=== PATIENT | female | born 1960 | race Caucasian/White ===

== ENCOUNTER 2019-12-13 08:59 | Outpatient (REF) | payer MEDICARE, MEDICAID, SELFPAY | END 2019-12-13 09:00 | disposition home or self-care (01) | LOC: HO.RADIR 08:59 | PROVIDERS: PCP Nurse Practitioner Family; Referring Provider Nurse Practitioner Family; Visit Provider Anesthesiology | DX: M96.1 Postlaminectomy syndrome, not elsewhere classified (principal); A69.20 Lyme disease, unspecified; G89.4 Chronic pain syndrome | CPT/HCPCS: 62370 ==

== ENCOUNTER 2020-01-24 | Outpatient (REF) | payer MEDICARE, MEDICAID, SELFPAY | END 2020-01-24 00:01 | LOC: CF | PROVIDERS: Visit Provider Anesthesiology | DX: M96.1 Postlaminectomy syndrome, not elsewhere classified (principal); Z79.899 Other long term (current) drug therapy | CPT/HCPCS: 62370 ==

== ENCOUNTER 2020-02-28 05:47 | Outpatient (REF) | payer MEDICARE, MEDICAID, SELFPAY ==
--- NOTE | 2020-02-28 08:14 | FL_ITS ---
EXAMINATION: XR FLUOROSCOPY WITH IMAGES CLINICAL INFORMATION: Post laminectomy syndrome. COMPARISON: None. TECHNIQUE: Fluoroscopy performed by Stacie Barber NP. Fluoroscopy time: 0.2 minutes DAP: 3.61 Gycm2 Images: 1 FINDINGS: There is hardware battery pack overlying the left iliac crest. No gross soft tissue abnormality seen. FL/FL guidance in treatment room IMPRESSION: Single image overlying the iliac bone was obtained with hardware battery pack visualized.
== END 2020-02-28 05:48 | disposition home or self-care (01) ==
LOC: HO.RADIR 05:47
PROVIDERS: Visit Provider Anesthesiology
DX: M96.1 Postlaminectomy syndrome, not elsewhere classified (principal)
CPT/HCPCS: 61070; Q9967

== ENCOUNTER 2020-03-05 08:10 | Day surgery (SDC) | payer MEDICARE, MEDICAID, SELFPAY ==
[2020-03-05] VITALS (11 sets, daily range): BP systolic 111–151; BP diastolic 70–90; PULSE 70–80; RESP 16–20; TEMP 36.1–36.4; O2SAT 95–98; BMI 33.7
--- NOTE | 2020-03-05 08:24 | MHC.SHP ---
Pre-Procedural Eval Section A The patient is an INPATIENT: No The History & Physical has been completed within 30 days and I have reviewed it.: No Section B Chief Complaint: postlaminectomy syndrome Details of Present Illness: malfunction of the IT catheter Relevant Family History (Specify if Yes): No Relevant Social History: None Present Medications: see Short Stay Collaborative assessment Medical History: No relevant PMH History of Previous Operations: Relevant previous surgery/procedure and date(s) Allergies: Allergies Allergy/AdvReac Type Severity Reaction Status Date / Time codeine Allergy Unknown Unknown Verified 02/28/20 09:11 nabumetone Allergy Unknown unknown Verified 02/28/20 09:11 adhesive tape Allergy Unknown Unknown Uncoded 12/13/19 09:27 latex Allergy Unknown unknown Uncoded 12/13/19 09:27 pollen Allergy Unknown Unknown Uncoded 12/13/19 09:27 Review of Systems Sugical H&P ROS: Negative: Cardiovascular, Respiratory, Neurological, Psychiatric, Hem-Onc, Allergic/Immunologic, Gastrointestinal, Genitourinary, Musculoskeletal, Integumentary, Endocrine and Eyes/Ears/Nose/Throat and Yes, Specify: Constitution (obesity) Exam Surgical H&P Exam: Normal: HEENT, Normal: Heart, Normal: Lungs, Normal: Extremities, Normal: Abdomen, Normal: Skin and Normal: Neurological Plan Diagnosis/Plan: Unchanged I have reviewed the history and physical and performed a pertinent physical examination on my patient. No changes have occurred unless specified.
[2020-03-05] MEDS: Lactated Ringers 1,000 ML 100 ML IVCONT (09:11)
[2020-03-05] MEDS: ceFAZolin Sodium/Dextrose,Iso 2 GM/50 ML PIGGYBACK IV (09:14)
--- NOTE | 2020-03-05 09:42 | HO.ANESPROP2 ---
HPI - Anesthesia Eval Consult details Narrative: 60 yo female patient here for removal and replacement of intrathecal drug delivery implanted catheter. [facility] Past Medical History Medical History (Updated 03/05/20 @ 09:55 by Kori Rod) Back pain COPD (chronic obstructive pulmonary disease) GERD (gastroesophageal reflux disease) Hypothyroid Increased BMI Postlaminectomy syndrome Presence of intrathecal pump Family History Family history of problems with anesthesia: No Surgical History Surgical History (Updated 03/05/20 @ 09:52 by Fina Reynolds RN) History of hip surgery History of hysterectomy History of Problems with Anesthesia: Yes (Slow awakening) Social History Social History (Updated 03/05/20 @ 09:55 by Kori Rod) Smoking Status: Current every day smoker Packs Per Day: 1.5 Cigarettes Per Day: 30.0 Smoked in Last 30 Days: Yes Use of substances other than those prescribed or required for medical reasons: No Advance Directives: No Advance Directives Information Provided: No Recently lost weight without trying: No Meds Allergies Allergy/AdvReac Type Severity Reaction Status Date / Time codeine Allergy Unknown Unknown Verified 02/28/20 09:11 nabumetone Allergy Unknown unknown Verified 02/28/20 09:11 adhesive tape Allergy Unknown Unknown Uncoded 12/13/19 09:27 latex Allergy Unknown unknown Uncoded 12/13/19 09:27 pollen Allergy Unknown Unknown Uncoded 12/13/19 09:27 Home Medications Medication Instructions Recorded Confirmed Type cholecalciferol (vitamin D3) 1 tab PO BID 03/05/20 03/05/20 History [Vitamin D3] escitalopram oxalate 1 tab PO DAILY 03/05/20 03/05/20 History fluconazole PO 03/05/20 History fluticasone propionate [Flovent INHALATION 03/05/20 History HFA] lorazepam 2 tab PO BID PRN 03/05/20 03/05/20 History omeprazole 1 cap PO DAILY 03/05/20 03/05/20 History Exam Exam Date and Time: March 05, 2020 0942 Height,Weight and Vital Signs: Height 5 ft 10 in Weight 106.594 kg Last Vital Signs Temp 97.6 F 03/05/20 08:53 Pulse 73 03/05/20 08:53 Resp 16 03/05/20 08:53 BP 121/70 03/05/20 08:53 Pulse Ox 98 03/05/20 08:53 Assessment and Plan Assessment Anesthesia Assessment: Anesthesia Plan Discussed and Chart Reviewed Final Anesthetic Review NPO: No (Black dillon 7am) ASA Class: II Final Preanesthetic Review: No Changes in Pt Med Stat, Meds/Allgs Chart Reviewed and Anes Risks/Benef Reviewed Patient Risk: Intermediate Procedure Risk: Low Anesthetic Plan Anesthetic Plan: GA Disposition: Standard PACU
--- NOTE | 2020-03-05 10:38 | FL_ITS ---
EXAMINATION: XR FLUOROSCOPY WITH IMAGES CLINICAL INFORMATION: Postlaminectomy syndrome. COMPARISON: Fluoroscopic spot images 02/28/2020 TECHNIQUE: Fluoroscopy performed by Dr. Duc Slaughter. Fluoroscopy time: 0.5 minutes DAP: 3.03 Gycm2 Images: 2 FINDINGS: There is a catheter with guidewire in the spinal canal, cyber special agent likely upper lumbar region. Pump device again seen. There are degenerative changes lower thoracic spine with disc narrowing and vertebral spurring and borderline loss of height. FL/FL guidance in OR IMPRESSION: Fluoroscopy for pain management procedure.
--- NOTE | 2020-03-05 14:05 | PM.OP ---
Brief Operative Note Date of Service: 03/05/20 Pre-op diagnosis: postlaminectomy syndrome Procedure: revision and replacement of intrathecal cather Implants: re- implantation of synchromed II pain pump Surgeon: Duc Slaughter MD Anesthesia: GETA Estimated blood loss (mL): 5 Condition: stable Disposition: PACU
[2020-03-05] MEDS: fentaNYL citrate/PF 100 MCG/2 ML VIAL 25 MCG IVPUSH ×2 (14:47→14:53)
[2020-03-05] MEDS: oxyCODONE HCl Immed Release 5 MG TABLET PO (14:52)
--- NOTE | 2020-03-05 17:36 | P.BOP_ITS ---
Brief Operative Note Surgeon: Duc Slaughter MD
--- NOTE | 2020-03-05 17:36 | PM.OP ---
Brief Operative Note Surgeon: Duc Slaughter MD
--- NOTE | 2020-03-05 17:37 | W.PM.OPN ---
Operative Note Operative Note Date of Service: 03/05/20 Narrative: Name of the surgery: Removal and revision of the intrathecal catheter reimplantation of the intrathecal pain pump.. Preoperative diagnosis: Postlaminectomy syndrome. Postoperative diagnosis: The same Anesthesia general endotracheal anesthesia Preoperative antibiotic: Cefazolin 2 g IV 30 minutes before the incision. Postoperatively patient will continue with Keflex 500 mg 2 pills every 6 hours for next 14 days. .. Patient will take probiotics in between his antibiotic doses. After obtaining informed consent with explanation to the patient about the risks of bleeding, infection, epidural hematoma, epidural abscess, failure to reduce the pain, the patient was brought to the operating room. She was positioned supine on the operating table and [employer] [employer] monitors were applied to the patient. General anesthesia was induced and endotracheal intubation was performed. The patient was turned on right lateral decubital position with axillary roll and a airplane support -on non dependent left forearm and arm. The patient's back left flank and left anterior abdomen was prepped with ChloraPrep 3 times t and draped with sterile full body drapes. Ioban film was involved. Sterilely draped C-arm was brought over the operating field and lateral picture of the L5 through L1 vertebra as were obtained on the screen. The entrance point was ill in delineated as the L1-L2 interspace. Local anesthetic was injected into the projection of the spinal processes of L3-L4 vertebrae. Fifteen blade scalpel was used to make longitudinal strict midline incision approximately 6 cm long. The incision was widened using [place] retractor. Thorough hemostasis was performed with electrocautery. The underlying fat tissues were severed and the prevertebral fascia was freed and exposed. Projection of the right pedicle to the prevertebral fascia was uses in the entrance point of the introducer 14 gauge needle. The needle was advanced to wired the intrathecal space on anterior posterior and lateral views. When needle entered the intrathecal space free flow of CSF was demonstrated in the needle. The CSF was clear straw-colored and without any addition of the blood. Intrathecal catheter was inserted through the needle into the intrathecal space and advanced to were the T8 vertebra on lateral projection. The catheter was appear to be in the posterior intrathecal space. Tycron sutures 2-0 was used to perform a pursestring suture surrounding the introducer needle. The pursestring suture was tied and after that the introducer needle was slowly withdrawn. Care was taken to control the position of the tip of the catheter at the T8 vertebra in lateral projection. The stylet was removed from the catheter with the needle. The anchoring device was dislodged on the catheter and advanced to the level of prevertebral fascia. Tycron sutures were used to suture the anchoring device to the prevertebral fascia. After that the wound was irrigated with vancomycin containing irrigation. The wound was packed with vancomycin solution soaked 4 x 4. The attention then was concentrated on the left abdomen of the patient where the scar of the previous implantation of the pain pump was delineated. The scar was injected with local anesthetic and using 15 blade scalpel the scar was excised with underlying fat tissues. Intrathecal pump was discovered in the pocket a and delivered to the level of the skin. Intrathecal catheter was examined and severed from the catheter. Scan flow of CSF was observed . The CSF was clear in nature. The remnant of the catheter was folded on itself and 2 silk sutures were used to tie the old intrathecal catheter on. After that the posterior wall of the pump capsule pocket was incised a and the intrathecal catheter was inserted into the incision. None interrupted again suture was used to close this incision in the posterior wall of the capsule. Thorough irrigation was performed with vancomycin containing normal saline. Intrathecal catheter was delivered on operating table. It was examined and found without significant problems. After that tunneling device was used to connect both wounds through 1 additional small incision on the patient's flank. Intrathecal catheter was advanced through subcutaneous tissue into the abdominal wound. Sutureless connection device was mounted on the intrathecal catheter and fastened with sutureless connector. After that it was connected to the pump. 24 gauge noncoring needle was inserted through the lateral port of the pump and clear flow of CSF was demonstrated with aspiration of 3 cc syringe. Anchoring sutures in most superior lateral most superior medial and most inferior medial corners of the wounds were applied using Tycron stitch. The sutures were connected to the side brackets of the pump, the pump was dislodged into the pocket wound, the sutures were tied. After that 24 gauge needle mounted on 3 cc syringe was again inserted into the side port of the catheter. The clear flow of CSF was again demonstrated into the 3 cc syringe. The wounds were irrigated, dried out, and closed using 0 Vicryl sutures to close the wound, 2-0 Vicryl to approximate the edges of the skin, and williams to apply to the level of the skin. Sterile dressings with bacitracin ointment were applied using Tegaderm. After that the patient was turned on supine awaken and extubated she was transferred to PACU where she recovered uneventfully. She went home without immediate complications.
== END 2020-03-05 15:58 | disposition home or self-care (01) ==
PROVIDERS: PCP Nurse Practitioner Family; Visit Provider Anesthesiology
PROC: (CPT 62350; principal; 2020-03-05 10:00)
DX: M96.1 Postlaminectomy syndrome, not elsewhere classified (principal); J44.9 Chronic obstructive pulmonary disease, unspecified; Z79.899 Other long term (current) drug therapy; Z91.040 Latex allergy status; Z88.8 Allergy status to other drugs, medicaments and biological substances
CPT/HCPCS: 62350; 62362; C1755; J0330; J0690; J1100; J2250; J2370; J2405; J2765; J3010; J3370

== ENCOUNTER → 2020-03-06 08:56 | Outpatient (BNVA) | payer MEDICARE, MEDICAID, SELFPAY | PROVIDERS: PCP Nurse Practitioner Family; Visit Provider Anesthesiology | DX: M96.1 Postlaminectomy syndrome, not elsewhere classified (principal) | CPT/HCPCS: 99212 ==

== ENCOUNTER → 2020-03-14 13:48 | Outpatient (BNVA) | payer MEDICARE, MEDICAID, SELFPAY | PROVIDERS: PCP Nurse Practitioner Family; Visit Provider Anesthesiology | DX: M96.1 Postlaminectomy syndrome, not elsewhere classified (principal) | CPT/HCPCS: 99212 ==

== ENCOUNTER 2020-03-19 11:42 | Outpatient (REF) | payer MEDICARE, MEDICAID, SELFPAY | END 2020-03-19 11:43 | disposition home or self-care (01) | LOC: HO.RADIR 11:42 | PROVIDERS: PCP Nurse Practitioner Family; Visit Provider Anesthesiology | DX: Z13.89 Encounter for screening for other disorder (principal) ==

== ENCOUNTER 2020-06-05 06:12 | Outpatient (REF) | payer MEDICARE, MEDICAID, SELFPAY | END 2020-06-05 06:13 | disposition home or self-care (01) | LOC: HO.RADIR 06:12 | PROVIDERS: Visit Provider Anesthesiology | DX: Z13.89 Encounter for screening for other disorder (principal) ==

== ENCOUNTER 2020-08-21 06:17 | Outpatient (REF) | payer MEDICARE, MEDICAID, SELFPAY | END 2020-08-21 06:18 | disposition home or self-care (01) | LOC: HO.RADIR 06:17 | PROVIDERS: Visit Provider Anesthesiology | DX: Z13.89 Encounter for screening for other disorder (principal) ==

== ENCOUNTER 2020-11-13 06:25 | Outpatient (REF) | payer MEDICARE, MEDICAID, SELFPAY | END 2020-11-13 06:26 | disposition home or self-care (01) | LOC: HO.RADIR 06:25 | PROVIDERS: Visit Provider Anesthesiology | DX: Z13.89 Encounter for screening for other disorder (principal) ==

== ENCOUNTER 2021-02-12 06:09 | Outpatient (REF) | payer MEDICARE, MEDICAID, SELFPAY | END 2021-02-12 06:10 | disposition home or self-care (01) | LOC: HO.RADIR 06:09 | PROVIDERS: Visit Provider Anesthesiology | DX: Z13.89 Encounter for screening for other disorder (principal) ==

== ENCOUNTER 2021-05-07 06:03 | Outpatient (REF) | payer MEDICARE, MEDICAID, SELFPAY | END 2021-05-07 06:04 | disposition home or self-care (01) | LOC: HO.RADIR 06:03 | PROVIDERS: Visit Provider Anesthesiology | DX: Z13.89 Encounter for screening for other disorder (principal) ==

== ENCOUNTER → 2021-06-03 13:58 | Outpatient (BNVA) | payer MEDICARE, MEDICAID, SELFPAY | PROVIDERS: PCP Nurse Practitioner Family; Visit Provider Anesthesiology | DX: Z45.1 Encounter for adjustment and management of infusion pump (principal); G89.4 Chronic pain syndrome; M96.1 Postlaminectomy syndrome, not elsewhere classified | CPT/HCPCS: 99212 ==

== ENCOUNTER → 2021-06-05 15:33 | Outpatient (BNVA) | payer MEDICARE, MEDICAID, SELFPAY | PROVIDERS: PCP Nurse Practitioner Family; Visit Provider Anesthesiology | DX: M96.1 Postlaminectomy syndrome, not elsewhere classified (principal); G89.4 Chronic pain syndrome; Z97.8 Presence of other specified devices | CPT/HCPCS: 99212 ==

== ENCOUNTER 2021-07-17 06:16 | Outpatient (REF) | payer MEDICARE, MEDICAID, SELFPAY | END 2021-07-17 06:17 | disposition home or self-care (01) | LOC: HO.RADIR 06:16 | PROVIDERS: Visit Provider Internal Medicine | DX: Z45.1 Encounter for adjustment and management of infusion pump (principal); G89.4 Chronic pain syndrome; M25.562 Pain in left knee; Z97.8 Presence of other specified devices | CPT/HCPCS: 62370; 64447 ==

== ENCOUNTER → 2021-08-16 11:51 | Outpatient (BNVA) | payer MEDICARE, MEDICAID, SELFPAY | PROVIDERS: PCP Nurse Practitioner Family; Visit Provider Internal Medicine | DX: G89.4 Chronic pain syndrome (principal); M25.562 Pain in left knee; Z98.890 Other specified postprocedural states | CPT/HCPCS: Q3014 ==

== ENCOUNTER 2021-10-09 08:47 | Day surgery (SDC) | payer MEDICARE, MEDICAID, SELFPAY ==
[2021-10-09 09:00] VITALS: BMI 33.0
[2021-10-09 09:05] VITALS: BP 125/63; PULSE 73; RESP 18; TEMP 36.8; O2SAT 97
--- NOTE | 2021-10-09 10:36 | MHC.SHP ---
Pre-Procedural Eval Section A Date of Service: 10/09/21 The patient is an INPATIENT: No Changes since office visit: Yes Patient answered all questions The History & Physical has been completed within 30 days and I have reviewed it.: No Section B Chief Complaint: left knee pain Relevant Family History (Specify if Yes): No Relevant Social History: None Present Medications: see Short Stay Collaborative assessment Medical History: No relevant PMH History of Previous Operations: No relevant previous surgery Allergies: Allergies Allergy/AdvReac Type Severity Reaction Status Date / Time codeine Allergy Unknown Unknown Verified 09/23/21 10:46 nabumetone Allergy Unknown unknown Verified 09/23/21 10:46 adhesive tape Allergy Unknown Unknown Uncoded 09/23/21 10:46 latex Allergy Unknown unknown Uncoded 09/23/21 10:46 pollen Allergy Unknown Unknown Uncoded 09/23/21 10:46 Review of Systems Sugical H&P ROS: Negative: Constitution, Cardiovascular and Respiratory Exam Surgical H&P Exam: Normal: HEENT, Normal: Heart and Normal: Lungs Plan I have reviewed the history and physical and performed a pertinent physical examination on my patient. No changes have occurred unless specified.
--- NOTE | 2021-10-09 10:37 | P.BOP_ITS ---
Brief Operative Note Date of Service: 10/09/21 Pre-op diagnosis: Left chronic knee pain Post-op diagnosis: same Procedure: Left saphenous nerve temporary peripheral nerve stimulator placement Implants: Sprint PNS system Surgeon: Timi Wong MD Anesthesia: local Was an Marketing Production Specialist used for this Procedure?: No Estimated blood loss (mL): 2 Pathology: none sent Condition: stable Disposition: same day
--- NOTE | 2021-10-09 10:38 | W.PM.OPN ---
Operative Note Operative Note Date of Service: 10/09/21 Narrative: Peripheral Nerve Stimulation Temporary Lead Placement, Ultrasound-Guided, Saphenous Nerve, Left ? After the risks, benefits and alternatives were discussed with the patient and informed consentwas obtained, patient was placed in the supine position and padded to foster comfort. Appropriate skin and bony landmarks were identified, and pertinent vascular structures were located. The skin overlying the needle entry site was prepped and draped in sterile fashion. Ultrasound was used to identify the femoral artery, the femoral vein and the saphenous nerve. After identifying and marking the intended target along the course of the saphenous nerve, the skin around the planned entry point and the subcutaneous tissues were injected with local anesthetic. An introducer needle and stimulating probe were assembled, inserted and advanced along the intended course of the saphenous; nerve, taking care to maintain the proper depth of insertion as the introducer was advanced under ultrasound guidance. The introducer needle was delivered to a location in proximity to the nerve taking care not to puncture the femoral artery or the vein. Multiple stimulation parameters were used to deliver stimulation to the saphenous nerve in concert with stimulating at multiple positions around the nerve. Nerve target acquisition was confirmed noting generation of sensory and mild motor effects (paresthesia, muscle tension, etc) in the medial knee; corresponding to the distribution of the saphenous nerve. Various electrical parameter combinations were tested, and the lead location was adjusted (physically relocated under ultrasound guidance) until the patient indicated medial knee paresthesia and tension overlapping the distribution of the patient?s typical region of pain. The stimulating probe was removed from the introducer and a percutaneous lead was guided through the needle and delivered to a location in similar proximity to the nerve. Final location was verified with electrical stimulation and documented. The introducer needle was removed, and the exposed end of the percutaneous lead was attached to an external stimulator unit. Various electrical parameter combinations were again tested until the patient indicated paresthesia and muscle tension overlapping the distribution of the patient?s typical region of pain. After confirming that lead impedance was in the normal range, the external unit was detached, the needle was removed, and the lead was anchored at the skin. The lead was threaded into the connector block and electrical continuity and desired patient response was confirmed. The connector block was attached to the external stimulator unit. The site was covered with a sterile occlusive dressing. A final ultrasound image was taken to document final placement. The patient was observed for stability of vital signs and comfort.
[2021-10-09 11:16] VITALS: BP 118/64; PULSE 74; RESP 18; TEMP 36.4; O2SAT 96
== END 2021-10-09 12:35 | disposition home or self-care (01) ==
PROVIDERS: PCP Nurse Practitioner Family; Visit Provider Internal Medicine
PROC: (CPT 64555; principal; 2021-10-09 10:10)
DX: M25.562 Pain in left knee (principal); G89.4 Chronic pain syndrome; M54.9 Dorsalgia, unspecified; J44.9 Chronic obstructive pulmonary disease, unspecified; E03.9 Hypothyroidism, unspecified; Z88.8 Allergy status to other drugs, medicaments and biological substances; Z91.040 Latex allergy status; Z97.8 Presence of other specified devices; F17.210 Nicotine dependence, cigarettes, uncomplicated
CPT/HCPCS: 64555; C1778

== ENCOUNTER → 2021-10-21 09:41 | Outpatient (BNVA) | payer MEDICARE, MEDICAID, SELFPAY | PROVIDERS: PCP Nurse Practitioner Family; Visit Provider Internal Medicine | DX: M25.562 Pain in left knee (principal); G89.4 Chronic pain syndrome; Z79.899 Other long term (current) drug therapy | CPT/HCPCS: 99212 ==

== ENCOUNTER → 2021-12-06 09:13 | Outpatient (BNVA) | payer MEDICARE, MEDICAID, SELFPAY | PROVIDERS: PCP Nurse Practitioner Family; Visit Provider Internal Medicine | DX: M25.561 Pain in right knee (principal); M25.562 Pain in left knee | CPT/HCPCS: 20610; 99212 ==

== ENCOUNTER → 2022-02-03 10:55 | Outpatient (BNVA) | payer MEDICARE, MEDICAID, SELFPAY | PROVIDERS: PCP Nurse Practitioner Family; Visit Provider Anesthesiology | DX: M96.1 Postlaminectomy syndrome, not elsewhere classified (principal); M25.561 Pain in right knee; M25.562 Pain in left knee; G89.4 Chronic pain syndrome | CPT/HCPCS: 99212 ==

== ENCOUNTER → 2022-04-09 10:50 | Outpatient (BNVA) | payer MEDICARE, MEDICAID, SELFPAY | PROVIDERS: PCP Nurse Practitioner Family; Visit Provider Anesthesiology | DX: M96.1 Postlaminectomy syndrome, not elsewhere classified (principal); M25.561 Pain in right knee; M25.562 Pain in left knee; G89.4 Chronic pain syndrome | CPT/HCPCS: 99212 ==

== ENCOUNTER → 2022-04-16 13:58 | Outpatient (BNVA) | payer MEDICARE, MEDICAID, SELFPAY | PROVIDERS: PCP Nurse Practitioner Family; Visit Provider Anesthesiology | DX: G89.4 Chronic pain syndrome (principal); M54.9 Dorsalgia, unspecified; M25.561 Pain in right knee; M25.562 Pain in left knee; M96.1 Postlaminectomy syndrome, not elsewhere classified; Z97.8 Presence of other specified devices | CPT/HCPCS: 99212 ==

== ENCOUNTER → 2022-06-11 10:25 | Outpatient (BNVA) | payer MEDICARE, MEDICAID, SELFPAY | PROVIDERS: PCP Nurse Practitioner Family; Visit Provider Anesthesiology ==

== ENCOUNTER → 2022-09-18 10:02 | Outpatient (BNVA) | payer MEDICARE, MEDICAID, SELFPAY | PROVIDERS: PCP Nurse Practitioner Family; Visit Provider Anesthesiology ==

== ENCOUNTER 2022-12-24 09:57 | Outpatient (AMB) | payer MEDICARE, MEDICAID, SELFPAY ==
--- NOTE | 2022-12-24 10:00 | A.OFFVIS_ITS ---
Intake Vital Signs 12/24/22 10:09 Height 5 ft 10 in Weight 206 lb 6 oz BMI 29.6 BP 126/72 Position Sitting Respiration 16 Pulse 94 Pulse Source Pulse Oximeter Pulse Oximetry (%) 94 Oxygen Delivery Method Room Air Intake Visit Reasons: ITDD Refill Allergies codeine Allergy (Unknown, Verified 12/24/22 10:10) Unknown nabumetone Allergy (Unknown, Verified 12/24/22 10:10) unknown adhesive tape Allergy (Unknown, Uncoded 04/09/22 12:27) Unknown latex Allergy (Unknown, Uncoded 04/09/22 12:27) unknown pollen Allergy (Unknown, Uncoded 04/09/22 12:27) Unknown HPI HPI Comments History of Present Illness Details Danielle is 62 years old very nice lady who is in my office for intrathecal pain pump refill. Her pain pump is located in the left abdomen. She is not on any oral opioid medications. She reports good efficient pain relief on the pain pump. Her pump is 40 cc. The pump refilled as below. I will schedule her appointment with me in 90 days for the next pump refill. [facility] Medical History (Updated 12/06/21 @ 12:11 by Timi Wong MD) Presence of intrathecal pump Chronic pain syndrome Increased BMI Presence of intrathecal pump Back pain Hypothyroid GERD (gastroesophageal reflux disease) COPD (chronic obstructive pulmonary disease) Postlaminectomy syndrome Surgical History (Updated 03/05/20 @ 09:52 by Fina Reynolds RN) History of hip surgery History of hysterectomy Social History (Updated 03/05/20 @ 09:55 by Kori Rod MD) Cigarette Packs Per Day: 1.5 Cigarettes Per Day: 30.0 Review of Systems Const All systems reviewed & are unremarkable except as noted in HPI and below Physical Exam Vital Signs: Last Vital Signs Pulse 94 12/24/22 10:09 Resp 16 12/24/22 10:09 BP 126/72 12/24/22 10:09 Pulse Ox 94 12/24/22 10:09 Oxygen Delivery Method Room Air 12/24/22 10:09 BMI result Body Mass Index 29.6 Eyes General: appearance normal, both eyes and all related structures EOM: EOMs intact bilaterally Neck Neck: Yes full ROM Chest Chest palpation & inspection: normal inspection of the chest Resp Effort & Inspection: normal respiratory effort, able to speak in complete sentences, normal respiratory pattern, no audible wheezes and no cough Cardio Jugular venous distension: no JVD GI Inspection: Yes normal to inspection Back/Spine/Pelvis Back: No mass, No erythema and No warmth Assessment & Plan Assessment & Plan (1) Postlaminectomy syndrome: Code(s): M96.1 - Postlaminectomy syndrome, not elsewhere classified Plan: THE PATIENT CAME TODAY IN THE office FOR THE CHANGE OF THE MEDICATION IN her PAIN PUMP. The name and date of were verified and informed consent was obtained for the procedure. The pump was interrogated and the residual amount of fluid was found to be 5.6 mL. SHE WAS POSITIONED supine on the bed AND THE AREA OF THE INTRATHECAL PUMP WAS PREPPED WITH CHLORAPREP. The fenestrated drape was sterilely applied over the area of the pump. Sterile gloves were worn and of the aspiration system was assembled containing 2 in 22 gauge non-coring needle, the needle was connected to extension tubing which was connected to the 20 cc sterile syringe. The pain pump was palpated under the skin in the patient's left abdominal area. The needle was inserted through the skin and the central plug of the pain pump and fluid was aspirated. The clear fluid was going into the syringe the total amount of the fluid was 6.3 mL. After that a new batch of medication was obtained which was containing morphine 2 mg and bupivacaine 15 mg per mL. The admixture was made in two 20 cc cc syringe prepared by [facility] compounding pharmacy. The syringe was connected to the bacterial filter, and then connected to the extension tubing. After that the medication in the syringe was slowly instilled into the pump with aspirations at 35 , 25 and 10 and 5 cc sanchez. The programing of the pump left as it was before. Her next appointment is on on before March of 2023. The next batch of the medication will contain morphine 2 mg and bupivacaine 15 milligrams/mL (2) Bilateral knee pain: Code(s): M25.561 - Pain in right knee; M25.562 - Pain in left knee (3) Left knee pain: Code(s): M25.562 - Pain in left knee (4) Chronic pain syndrome: Code(s): G89.4 - Chronic pain syndrome Plan: She complains today on will slightly stronger level of pains and inability to activate the device when she needs to activate them. Coding Level of Care Code Est Pt Level 3 (62804) Procedure Only Diagnoses Postlaminectomy syndrome M96.1 Bilateral knee pain M25.561; M25.562 Left knee pain M25.562 Chronic pain syndrome G89.4
[2022-12-24 10:09] VITALS: BP 126/72; PULSE 94; RESP 16; O2SAT 94; BMI 29.6
== END 2022-12-24 10:26 | disposition home or self-care (01) ==
PROVIDERS: PCP Nurse Practitioner Family; Visit Provider Anesthesiology
DX: Z45.1 Encounter for adjustment and management of infusion pump (principal); G89.4 Chronic pain syndrome; M96.1 Postlaminectomy syndrome, not elsewhere classified; M25.561 Pain in right knee; M25.562 Pain in left knee
CPT/HCPCS: 95991

== ENCOUNTER → 2022-12-24 09:57 | Outpatient (BNVA) | payer MEDICARE, MEDICAID, SELFPAY | PROVIDERS: PCP Nurse Practitioner Family; Visit Provider Anesthesiology ==

== ENCOUNTER 2023-03-25 09:55 | Outpatient (AMB) | payer MEDICARE, MEDICAID, SELFPAY ==
--- NOTE | 2023-03-25 10:10 | MHC.OFFVIS ---
Intake Vital Signs 03/25/23 10:42 Height 5 ft 10 in Weight 201 lb BMI 28.8 BP 136/60 Blood Pressure Location Lt brachial Position Sitting Respiration 14 Pulse 99 Pulse Source Pulse Oximeter Pulse Oximetry (%) 100 Oxygen Delivery Method Room Air Intake Visit Reasons: ITDD REFILL Intake Note: Patient comes in for intrathecal medication refill. Reports pain 0/10. Allergies codeine Allergy (Unknown, Verified 03/25/23 10:43) Unknown nabumetone Allergy (Unknown, Verified 03/25/23 10:43) unknown adhesive tape Allergy (Unknown, Uncoded 04/09/22 12:27) Unknown latex Allergy (Unknown, Uncoded 04/09/22 12:27) unknown pollen Allergy (Unknown, Uncoded 04/09/22 12:27) Unknown [facility] Medical History (Updated 12/06/21 @ 12:11 by Timi Wong MD) Presence of intrathecal pump Chronic pain syndrome Increased BMI Presence of intrathecal pump Back pain Hypothyroid GERD (gastroesophageal reflux disease) COPD (chronic obstructive pulmonary disease) Postlaminectomy syndrome Surgical History (Updated 03/05/20 @ 09:52 by Fina Reynolds RN) History of hip surgery History of hysterectomy Social History (Updated 03/05/20 @ 09:55 by Kori Rod MD) Cigarette Packs Per Day: 1.5 Cigarettes Per Day: 30.0 Physical Exam Vital Signs: Last Vital Signs Pulse 99 03/25/23 10:42 Resp 14 03/25/23 10:42 BP 136/60 03/25/23 10:42 Pulse Ox 100 03/25/23 10:42 Oxygen Delivery Method Room Air 03/25/23 10:42 BMI result Body Mass Index 28.8 Assessment & Plan Assessment & Plan (1) Postlaminectomy syndrome: Code(s): M96.1 - Postlaminectomy syndrome, not elsewhere classified Plan: THE PATIENT CAME TODAY IN THE office FOR THE CHANGE OF THE MEDICATION IN her PAIN PUMP. The name and date of were verified and informed consent was obtained for the procedure. The pump was interrogated and the residual amount of fluid was found to be 7.6 mL. SHE WAS POSITIONED supine on the bed AND THE AREA OF THE INTRATHECAL PUMP WAS PREPPED WITH CHLORAPREP. The fenestrated drape was sterilely applied over the area of the pump. Sterile gloves were worn and of the aspiration system was assembled containing 2 in 22 gauge non-coring needle, the needle was connected to extension tubing which was connected to the 20 cc sterile syringe. The pain pump was palpated under the skin in the patient's left abdominal area. The needle was inserted through the skin and the central plug of the pain pump and fluid was aspirated. The clear fluid was going into the syringe the total amount of the fluid was7.8 mL. After that a new batch of medication was obtained which was containing morphine 2 mg and bupivacaine 15 mg per mL. The admixture was made in 40 cc cc syringe prepared by [facility]. The syringe was connected to the bacterial filter, and then connected to the extension tubing. After that the medication in the syringe was slowly instilled into the pump with aspirations at 35 , 25 and 10 and 5 cc sanchez. The programing of the pump left as it was before. Her next appointment is on on before March of 2023. The next batch of the medication will contain morphine 2 mg and bupivacaine 15 milligrams/mL (2) Bilateral knee pain: Code(s): M25.561 - Pain in right knee; M25.562 - Pain in left knee Plan: (3) Left knee pain: Code(s): M25.562 - Pain in left knee Plan: (4) Chronic pain syndrome: Code(s): G89.4 - Chronic pain syndrome Plan: Coding Level of Care Code Procedure Only Diagnoses Postlaminectomy syndrome M96.1 Bilateral knee pain M25.561; M25.562 Left knee pain M25.562 Chronic pain syndrome G89.4
[2023-03-25 10:42] VITALS: BP 136/60; PULSE 99; RESP 14; O2SAT 100; BMI 28.8
== END 2023-03-25 10:34 | disposition home or self-care (01) ==
PROVIDERS: PCP Nurse Practitioner Family; Visit Provider Anesthesiology
DX: Z45.1 Encounter for adjustment and management of infusion pump (principal); M96.1 Postlaminectomy syndrome, not elsewhere classified; M25.561 Pain in right knee; M25.562 Pain in left knee; G89.4 Chronic pain syndrome
CPT/HCPCS: 95991

== ENCOUNTER → 2023-03-25 09:55 | Outpatient (BNVA) | payer MEDICARE, MEDICAID, SELFPAY | PROVIDERS: PCP Nurse Practitioner Family; Visit Provider Anesthesiology ==

== ENCOUNTER 2023-07-01 10:09 | Outpatient (AMB) | payer MEDICARE, MEDICAID, SELFPAY ==
--- NOTE | 2023-07-01 10:19 | MHC.OFFVIS ---
Vital Signs 07/01/23 10:29 Height 5 ft 10 in Weight 215 lb 6 oz BMI 30.9 BP 128/60 Blood Pressure Location Lt brachial Position Sitting Respiration 16 Pulse 86 Pulse Source Pulse Oximeter Pulse Oximetry (%) 96 Oxygen Delivery Method Room Air Intake Visit Reasons: ITDD Refill Intake Note: Patient comes in for intrathecal medication refill. Reports pain 06/09. Allergies codeine Allergy (Unknown, Verified 07/01/23 10:32) Unknown nabumetone Allergy (Unknown, Verified 07/01/23 10:32) unknown adhesive tape Allergy (Unknown, Uncoded 04/09/22 12:27) Unknown latex Allergy (Unknown, Uncoded 04/09/22 12:27) unknown pollen Allergy (Unknown, Uncoded 04/09/22 12:27) Unknown HPI Comments Details: Danielle is 62 years old very nice lady who is in my office for intrathecal pain pump refill. She reported that she finally quit smoking. She stated that she is not smoking for 1 month in 1 week. She reports that she starts to feel better with her pain. I encouraged her to continue not to smoke. Her pain pump is located in the left abdomen. She is not on any oral opioid medications. She reports good efficient pain relief on the pain pump. Her pump is 40 cc. The pump refilled as below. I will schedule her appointment with me in 90 days for the next pump refill. It will be on 10/01/2023. [facility] Medical History (Updated 12/06/21 @ 12:11 by Timi Wong MD) Presence of intrathecal pump Chronic pain syndrome Increased BMI Presence of intrathecal pump Back pain Hypothyroid GERD (gastroesophageal reflux disease) COPD (chronic obstructive pulmonary disease) Postlaminectomy syndrome Surgical History (Updated 03/05/20 @ 09:52 by Fina Reynolds RN) History of hip surgery History of hysterectomy Social History (Updated 03/05/20 @ 09:55 by Kori Rod MD) Cigarette Packs Per Day: 1.5 Cigarettes Per Day: 30.0 Review of Systems Const All systems reviewed & are unremarkable except as noted in HPI and below Physical Exam Vital Signs: Last Vital Signs Pulse 86 07/01/23 10:29 Resp 16 07/01/23 10:29 BP 128/60 07/01/23 10:29 Pulse Ox 96 07/01/23 10:29 Oxygen Delivery Method Room Air 07/01/23 10:29 BMI result Body Mass Index 30.9 Eyes General: appearance normal, both eyes and all related structures EOM: EOMs intact bilaterally Neck Neck: Yes full ROM Chest Chest palpation & inspection: normal inspection of the chest Resp Effort & Inspection: normal respiratory effort, able to speak in complete sentences, normal respiratory pattern, no audible wheezes and no cough Cardio Jugular venous distension: no JVD GI Inspection: Yes normal to inspection Back/Spine/Pelvis Back: No mass, No erythema and No warmth Assessment & Plan Assessment & Plan (1) Postlaminectomy syndrome: Code(s): M96.1 - Postlaminectomy syndrome, not elsewhere classified Category: Medical Plan: THE PATIENT CAME TODAY IN THE office FOR THE CHANGE OF THE MEDICATION IN her PAIN PUMP. The name and date of were verified and informed consent was obtained for the procedure. The pump was interrogated and the residual amount of fluid was found to be 5.2 mL. SHE WAS POSITIONED supine on the bed AND THE AREA OF THE INTRATHECAL PUMP WAS PREPPED WITH CHLORAPREP. The fenestrated drape was sterilely applied over the area of the pump. Sterile gloves were worn and of the aspiration system was assembled containing 2 in 22 gauge non-coring needle, the needle was connected to extension tubing which was connected to the 20 cc sterile syringe. The pain pump was palpated under the skin in the patient's left abdominal area. The needle was inserted through the skin and the central plug of the pain pump and fluid was aspirated. The clear fluid was going into the syringe the total amount of the fluid was 5.6 mL. After that a new batch of medication was obtained which was containing morphine 2 mg and bupivacaine 15 mg per mL. The admixture was made in two 20 cc syringes prepared by [facility] compounding pharmacy. The syringe was connected to the bacterial filter, and then connected to the extension tubing. After that the medication in the syringe was slowly instilled into the pump with aspirations at 35 , 25 and 10 and 5 cc sanchez. The programing of the pump left as it was before. Her next appointment is 10/01/2023. The next batch of the medication will contain morphine 2 mg and bupivacaine 15 milligrams/mL (2) Bilateral knee pain: Code(s): M25.561 - Pain in right knee; M25.562 - Pain in left knee Category: Medical Plan: (3) Left knee pain: Code(s): M25.562 - Pain in left knee Category: Medical Plan: (4) Chronic pain syndrome: Code(s): G89.4 - Chronic pain syndrome Category: Medical Plan: Coding Level of Care Code Est Pt Level 3 (66154) Procedure Only Diagnoses Postlaminectomy syndrome M96.1 Bilateral knee pain M25.561; M25.562 Left knee pain M25.562 Chronic pain syndrome G89.4
[2023-07-01 10:29] VITALS: BP 128/60; PULSE 86; RESP 16; O2SAT 96; BMI 30.9
== END 2023-07-01 10:59 | disposition home or self-care (01) ==
PROVIDERS: PCP Nurse Practitioner Family; Visit Provider Anesthesiology
DX: M96.1 Postlaminectomy syndrome, not elsewhere classified (principal); M25.561 Pain in right knee; M25.562 Pain in left knee; G89.4 Chronic pain syndrome; Z45.1 Encounter for adjustment and management of infusion pump
CPT/HCPCS: 95991; 99213

== ENCOUNTER → 2023-07-01 10:09 | Outpatient (BNVA) | payer MEDICARE, MEDICAID, SELFPAY | PROVIDERS: PCP Nurse Practitioner Family; Visit Provider Anesthesiology | DX: Z96.82 Presence of neurostimulator (principal); M96.1 Postlaminectomy syndrome, not elsewhere classified; M25.561 Pain in right knee; M25.562 Pain in left knee; G89.4 Chronic pain syndrome; Z45.1 Encounter for adjustment and management of infusion pump | CPT/HCPCS: 99212 ==

== ENCOUNTER 2023-10-01 10:54 | Outpatient (AMB) | payer MEDICARE, MEDICAID, SELFPAY ==
--- NOTE | 2023-10-01 10:59 | MHC.OFFVIS ---
Vital Signs 10/01/23 11:45 Height 5 ft 10 in Weight 211 lb BMI 30.3 BP 126/59 L Blood Pressure Location Lt brachial Position Sitting Respiration 16 Pulse 82 Pulse Source Pulse Oximeter Pulse Oximetry (%) 96 Oxygen Delivery Method Room Air Intake Visit Reasons: ITDD REFILL Intake Note: Patient comes in for intrathecal medication refill. Reports pain 0/10. Allergies codeine Allergy (Unknown, Verified 10/01/23 11:59) Unknown nabumetone Allergy (Unknown, Verified 10/01/23 11:59) unknown adhesive tape Allergy (Unknown, Uncoded 04/09/22 12:27) Unknown latex Allergy (Unknown, Uncoded 04/09/22 12:27) unknown pollen Allergy (Unknown, Uncoded 04/09/22 12:27) Unknown HPI Comments Details: Danielle is 62 years old very nice lady who is in my office for intrathecal pain pump refill. She told me that her primary care physician for the treatment of ADHD wants to put her on Adderall. Unless it is combination of the Adderall with benzodiazepines I do not mind her taking Adderall. Otherwise she needs to be aware of Adderall side effects which is blood pressure and heart rate increase. In terms of respiratory depression Adderall is less than other medications affecting respiratory Center. Nevertheless I will prescribe the patient with Narcan. She stated that she had this medication before and now it . She continue not to smoke. She reports that she starts to feel better with her pain. I encouraged her to continue not to smoke. Her pain pump is located in the left abdomen. She is not on any oral opioid medications. She reports good efficient pain relief on the pain pump. Her pump is 40 cc. The pump refilled as below. I will schedule her appointment with me in 90 days for the next pump refill. It will be on 12/30/2023. Her pump needs to be replaced on or before June 2024. We need start planning surgery in April of 2024. [facility] Medical History (Updated 12/06/21 @ 12:11 by Timi Wong MD) Presence of intrathecal pump Chronic pain syndrome Increased BMI Presence of intrathecal pump Back pain Hypothyroid GERD (gastroesophageal reflux disease) COPD (chronic obstructive pulmonary disease) Postlaminectomy syndrome Surgical History (Updated 03/05/20 @ 09:52 by Fina Reynolds RN) History of hip surgery History of hysterectomy Social History (Updated 03/05/20 @ 09:55 by Kori Rod MD) Cigarette Packs Per Day: 1.5 Cigarettes Per Day: 30.0 Review of Systems Const All systems reviewed & are unremarkable except as noted in HPI and below Physical Exam Vital Signs: Last Vital Signs Pulse 82 10/01/23 11:45 Resp 16 10/01/23 11:45 BP 126/59 L 10/01/23 11:45 Pulse Ox 96 10/01/23 11:45 Oxygen Delivery Method Room Air 10/01/23 11:45 BMI result Body Mass Index 30.3 Eyes General: appearance normal, both eyes and all related structures EOM: EOMs intact bilaterally Neck Neck: Yes full ROM Chest Chest palpation & inspection: normal inspection of the chest Resp Effort & Inspection: normal respiratory effort, able to speak in complete sentences, normal respiratory pattern, no audible wheezes and no cough Cardio Jugular venous distension: no JVD GI Inspection: Yes normal to inspection Back/Spine/Pelvis Back: No mass, No erythema and No warmth Assessment & Plan Assessment & Plan (1) Postlaminectomy syndrome: Code(s): M96.1 - Postlaminectomy syndrome, not elsewhere classified Category: Medical Plan: THE PATIENT CAME TODAY IN THE office FOR THE CHANGE OF THE MEDICATION IN her PAIN PUMP. The name and date of were verified and informed consent was obtained for the procedure. The pump was interrogated and the residual amount of fluid was found to be 7.3 mL. SHE WAS POSITIONED supine on the bed AND THE AREA OF THE INTRATHECAL PUMP WAS PREPPED WITH CHLORAPREP. The fenestrated drape was sterilely applied over the area of the pump. Sterile gloves were worn and of the aspiration system was assembled containing 2 in 22 gauge non-coring needle, the needle was connected to extension tubing which was connected to the 20 cc sterile syringe. The pain pump was palpated under the skin in the patient's left abdominal area. The needle was inserted through the skin and the central plug of the pain pump and fluid was aspirated. The clear fluid was going into the syringe the total amount of the fluid was 7.0 mL. After that a new batch of medication was obtained which was containing morphine 2 mg and bupivacaine 15 mg per mL. The admixture was made in two 20 cc syringes prepared by [facility] compounding pharmacy. The syringe was connected to the bacterial filter, and then connected to the extension tubing. After that the medication in the syringe was slowly instilled into the pump with aspirations at 35 , 25 and 10 and 5 cc sanchez. The programing of the pump left as it was before. Her next appointment is 10/01/2023. The next batch of the medication will contain morphine 2 mg and bupivacaine 15 milligrams/mL (2) Bilateral knee pain: Code(s): M25.561 - Pain in right knee; M25.562 - Pain in left knee Category: Medical Plan: Naloxone is prescribed for the potential respiratory depression on 10/01/2023 (3) Left knee pain: Code(s): M25.562 - Pain in left knee Category: Medical Plan: (4) Chronic pain syndrome: Code(s): G89.4 - Chronic pain syndrome Category: Medical Plan: Medications: New naloxone 4 mg/actuation spray 1 dose into ONE nostril; alternate nostrils w each dose until help arrives 4 mg intranasal Q2M 2 ea 8RF 1 day Coding Level of Care Code Est Pt Level 3 (51566) Procedure Only Diagnoses Postlaminectomy syndrome M96.1 Bilateral knee pain M25.561; M25.562 Left knee pain M25.562 Chronic pain syndrome G89.4
[2023-10-01 11:45] VITALS: BP 126/59; PULSE 82; RESP 16; O2SAT 96; BMI 30.3
== END 2023-10-01 11:26 | disposition home or self-care (01) ==
PROVIDERS: PCP Nurse Practitioner Family; Visit Provider Anesthesiology
DX: M96.1 Postlaminectomy syndrome, not elsewhere classified (principal); M25.561 Pain in right knee; M25.562 Pain in left knee; G89.4 Chronic pain syndrome; Z45.1 Encounter for adjustment and management of infusion pump
CPT/HCPCS: 95991; 99213

== ENCOUNTER → 2023-10-01 10:54 | Outpatient (BNVA) | payer MEDICARE, MEDICAID, SELFPAY | PROVIDERS: PCP Nurse Practitioner Family; Visit Provider Anesthesiology | DX: M96.1 Postlaminectomy syndrome, not elsewhere classified (principal); M25.561 Pain in right knee; M25.562 Pain in left knee; G89.4 Chronic pain syndrome | CPT/HCPCS: 99212 ==

== ENCOUNTER 2023-12-30 10:56 | Outpatient (AMB) | payer MEDICARE, MEDICAID, SELFPAY ==
--- NOTE | 2023-12-30 10:57 | MHC.OFFVIS ---
Vital Signs 12/30/23 11:09 Height 5 ft 10 in Weight 218 lb 6 oz BMI 31.3 BP 134/60 Blood Pressure Location Lt brachial Position Sitting Respiration 16 Pulse 75 Pulse Source Pulse Oximeter Pulse Oximetry (%) 98 Oxygen Delivery Method Room Air Intake Visit Reasons: ITDD Pump Refill Intake Note: Patgient comes in for intrathecal medication refill. Reports pain 08/09. Allergies codeine Allergy (Unknown, Verified 10/01/23 11:59) Unknown nabumetone Allergy (Unknown, Verified 10/01/23 11:59) unknown adhesive tape Allergy (Unknown, Uncoded 04/09/22 12:27) Unknown latex Allergy (Unknown, Uncoded 04/09/22 12:27) unknown pollen Allergy (Unknown, Uncoded 04/09/22 12:) Unknown HPI Comments Details: Danielle is 62 years old very nice lady who is in my office for intrathecal pain pump refill. She stated today that her psychiatrist to her off of Adderall and started her on Inderal/propranolol. This is even safer and she is not at any risk for respiratory depression. Nevertheless she refilled her naloxone intranasal in September. In terms of respiratory depression Adderall is less than other medications affecting respiratory Center. Nevertheless I will prescribe the patient with Narcan. She stated that she had this medication before and now it . She reports that she starts to feel better with her pain. Her pain pump is located in the left abdomen. She is not on any oral opioid medications. She reports good efficient pain relief on the pain pump. Her pump is 40 cc. The pump refilled as below. I will schedule her appointment with me in 90 days for the next pump refill. It will be on 03/31/2024. Her pump needs to be replaced on or before June 2024. We need start planning surgery in April of 2024. [facility] Medical History (Updated 12/06/21 @ 12:11 by Timi Wong MD) Presence of intrathecal pump Chronic pain syndrome Increased BMI Presence of intrathecal pump Back pain Hypothyroid GERD (gastroesophageal reflux disease) COPD (chronic obstructive pulmonary disease) Postlaminectomy syndrome Surgical History (Updated 03/05/20 @ 09:52 by Fina Reynolds RN) History of hip surgery History of hysterectomy Social History (Updated 03/05/20 @ 09:55 by Kori Rod MD) Cigarette Packs Per Day: 1.5 Cigarettes Per Day: 30.0 Review of Systems Const All systems reviewed & are unremarkable except as noted in HPI and below Physical Exam Vital Signs: Last Vital Signs Pulse 75 12/30/23 11:09 Resp 16 12/30/23 11:09 BP 134/60 12/30/23 11:09 Pulse Ox 98 12/30/23 11:09 Oxygen Delivery Method Room Air 12/30/23 11:09 BMI result Body Mass Index 31.3 Eyes General: appearance normal, both eyes and all related structures EOM: EOMs intact bilaterally Neck Neck: Yes full ROM Chest Chest palpation & inspection: normal inspection of the chest Resp Effort & Inspection: normal respiratory effort, able to speak in complete sentences, normal respiratory pattern, no audible wheezes and no cough Cardio Jugular venous distension: no JVD GI Inspection: Yes normal to inspection Back/Spine/Pelvis Back: No mass, No erythema and No warmth Assessment & Plan Assessment & Plan (1) Postlaminectomy syndrome: Code(s): M96.1 - Postlaminectomy syndrome, not elsewhere classified Category: Medical Plan: THE PATIENT CAME TODAY IN THE office FOR THE CHANGE OF THE MEDICATION IN her PAIN PUMP. The name and date of were verified and informed consent was obtained for the procedure. The pump was interrogated and the residual amount of fluid was found to be 8 mL. SHE WAS POSITIONED supine on the bed AND THE AREA OF THE INTRATHECAL PUMP WAS PREPPED WITH CHLORAPREP. The fenestrated drape was sterilely applied over the area of the pump. Sterile gloves were worn and of the aspiration system was assembled containing 2 in 22 gauge non-coring needle, the needle was connected to extension tubing which was connected to the 20 cc sterile syringe. The pain pump was palpated under the skin in the patient's left abdominal area. The needle was inserted through the skin and the central plug of the pain pump and fluid was aspirated. The clear fluid was going into the syringe the total amount of the fluid was 8.0 mL. After that a new batch of medication was obtained which was containing morphine 2 mg and bupivacaine 15 mg per mL. The admixture was made in two 20 cc syringes prepared by [facility] compounding pharmacy. The syringe was connected to the bacterial filter, and then connected to the extension tubing. After that the medication in the syringe was slowly instilled into the pump with aspirations at 35 , 25 and 10 and 5 cc sanchez. The programing of the pump left as it was before. Her next appointment is 03/31/2024. The next batch of the medication will remain the same and will contain morphine 2 mg and bupivacaine 15 milligrams/mL (2) Bilateral knee pain: Code(s): M25.561 - Pain in right knee; M25.562 - Pain in left knee Category: Medical Plan: Naloxone is prescribed for the potential respiratory depression on 10/01/2023 she filled it up that in 10/02/2023. Her pump is getting to the end of the life. We would need to replace the pump in April of 2024. We need to start preparing for this procedure. (3) Left knee pain: Code(s): M25.562 - Pain in left knee Category: Medical Plan: (4) Chronic pain syndrome: Code(s): G89.4 - Chronic pain syndrome Category: Medical Plan: Coding Level of Care Code Est Pt Level 3 (15545) Procedure Only Diagnoses Postlaminectomy syndrome M96.1 Bilateral knee pain M25.561; M25.562 Left knee pain M25.562 Chronic pain syndrome G89.4
[2023-12-30 11:09] VITALS: BP 134/60; PULSE 75; RESP 16; O2SAT 98; BMI 31.3
== END 2023-12-30 11:27 | disposition home or self-care (01) ==
LOC: HO.PMC 10:57
PROVIDERS: PCP Nurse Practitioner Family; Visit Provider Anesthesiology
DX: M96.1 Postlaminectomy syndrome, not elsewhere classified (principal); M25.561 Pain in right knee; M25.562 Pain in left knee; G89.4 Chronic pain syndrome; Z45.1 Encounter for adjustment and management of infusion pump
CPT/HCPCS: 95991; 99213

== ENCOUNTER → 2023-12-30 10:56 | Outpatient (BNVA) | payer MEDICARE, MEDICAID, SELFPAY | PROVIDERS: PCP Nurse Practitioner Family; Visit Provider Anesthesiology | DX: Z45.89 Encounter for adjustment and management of other implanted devices (principal); M96.1 Postlaminectomy syndrome, not elsewhere classified; M25.561 Pain in right knee; M25.562 Pain in left knee; G89.4 Chronic pain syndrome | CPT/HCPCS: 99212 ==

== ENCOUNTER 2024-03-31 10:42 | Outpatient (AMB) | payer MEDICARE, MEDICAID, SELFPAY ==
--- NOTE | 2024-03-31 10:48 | A.OFFVIS_ITS ---
Vital Signs 03/31/24 10:56 Height 5 ft 10 in Weight 234 lb 6 oz BMI 33.6 BP 156/74 H Blood Pressure Location Rt brachial Position Sitting Pulse 82 Pulse Source Pulse Oximeter Intake Visit Reasons: ITDD Refill Intake Note: Pain today 05/09 Oleo Hasher And Renderer Required: No Ict Help Desk Technician: Ict Help Desk Technician Present Accompanied by: Self / Same As Patient Allergies codeine Allergy (Unknown, Verified 03/31/24 10:57) Unknown nabumetone Allergy (Unknown, Verified 03/31/24 10:57) unknown adhesive tape Allergy (Unknown, Uncoded 04/09/22 12:27) Unknown latex Allergy (Unknown, Uncoded 04/09/22 12:27) unknown pollen Allergy (Unknown, Uncoded 04/09/22 12:27) Unknown HPI Comments Details: Danielle is 62 years old very nice lady who is in my office for intrathecal pain pump refill. She reports that she starts to feel better with her pain. Her pain pump is located in the left abdomen. She is not on any oral opioid medications. She reports good efficient pain relief on the pain pump. Her pump is 40 cc. The pump refilled as below. I will schedule her appointment with me in 90 days for the next pump refill. It will be on 03/31/2024. Her pump needs to be replaced on or before May 2024. We will schedule her surgery in April of 2024 [facility] Medical History (Updated 12/06/21 @ 12:11 by Timi Wong MD) Presence of intrathecal pump Chronic pain syndrome Increased BMI Presence of intrathecal pump Back pain Hypothyroid GERD (gastroesophageal reflux disease) COPD (chronic obstructive pulmonary disease) Postlaminectomy syndrome Surgical History (Updated 03/05/20 @ 09:52 by Fina Reynolds RN) History of hip surgery History of hysterectomy Social History (Updated 03/05/20 @ 09:55 by Kori Rod MD) Cigarette Packs Per Day: 1.5 Cigarettes Per Day: 30.0 Review of Systems Const All systems reviewed & are unremarkable except as noted in HPI and below Physical Exam Vital Signs: Last Vital Signs Pulse 82 03/31/24 10:56 BP 156/74 H 03/31/24 10:56 BMI result Body Mass Index 33.6 Eyes General: appearance normal, both eyes and all related structures EOM: EOMs intact bilaterally Neck Neck: Yes full ROM Chest Chest palpation & inspection: normal inspection of the chest Resp Effort & Inspection: normal respiratory effort, able to speak in complete sentences, normal respiratory pattern, no audible wheezes and no cough Cardio Jugular venous distension: no JVD GI Inspection: Yes normal to inspection Back/Spine/Pelvis Back: No mass, No erythema and No warmth Assessment & Plan Assessment & Plan (1) Postlaminectomy syndrome: Code(s): M96.1 - Postlaminectomy syndrome, not elsewhere classified Category: Medical Plan: THE PATIENT CAME TODAY IN THE office FOR THE CHANGE OF THE MEDICATION IN her PAIN PUMP. The name and date of were verified and informed consent was obtained for the procedure. The pump was interrogated and the residual amount of fluid was found to be 7.3 mL. SHE WAS POSITIONED supine on the bed AND THE AREA OF THE INTRATHECAL PUMP WAS PREPPED WITH CHLORAPREP. The fenestrated drape was sterilely applied over the area of the pump. Sterile gloves were worn and of the aspiration system was assembled containing 2 in 22 gauge non-coring needle, the needle was connected to extension tubing which was connected to the 20 cc sterile syringe. The pain pump was palpated under the skin in the patient's left abdominal area. The needle was inserted through the skin and the central plug of the pain pump and fluid was aspirated. The clear fluid was going into the syringe the total amount of the fluid was 7.6 mL. After that a new batch of medication was obtained which was containing morphine 2 mg and bupivacaine 15 mg per mL. The admixture was made in two 20 cc syringes prepared by [facility] compounding pharmacy. The syringe was connected to the bacterial filter, and then connected to the extension tubing. After that the medication in the syringe was slowly instilled into the pump with aspirations at 35 , 25 and 10 and 5 cc sanchez. The programing of the pump left as it was before. Her next appointment is 03/31/2024. The next batch of the medication will remain the same and will contain morphine 2 mg and bupivacaine 15 milligrams/mL the patient receives continuous 0.7 mg of morphine with corresponding 5.258 mg of bupivacaine a day, she is also able to receive 0.0005 mg of morphine on demand with corresponding dose of bupivacaine twice a day. (2) Bilateral knee pain: Code(s): M25.561 - Pain in right knee; M25.562 - Pain in left knee Category: Medical Plan: Naloxone is prescribed for the potential respiratory depression on 10/01/2023 she filled it up that in 10/02/2023. Her pump is getting to the end of the life. We would need to replace the pump in April of 2024. We will schedule her for the procedure. - (3) Left knee pain: Code(s): M25.562 - Pain in left knee Category: Medical Plan: (4) Chronic pain syndrome: Code(s): G89.4 - Chronic pain syndrome Category: Medical Plan: Coding Level of Care Code Est Pt Level 3 (21863) Procedure Only Diagnoses Postlaminectomy syndrome M96.1 Bilateral knee pain M25.561; M25.562 Left knee pain M25.562 Chronic pain syndrome G89.4
[2024-03-31 10:56] VITALS: BP 156/74; PULSE 82; BMI 33.6
--- OUTSIDE RECORDS SUMMARY | 2024-03-31 14:25 | XMS_ITS | Encounter Summary ---
Author Organization [employer] Address [address] 7[address] [place] [address] Care Team Providers Care Storage Administrator Name Role Phone Suzy Delgado EVENT MARKETING COORDINATOR Primary Care Provider +1- [phone] Vane Das Unavailable Reason for Visit * Reason Comments Med Refill Encounter Details Date Type Department Care Team (Late st Contact Info) Description 03/30/2024 Refill [facility] [address] [place] [address] Armaan Garcia, [facility] [address] [place] [address] Other specified hypothyroidism Social History Tobacco Use Types Packs/Day Years Used Date Smoking Tobacco: Every Day Cigarettes 1 48 Smokeless Tobacco: Never Alcohol Use Standard Drinks/Week Comments Yes 0 (1 standard drink = 0.6 oz pure alcohol) 0 per week, 1 drink every few months Alcohol Answer Date Recorded How often do you have a drink containing alcohol ? 0 06/04/2023 How many drinks containing a lcohol do you have on a typical day when you are drinking? 0 06/04/2023 How often do you have six or more drinks on one occasion? 0 06/04/2023 Depression Answer Date Recorded Patient Health Questionnaire-9 Score 4 10/16/2023 Patient Health Questionnaire-9 Score 4 10/16/2023 Last PHQ-9: Questionnaire Data Not on file 0 10/16/2023 Housing Stability Answer Date Recorded What is your housing situation today? I have paresh mike 10/16/[address] you li ve. Do you have problems with any of the following? None of the above 10/16/2023 Food Insecurity Answer Date Recorded Within the past 12 months, y ou worried that your food would run out before you got money to buy more: Never True 10/16/2023 Within the past 12 months,th e food you bought just didn't last and you didn't have enough money to get more: Never True Transportation Answer Date Recorded In the past 12 months, has l ack of transportation kept you from medical appts, meetings, work or from getting things needed for daily living? No 10/16/2023 Intimate Partner Violence Answer Date R ecorded Within the last year, have y ou been afraid of your partner or ex-partner? 2 06/04/2023 Within the last year, have y ou been humiliated or emotionally abused in other ways by your partner or ex-partner? 2 Within the last year, have y ou been kicked, hit, slapped, or otherwise physically hurt by your partner or ex-partner? 2 06/04/2023 Within the last year, have y ou been raped or forced to have any kind of sexual activity by your partner or ex-partner? 2 06/04/2023 Utilities Answer Date Recorded In the past 12 months, has t he electric, gas, oil or water company threatened to shut off services in your home? No 10/16/2023 Depression Answer Date Recorded Patient Health Questionnaire-2 Score 2 10/16/2023 Internet Access Answer Date Recorded Internet Access Q1 Yes 10/30/2023 Internet Access Q2 Not on file 10/30/2023 Comments Unknown Sex and Gender Information Value Date Recorded Sex Assigned at Female 02/02/2022 8:46 AM EST Legal Sex Female 6:22 PM EDT Gender Identity Female 12/27/2021 6:22 PM EDT Sexual Orientation Straight 12/27/2021 6: 22 PM EDT Occupation Industry Job Start Date Job End Date Disabled since 1995 Not on file Not on file Not on f ile documented as of this encounter Miscellaneous Notes * Telephone Encounter - Kip Resendez [place] - 03/30/2024 11:54 AM EST Signed today documented in this encounter Plan of Treatment Not on file documented as of this encounter Visit Diagnoses Diagnosis Other specified hypothyroidism documented in this encounter Additional Health Concerns Assessment Noted Time PHQ-9 Depression Total Score: 4 10/16/19 24 9:49 AM EDT documented as of this encounter Care Teams Storage Administrator Relationship Specialty Start Date End Date Suzy Delgado FNP [address] [place] [address] PCP - General Family Medicine 08/22/22 Vane Das [address] [place] [address] [facility] 09/29/22 documented as of this encounter
--- OUTSIDE RECORDS SUMMARY | 2024-03-31 14:25 | XMS_ITS | Encounter Summary ---
Author Organization [employer] Address [address] 7t [place] [address] Care Team Providers Care Back Tacker Name Role Phone Suzy Delgado Primary Care Provider +1- [phone] Vane Das Unavailable Encounter Details Date Type Department Care Team (Late st Contact Info) Description 06/03/2023 Telephone [facility] [address] [place] [address] Suzy Delgado FNP [address] [place] [address] Social History Tobacco Use Types Packs/Day Years [...] more drinks on one occasion? 0 06/04/2023 Housing Stability Answer Date Recorded What is your housing situation today? I have paresh mike 12/11/[address] you li ve. Do you have problems with any of the following? Pests such as bugs, ants, or mice 12/11/2022 Food Insecurity Answer Date Recorded Within the past 12 months, y ou worried that your food would run out before you got money to buy more: Never True 12/16/2022 Within the past 12 months,th e food you bought just didn't last and you didn't have enough money to get more: Never True Transportation Answer Date Recorded In the past 12 months, has l ack of transportation kept you from medical appts, meetings, work or from getting things needed for daily living? No 12/16/2022 Intimate Partner Violence Answer Date R ecorded [...] the past 12 months, has t he [employer], gas, oil or water company threatened to shut off services in your home? No 12/16/2022 Depression Answer Date Recorded Patient Health Questionnaire-2 Score 2 06/20/2022 Comments Unknown Sex and Gender Information Value [...] encounter Miscellaneous Notes * Telephone Encounter - Nicola Lombardi - 06/08/2023 1:15 PM EDT Called pharmacy and PT. PT can afford the $5 inhalers and understands in order to get the other prescription a office visit is needed. * Telephone Encounter - KATHY Bolton - 06/05/2023 3:22 PM EDT I don't have any idea why the inhalers are expensive. Perhaps the pharmacy and suggest an alternative? About the praluent, I cannot recall discussing it with her. Why is she on that? Does she not tolerate statin drugs? A statin would likely be less expensive. * Telephone Encounter - Marino Snow - 06/03/2023 2:22 PM EDT Patient informs that her medications of fluticasone furoate (Arnuity Ellipta) 200 MCG/ACT inhaler alirocumab, (Praluent) 75 MG/ML injection, and ventolin are too expensive and she's having a hard time affording them. She'd like cheaper alternatives if possible documented in this encounter Plan of Treatment Not on file documented as of this encounter Visit Diagnoses Not on filedocumented in this encounter Care Teams Back Tacker Relationship Specialty Start Date End Date Suzy Delgado FNP [address] [place] [address] PCP - General Family Medicine 08/22/22 Vane Das [address] [place] [address] [facility] 09/29/22 documented as of this encounter
--- OUTSIDE RECORDS SUMMARY | 2024-03-31 14:25 | XMS_ITS | Encounter Summary ---
Author Organization [employer] Address [address] [place] [address] 7t [place] [address] Care Team Providers Care City Councilman Name Role Phone Suzy Delgado BOOTH OPERATOR Primary Care Provider +1- [phone] Vane Das Unavailable Encounter Details Date Type Department Care Team (Late st Contact Info) Description 10/23/2023 Refill [facility] [address] [place] [id number] Suzy Delgado [facility] [address] [place] [address] Social History Tobacco Use Types Packs/Day Years [...] encounter Miscellaneous Notes * Telephone Encounter - DIAZ Pisano - 10/30/2023 9:01 AM EDT chd * Telephone Encounter - Jenae Benton - 10/27/2023 8:21 AM EDT PCP: KATHY Bolton Last in-person office visit: 10/16/2023 KATHY Shelton Lab Results Component Value Date ALBUMIN 3.9 06/12/2023 ALT 19 06/12/2023 AST 11 06/12/2023 BUN 14 06/12/2023 CL 110 06/12/2023 CO2 26 06/12/2023 CREATININE 0.63 06/12/2023 EGFRCREATINI 92 06/20/2022 HDL 49 04/23/2022 HCT 43.4 06/20/2022 HGB 13.8 06/12/2023 LDL 135 04/23/2022 PLT 221 06/20/2022 K 4.2 06/12/2023 NA 142 06/12/2023 TRIG 104 10/07/2023 TSH 0.03 (L) 10/07/2023 WBC 6.6 06/12/2023 No future appointments. Comments: * Telephone Encounter - Sara Yuan - 10/23/2023 10:53 AM EDT Placed in accordion folder for pharmacy picking tech * Telephone Encounter - Sebas Watkins - 10/23/2023 8:42 AM EDT Patient will be coming in today to pharmacy picking tech her knee xray order. documented in this encounter Plan of Treatment Not on file documented as of this encounter Visit Diagnoses Not on filedocumented in this encounter Additional Health Concerns Assessment Noted Time PHQ-9 Depression Total Score: 4 10/16/19 24 9:49 AM EDT documented as of this encounter Care Teams City Councilman Relationship Specialty Start Date End Date Suzy Delgado FNP [address] [place] [address] PCP - General Family Medicine 08/22/22 Vane Das [address] [place] [address] [facility] 09/29/22 documented as of this encounter
--- OUTSIDE RECORDS SUMMARY | 2024-03-31 14:25 | XMS_ITS | Clinical Summary ---
Author Organization [facility] Address [address] [place] [address] Care Team Providers Care Tools Programmer Name Role Phone Lucien Costa MD Primary Care Provider Social History Tobacco Use Types Packs/Day Years Used Date Smoking Tobacco: Never Assessed Sex and Gender Information Value Date Recorded Sex Assigned at Not on file Gender Identity Not on file Sexual Orientation Not on file Plan of Treatment Health Maintenance Due Date Last Done Comments Breast Cancer Screening 1960 DTaP,Tdap,and Td Vaccines (1 - Tdap) 1977 Zoster Vaccines (1 of 2) 01/22/2008 Pneumococcal Vaccine: 65+ Ye ars (1 of 1 - PCV) 2023 COVID-19 Vaccine (1 - 2023-2 5 season) 2023 Influenza Vaccine (#1) 2023 RSV Immunization Patients 60 + Years Old (1 - 1-dose 75+ series) 2033 HIB Vaccines Aged Out No longer eligi ble based on patient's age to complete this topic HPV Vaccines Aged Out No longer eligi ble based on patient's age to complete this topic Hepatitis A Vaccines Aged Out No long er eligible based on patient's age to complete this topic Hepatitis B Vaccines Aged Out No long er eligible based on patient's age to complete this topic IPV Vaccines Aged Out No longer eligi ble based on patient's age to complete this topic MMR Vaccines Aged Out No longer eligi ble based on patient's age to complete this topic Meningococcal ACWY Vaccine Aged Out N o longer eligible based on patient's age to complete this topic RSV Immunization Patients Un adriana 20 months Aged Out No longer eligible b ased on patient's age to complete this topic Varicella Vaccines Aged Out No longer eligible based on patient's age to complete this topic Care Teams Tools Programmer Relationship Specialty Start Date End Date Lucien Costa MD [address] [place] [address] PCP - General Family Medicine 07/07/17
--- OUTSIDE RECORDS SUMMARY | 2024-03-31 14:25 | XMS_ITS | Encounter Summary ---
Author Organization [employer] Address [address] [place] [address] Care Team Providers Care Sprinkler Driver Name Role Phone Suzy Delgado Primary Care Provider +1- [phone] Vane Das Unavailable Encounter Details Date Type Department Care Team (Late st Contact Info) Description 03/30/[address] [place] [address] Suzy Delgado FNP [address] [place] [address] Social History Tobacco Use Types Packs/Day Years [...] encounter Miscellaneous Notes * Telephone Encounter - Shanelle Townsend - 03/30/2024 10:56 AM EST Patient is calling to have some lab work ordered to check her thyroid. Please advise when the orders have been put In. Call back # [phone] documented in this encounter Plan of Treatment Not on file documented as of this encounter Visit Diagnoses Not on filedocumented in this encounter Additional Health Concerns Assessment Noted Time PHQ-9 Depression Total Score: 4 10/16/19 24 9:49 AM EDT documented as of this encounter Care Teams Sprinkler Driver Relationship Specialty Start Date End Date Suzy Delgado FNP [address] [place] [address] PCP - General Family Medicine 08/22/22 Vane Das [address] [place] [address] [facility] 09/29/22 documented as of this encounter
--- OUTSIDE RECORDS SUMMARY | 2024-03-31 14:25 | XMS_ITS | Encounter Summary ---
Author Organization [facility] Address [address] [place] [address] 7t [place] [address] Care Team Providers Care Manager Medicaid Name Role Phone Lenora Cabrera Primary Care Provider Unavailab Lenora Cardenas Unavailable Unavailable Suzy Delgado Primary Care Provider +3- [phone] Vane Das Unavailable Vane Das Unavailable Encounter Details Date Type Department Care Team (Late st Contact Info) Description 01/20/2022 Abstract [facility] [address] [place] [id number] Lenora Cabrera FNP Social History Tobacco Use Types Packs/Day Years Used Date Smoking Tobacco: Never Assessed Comments Unknown Sex and Gender Information Value Date Recorded Sex Assigned at Female 02/02/2022 8:46 AM EST Legal Sex Female 6:22 PM EDT Gender Identity Female 12/27/2021 6:22 PM EDT Sexual Orientation Straight 12/27/2021 6: 22 PM EDT documented as of this encounter Plan of Treatment Not on file documented as of this encounter Visit Diagnoses Not on filedocumented in this encounter Care Teams Manager Medicaid Relationship Specialty Start Date End Date Lenora Cabrera FNP PCP - General Family Medicine 12/27/21 08/21/22 Suzy Delgado FNP [address] [place] [address] PCP - General Family Medicine 08/22/22 Leonra Cabrera FNP Family Medicine 12/27/21 09/14/22 Vane Das [address] [place] [address] 09/15/22 03/04/23 Vane Das [address] [place] [address] [facility] 09/29/22 documented as of this encounter
--- OUTSIDE RECORDS SUMMARY | 2024-03-31 14:25 | XMS_ITS | Continuity of Care Document ---
Author Organization [facility] Address [address] [place] [address] Phone Care Team Providers Care Cost Engineer Name Role Phone MARCIO MALHOTRA, KADIE Unavailable Unavaila ble Advance Directives Directive Yes / No Effective Date File Name No Information Encounters Encounter Description Practice Location Reason(s) For Visit Diagnoses Date Provider Providers Copied on Encounter [facility], [address] [place] [address] [address], [place], [place], [id number], tel:[phone] [facility] No Information 0 0 MARCIO ROME. [address], [address], [place], [place], [id number] . tel: [phone] Family History Family Member Type Diagnosis Age At Onset No Information Payers Payer name Insurance type Covered alliance party ID Authoriza tion(s) No Information Social [...]
--- OUTSIDE RECORDS SUMMARY | 2024-03-31 14:25 | XMS_ITS | Encounter Summary ---
Author Organization [employer] Address [address] 7t [place] [address] Care Team Providers Care Clothing Cutter Name Role Phone Sandy Suzy COMMERCIAL ACCOUNT EXECUTIVE Primary Care Provider +1- [phone] Vane Das Unavailable Encounter Details Date Type Department Care Team ([facility] st Contact Info) Description 04/15/2023 Abstract [facility] [address] [place] [phone] Suzy Delgado COMMERCIAL ACCOUNT EXECUTIVE [address] [place], [place] [id number] Social History Tobacco Use Types Packs/Day Years Used Date Smoking Tobacco: Every Day Cigarettes 1 48 Smokeless Tobacco: Never Alcohol Use Standard Drinks/Week Comments Yes 0 (1 standard drink = 0.6 oz pure alcohol) 0 per week, 1 drink every few months Housing Stability Answer Date Recorded What is [...] things needed for daily living? No 12/16/2022 Utilities Answer Date Recorded In the past [...] f ile documented as of this encounter Plan of Treatment Not on file documented as of this encounter Visit Diagnoses Not on filedocumented in this encounter Care Teams Clothing Cutter Relationship Specialty Start Date End Date Suzy Delgado FNP [address] [place] [address] PCP - General Family Medicine 08/22/22 Vane Das [address] [place] [address] [facility] 09/29/22 documented as of this encounter
--- OUTSIDE RECORDS SUMMARY | 2024-03-31 14:25 | XMS_ITS | Encounter Summary ---
Author Organization [employer] Address [address] [facility] [address] 7t [place] [address] Care Team Providers Care It Security Administrator Name Role Phone Suzy Delgado BB SHOT PACKER Primary Care Provider +1- [phone] Vane Das Unavailable Encounter Details Date Type Department Care Team ([facility] st Contact Info) Description 09/23/2023 Telephone [facility] [address] [place] [address] Suzy Delgado [facility] [address] [place], [place] [id number] Social History Tobacco Use Types Packs/Day Years [...] the past 12 months, has t he [employer], gas, oil or water company threatened to [...] encounter Miscellaneous Notes * Telephone Encounter - Enriqueta Zhang - 09/24/2023 8:38 AM EDT Returning a call from nursing. She thinks it is just a rash and it will have to run its course. * Telephone Encounter - Teresa Jack - 09/23/2023 11:16 AM EDT Symptoms: Red bumps, painful, they did break open but now crusting over. Are you in pain: Yes How long has this been happening: Awhile Location of pain: Right Elbow and Head Chronic or Acute: Chronic Were you discharged from a hospital for this issue: No When: Which Hospital: Accident Related: No Workers Comp / Auto: No Insurance: Name: Address: Perioperative Manager's Name: Date of Injury: Phone Number: Fax Number: Claim Number Additional Comments: Patient thinks they have shingles. No HX of shingles. Has not tried OTC medications. documented in this encounter Plan of Treatment Not on file documented as of this encounter Visit Diagnoses Not on filedocumented in this encounter Care Teams It Security Administrator Relationship Specialty Start Date End Date Suzy Delgado FNP [address] [place] [address] PCP - General Family Medicine 08/22/22 Vane Das [address] [place] [address] [facility] 09/29/22 documented as of this encounter
--- OUTSIDE RECORDS SUMMARY | 2024-03-31 14:25 | XMS_ITS | Encounter Summary ---
Author Organization [employer] Address [address] [place] [address] 7[address] [place] [address] Care Team Providers Care Seed Cleaner Name Role Phone Suzy Delgado INSULATION BLOWER Primary Care Provider +1- [phone] Vane Das Unavailable Encounter Details Date Type Department Care Team (Late st Contact Info) Description 03/30/2024 Refill [facility] [address] [place] [phone] Suzy Delgado [facility] [address] [place] [address] Tobacco use disorder Social History Tobacco Use Types Packs/Day Years [...] encounter Miscellaneous Notes * Telephone Encounter - Sara Yuan - 03/30/2024 4:00 PM EST PCP: KATHY Bolton Last in-person office visit: 10/16/2023 K[facility]Y [facility] Results Component Value Date BUN 15 03/28/2024 CREATININE 0.88 03/28/2024 EGFRCREATINI 92 06/20/2022 K 4.2 03/28/2024 TSH 0.03 (L) 10/07/2023 Assessment: [] Protocol passed [] Lab due [] Appointment due Plan: [] Please refill for days [] Lab [] BMP [] TSH [] A1C [] Appointment due: No future appointments. Comments: also requesting nicotine gum * Telephone Encounter - Chio Fang - 03/30/2024 11:35 AM EST Prescribing Provider: KATHY Bolton Medication Name: Nicotine Mini 2 MG lozenge [[id number]] 5 Days or More Supply: Yes Pharmacy: [id number] [place], [place] - [address] [facility] ([address]) & [address] [address] Patient states that she is out of these lozenges and is also requesting a script for nicotine gum as well documented in this encounter Plan of Treatment Not on file documented as of this encounter Visit Diagnoses Diagnosis Tobacco use disorder documented in this encounter Additional Health Concerns Assessment Noted Time PHQ-9 Depression Total Score: 4 10/16/19 24 9:49 AM EDT documented as of this encounter Care Teams Seed Cleaner Relationship Specialty Start Date End Date Suzy Delgado FNP [address] [place] [address] PCP - General Family Medicine 08/22/22 Vane Das [address] [place] [address] [facility] 09/29/22 documented as of this encounter
--- OUTSIDE RECORDS SUMMARY | 2024-03-31 14:25 | XMS_ITS | Encounter Summary ---
Author Organization [employer] Address [address] [facility] [address] [place] [address] Care Team Providers Care Senior Construction Manager Name Role Phone Suzy Delgado [facility] Primary Care Provider +1- [phone] Vane Das Unavailable Encounter Details Date Type Department Care Team ([facility] st Contact Info) Description 10/01/2023 Telephone [facility] [address] [place] [address] Suzy Delgado [facility] [address] [place], [place] [phone] Social History Tobacco Use Types Packs/Day Years [...] the past 12 months, has t he Occasion, gas, oil or water company threatened to [...] encounter Miscellaneous Notes * Telephone Encounter - Teresa Santiago - 10/01/2023 4:46 PM EDT Verified Insurance: Yes Referral Office: [facility] pulmonology Diagnosis Code: ICD code R06.02 Number of Visits Needed:8 NPI# of Facility: NPI# of Provider being referred to:[id number] Phone #:[phone] Fax #: [phone] Office lvm on our machine this is the only info they provided documented in this encounter Plan of Treatment Not on file documented as of this encounter Visit Diagnoses Not on filedocumented in this encounter Care Teams Senior Construction Manager Relationship Specialty Start Date End Date Suzy Delgado FNP [address] [place] [address] PCP - General Family Medicine 08/22/22 Vane Das [address] [place] [address] [facility] 09/29/22 documented as of this encounter
--- OUTSIDE RECORDS SUMMARY | 2024-03-31 14:25 | XMS_ITS | Encounter Summary ---
Author Organization [employer] Address [address] [place] [address] 7t [place] [address] Care Team Providers Care Organic Gardening Teacher Name Role Phone Suzy Delgado KATHY Primary Care Provider +1- [phone] Vane Das Unavailable Encounter Details Date Type Department Care Team (Late st Contact Info) Description 03/31/2024 Orders Only [address] [id number] Omar Ching MD [address] [place], [place] [phone] Acute cystitis without hematuria (Primary Dx) Social History Tobacco Use Types Packs/Day Years [...] as of this encounter Visit Diagnoses Diagnosis Acute cystitis without hematuria- Primary documented in this encounter Additional Health Concerns Assessment Noted Time PHQ-9 Depression Total Score: 4 10/16/19 24 9:49 AM EDT documented as of this encounter Care Teams Organic Gardening Teacher Relationship Specialty Start Date End Date Suzy Delgado FNP [address] [place] [address] PCP - General Family Medicine 08/22/22 Vane Das [address] [place] [address] [facility] 09/29/22 documented as of this encounter
--- OUTSIDE RECORDS SUMMARY | 2024-03-31 14:25 | XMS_ITS | Encounter Summary ---
Author Organization [employer] Address [address] [place] [address] Care Team Providers Care Safety Professional Name Role Phone Suzy Delgado KATHY Primary Care Provider +1- [phone] Vane Das Unavailable Encounter Details Date Type Department Care Team (Late st Contact Info) Description 09/17/2023 Orders Only [facility] [address] [place] [address] Provider, Not In System Social History Tobacco Use Types Packs/Day Years [...] on file documented as of this encounter Procedures Procedure Name Priority Date/Time Associated Diagnosis Comments COLONOSCOPY Routine 09/17/2023 2:17 PM EDT documented in this encounter Results * Colonoscopy (09/17/2023 2:17 PM EDT) us Not In System Provider [facility] Result - Final documented in this encounter Visit Diagnoses Not on filedocumented in this encounter Care Teams Safety Professional Relationship Specialty Start Date End Date Suzy Delgado FNP [address] [place] [address] PCP - General Family Medicine 08/22/22 Vane Das [address] [place] [address] [facility] 09/29/22 documented as of this encounter
--- OUTSIDE RECORDS SUMMARY | 2024-03-31 14:25 | XMS_ITS | Encounter Summary ---
Author Organization [employer] Address [address] [facility] [address] 7[address] [place] [address] Care Team Providers Care Director Of Mechanical Engineering Name Role Phone Suzy Delgado KATHY Primary Care Provider +1- [phone] Vane Das Unavailable Encounter Details Date Type Department Care Team (Late st Contact Info) Description 09/21/2023 Orders Only [facility] [address] [place] [address] Provider, Not In System Social [...] Procedure Name Priority Date/Time Associated Diagnosis Comments SURGICAL PATHOLOGY Routine 09/17/2023 1:54 PM EDT documented in this encounter Results * Surgical Pathology (09/17/2023 1:54 PM EDT) us Not In System Provider LAB PATHOLOGY ORDERABLES Edited Result - Final documented in this encounter Visit Diagnoses Not on filedocumented in this encounter Care Teams Director Of Mechanical Engineering Relationship Specialty Start Date End Date Suzy Delgado FNP [address] [place] [address] PCP - General Family Medicine 08/22/22 Vane Das [address] [place] [address] [facility] 09/29/22 documented as of this encounter
--- OUTSIDE RECORDS SUMMARY | 2024-03-31 14:25 | XMS_ITS | Encounter Summary ---
Author Organization [employer] Address [address] [place] [address] Care Team Providers Care Acoustic Intelligence Specialist Name Role Phone Suzy Delgado Primary Care Provider +1- [phone] Vane Das Unavailable Encounter Details Date Type Department Care Team (Late st Contact Info) Description 03/30/2024 Refill [facility] [address] [facility] [address] [place] [address] Suzy Delgado FNP [address] [place] [address] Other specified hypothyroidism Social History Tobacco Use [...] Telephone Encounter - Shanelle Townsend - 03/30/2024 10:58 AM EST Prescribing Provider: Nahum Rosales Medication Name: levothyroxine (Synthroid, Levoxyl) tablet Dosage: 150 MCG 5 Days or More Supply: No, patient ran out over a week ago. Pharmacy: [facility] #[id number] - [place], [place] - [address] [facility] ([address]) & [address] [address] documented in this encounter Plan of Treatment Not on file documented as of this encounter Visit Diagnoses Diagnosis Other specified hypothyroidism documented in this encounter Additional Health Concerns Assessment Noted Time PHQ-9 Depression Total Score: 4 10/16/19 24 9:49 AM EDT documented as of this encounter Care Teams Acoustic Intelligence Specialist Relationship Specialty Start Date End Date Suzy Delgado FNP [address] [place] [address] PCP - General Family Medicine 08/22/22 Vane Das [address] [place] [address] [facility] 09/29/22 documented as of this encounter
--- OUTSIDE RECORDS SUMMARY | 2024-03-31 14:25 | XMS_ITS | Encounter Summary ---
Author Organization [employer] Address [address] [facility] 7t [place] [address] Care Team Providers Care Labor Conciliator Name Role Phone Suzy Delgado PLATING ENGINEER Primary Care Provider +1- [phone] Vane Das Unavailable Encounter Details Date Type Department Care Team ([facility] st Contact Info) Description 06/05/2023 Telephone [facility] [address] [place] [address] Suzy Delgado [facility] [address] [place], [place] [phone] Social History Tobacco Use Types Packs/Day Years [...] the past 12 months, has t he Repeatit, gas, oil or water company threatened to [...] encounter Miscellaneous Notes * Telephone Encounter - Chio Mccollum - 06/08/2023 1:14 PM EDT PA DENIED. FORWARDED DENIAL TO PROVIDER Patient Name: Danielle Starkey Patient : [id number] Status of Request: Deny Medication Name: Praluent Inj 75mg/Ml GPI/NDC: [id number] Decision Notes: PRALUENT INJ 75MG/ML is denied for not meeting the prior authorization requirement(s). Medication authorization requires the following: One of the following: (A) You have been receiving at least 12 weeks of one maximally tolerated statin therapy and will continue to receive a statin at maximally tolerated dose. (B) You are unable to tolerate statin therapy as evidenced by one of the following intolerable and persistent (in other words: more than 2 weeks) symptoms: (I) Myalgia (muscle symptoms without creatine kinase elevations). (II) Myositis (muscle symptoms with creatine kinase elevations less than 10 times upper limit of normal). (C) You have a labeled contraindication to all statins. (D) You have experienced rhabdomyolysis or muscle symptoms with statin treatment with creatine kinase elevations greater than 10 times upper limit of normal on one statin therapy * Telephone Encounter - Kira Solis - 06/05/2023 2:44 PM EDT Pt is returning a call to chio * Telephone Encounter - Chio Mccollum - 06/05/2023 10:01 AM EDT PA has been submitted awaiting response from insurance * Telephone Encounter - Sherrie Martin - 06/05/2023 9:28 AM EDT Pharmacy states alirocumab (Praluent) 75 MG/ML injection [[id number]] Requires Prior-Auth documented in this encounter Plan of Treatment Not on file documented as of this encounter Visit Diagnoses Not on filedocumented in this encounter Care Teams Labor Conciliator Relationship Specialty Start Date End Date Suzy Delgado FNP [address] [place] [address] PCP - General Family Medicine 08/22/22 Vane Das [address] [place] [address] [facility] 09/29/22 documented as of this encounter
--- OUTSIDE RECORDS SUMMARY | 2024-03-31 14:25 | XMS_ITS | Clinical Summary ---
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 Cologuard and colonoscopy. (Tatianna Ochoa al, N Engl J Med 2014;370(14):7330-5901.) Cologuard may produce a false negative or false positive result (no colorectal cancer or precancerous polyp present at colonoscopy follow up). A negative Cologuard test result does not guarantee the absence of CRC or advanced adenoma (pre-cancer). The current Cologuard screening interval is every 3 years. ([place] Cancer Society and U.S. Multi-Society Task Force). Cologuard performance data in a 10,000 patient pivotal study using colonoscopy as the reference method can be accessed at the following location: www.MeetingSprout/results. Additional description of the Cologuard test process, warnings and precautions can be found at www.Sentrigo.com. Stool specimen (specimen) Rectal contents / Unknown 06/01/2023 9:00 AM EDT 06/02/2023 10:52 AM EDT [facility] LAB MOLECULAR DIAGNOSTICS ORDERABLES Final Result Performing Organization Address [facility] Co de Phone Number [employer] (CLIA #:[id number]) [place] [address], * Hepatitis C Antibody with Reflex to HCV RNA,PCR w/Reflex to Genotype, LiPA (04/01/2023 11:58 AM EST) Hepatitis C Antibody NON-REACT IRON NON-REACT IRON [employer] Comment: HCV antibody was non-reactive. There is no laboratory evidence of HCV infection. In most cases, no further action is required. However, if recent HCV exposure is suspected, a test for HCV RNA (test code 59433) is suggested. For additional information, please refer to http://education.Njuice/faq/JGJ314 (This link is being provided for informational/ educational purposes only.) 04/01/2023 11:5 8 AM EST 04/01/2023 12:03 PM EST [facility] LAB BLOOD ORDERABLES Final Result Performing Organization Address [facility] de Phone Number [facility] [address], [place] [address] [facility] [address] [place] [address] * CT Low Dose Screening (11/04/2022 9:06 AM EDT) Anatomical Region Laterality Modality Chest Computed Tomogra phy 11/04/2022 9:06 AM EDT Narrative 11/04/2022 10:[address] Chest LDCT Lung Program Reason: Other:; LDCT LUNG CANCER SCREENING PROGRAM, CURRENT SMOKER, 62 PK YR HX; Clinical Question(s): Other:; Special Instructions: BOOK AT [address] [place] [address] ??BOOK AFTER 10 08 2022 ??NO CHEST CT IN THE LAST 12 MONTHS ??NO LUNG CA OR SIGNS AND SYMPTOMS OF LUNG CA Visit type: Annual screening TECHNIQUE: Low-dose helical CT of the chest without IV contrast (Adult Lung Cancer Screening) protocol was performed. Coronal reformats were obtained. Weight-based protocol using automatic tube modulation was used to optimize exposure parameters. CTDIvol Body: 1.30 mGy, ??DLP Body: 52 mGy*cm. COMPARISON: CT chest LDCT 10/08/2021. FINDINGS: LUNG NODULES (measured on thin axial series 206): RIGHT lung: Scattered calcified granulomas. Stable 4 mm posterior right upper lobe nodule, unchanged, image 50. LEFT lung: Stable 4 mm lingular nodule, image 194, unchanged. OTHER FINDINGS: Research Program Internship view findings, lines and tubes: None. Trachea and airways: Patent without evidence of tracheal or endobronchial lesion. Lungs and pleura: Mild atelectasis at the lung bases, right middle lobe, and lingula. No effusion or pneumothorax. Mediastinum and cheikh: No mass or hematoma. Prominent mediastinal lymphadenopathy, similar to prior. No esophageal abnormality. Heart: Heart is normal in size. No pericardial effusion. Aorta: No aortic aneurysm. Pulmonary arteries: Normal caliber. Chest wall soft tissues: No acute abnormality. Diaphragm: Intact. Upper abdomen: No significant change in a 2.5 cm left adrenal adenoma. Bones: No acute abnormality. IMPRESSION: 1. LungRad Category: 2 Benign Appearance or Behavior. Nodules with a very low likelihood of becoming a clinically active cancer due to size or lack of growth. Continue annual screening with LDCT in 12 months. 2. Chronic findings as described above. Categorization based on Lung-RADS 2022 criteria. [email or web address] WSN: [id number] Ordering Physician: Lenora Cabrera Dictated By: ?Mayuri Guerrero MD Dictated Date/Time: ?11/04/22 10:34 a Reviewed By: ?Mayuri Guerrero MD Signed By: ? Mayuri Guerrero MD Signed Date/Time: ? 11/04/22 10:34 am Transcribed By: ? CSB Transcribed Date/Time: ?11/04/22 10:18 am Procedure Note Donotuseinterpreter, Image - 11/04/2022 CT Chest LDCT Lung Program Reason: Other:; LDCT LUNG CANCER SCREENING PROGRAM, CURRENT SMOKER, 62 PKYR HX; Clinical Question(s): Other:; Special Instructions: BOOK AT [address] [place] [address]., [place] BOOK AFTER [address] IN THE LAST 12 MONTHSNO LUNG CA OR SIGNS AND SYMPTOMS OF LUNG CA Visit type: Annual screening TECHNIQUE: Low-dose helical CT of the chest without IV contrast (Adultng Cancer Screening) protocol was performed. Coronal reformats wereobtained. Weight-based protocol using automatic tube modulation was used tooptimize exposure parameters. CTDIvol Body: 1.30 mGy, DLP Body: 52 mGy*cm. COMPARISON: CT chest LDCT 10/08/2021. FINDINGS: LUNG NODULES (measured on thin axial series 206): RIGHT lung: Scattered calcified granulomas. Stable 4 mm posterior right upper lobe nodule, unchanged, image 50. LEFT lung: Stable 4 mm lingular nodule, image 194, unchanged. OTHER FINDINGS: Research Program Internship view findings, lines and tubes: None. Trachea and airways: Patent without evidence of tracheal orendobronchial lesion. Lungs and pleura: Mild atelectasis at the lung bases, right middle lobe,and lingula. No effusion or pneumothorax. Mediastinum and cheikh: No mass or hematoma. Prominent mediastinal lymphadenopathy, similar to prior. No esophageal abnormality. Heart: Heart is normal in size. No pericardial effusion. Aorta: No aortic aneurysm. Pulmonary arteries: Normal caliber. Chest wall soft tissues: No acute abnormality. Diaphragm: Intact. Upper abdomen: No significant change in a 2.5 cm left adrenal adenoma. Bones: No acute abnormality. IMPRESSION: 1. LungRad Category: 2 Benign Appearance or Behavior. Nodules with a very low likelihood ofbecoming a clinically active cancer due to size or lack of growth. Continue annual screening with LDCT in 12 months. 2. Chronic findings as described above. Categorization based on Lung-RADS 2022 criteria. [email or web address] WSN: [id number] Ordering Physician: Lenora Cabrera Dictated By: Mayuri Guerrero MD Dictated Date/Time: 11/04/22 10:34 a Reviewed By: Mayuri Guerrero MD Signed By: Mayuri Guerrero MD Signed Date/Time: 11/04/22 10:34 am Transcribed By: MIGNON Transcribed Date/Time: 11/04/22 10:18 am Lenora ATWOODP IMG CT PROCEDURES Final Result from Last 3 Months or Most Recently Relevant to Health Maintenance Insurance [facility] MEDICARE [facility] MEDICARE ADVANTAGE HMO * Guarantor: Danielle Starkey Account Type Relation to Patient Date of Phone Billing Address Dental Self Care Teams Director Of Pediatric Rehabilitation Relationship Specialty Start Date End Date Suzy Delgado FNP [address] [place] [address] PCP - General Family Medicine 08/22/22 Vane Das [address] [place] [address] [facility] 09/29/22
--- OUTSIDE RECORDS SUMMARY | 2024-03-31 14:25 | XMS_ITS | Encounter Summary ---
Author Organization [employer] Address [address] [facility] [address] [place] [address] Care Team Providers Care Auto Service Instructor Name Role Phone Suzy Delgado [facility] Primary Care Provider [phone]- [phone] Vane Das Unavailable Encounter Details Date Type Department Care Team ([facility] st Contact Info) Description 10/09/[address] [facility] [address] [place] [address] Suzy Delgado [facility] [address] [place], [place] [id number] Social History Tobacco Use Types Packs/Day Years [...] the past 12 months, has t he [employer], gas, oil or water company threatened to [...] * Telephone Encounter - Enriqueta Zhang - 10/09/2023 8:16 AM EDT Returning a call from nursing regarding lab results. documented in this encounter Plan of Treatment Not on file documented as of this encounter Visit Diagnoses Not on filedocumented in this encounter Care Teams Auto Service Instructor Relationship Specialty Start Date End Date Suzy Delgado FNP [address] [place] [address] PCP - General Family Medicine 08/22/22 Vane Das [address] [place] [address] [facility] 09/29/22 documented as of this encounter
--- OUTSIDE RECORDS SUMMARY | 2024-03-31 14:25 | XMS_ITS | Encounter Summary ---
Author Organization [facility] [employer] Address [address] [facility] 7t [place] [address] Care Team Providers Care Apartment Maintenance Worker Name Role Phone Lenora Cabrera Primary Care Provider Unavailab Lenora Cardenas Unavailable Unavailable Suzy Delgado Primary Care Provider [phone]- [phone] Vane Das Unavailable Vane Das Unavailable Encounter Details Date Type Department Care Team (Late st Contact Info) Description 06/25/[address] [address] Lenora Cabrera FNP Social History Tobacco Use Types Packs/Day Years Used Date Smoking Tobacco: Every Day Cigarettes 1 48 Smokeless Tobacco: Never Depression Answer Date Recorded Patient Health Questionnaire-2 Score 2 06/20/2022 Comments Unknown Sex and Gender Information Value Date Recorded Sex Assigned at Female 02/02/2022 8:46 AM EST Legal Sex Female 6:22 PM EDT Gender Identity Female 12/27/2021 6:22 PM EDT Sexual Orientation Straight 12/27/2021 6: 22 PM EDT COVID-19 Exposure Response Date Recorded In the last 10 days, have yo u been in contact with someone who was confirmed or suspected to have Coronavirus/COVID-19? No / Unsure 06/20/2022 5:01 AM EDT documented as of this encounter Plan of Treatment Not on file documented as of this encounter Visit Diagnoses Not on filedocumented in this encounter Care Teams Apartment Maintenance Worker Relationship Specialty Start Date End Date Lenora Cabrera FNP PCP - General Family Medicine 12/27/21 08/21/22 Suzy Delgado FNP [address] [place] [address] PCP - General Family Medicine 08/22/22 Lenora Cabrera FNP Family Medicine 12/27/21 09/14/22 Vane Das [address] [place] [address] 09/15/22 03/04/23 Vane Das [address] [place] [address] [facility] 09/29/22 documented as of this encounter
== END 2024-03-31 11:33 | disposition home or self-care (01) ==
PROVIDERS: PCP Nurse Practitioner Family; Visit Provider Anesthesiology
DX: M96.1 Postlaminectomy syndrome, not elsewhere classified (principal); M25.561 Pain in right knee; M25.562 Pain in left knee; G89.4 Chronic pain syndrome; Z45.1 Encounter for adjustment and management of infusion pump
CPT/HCPCS: 95991; 99213

== ENCOUNTER → 2024-03-31 10:42 | Outpatient (BNVA) | payer MEDICARE, MEDICAID, SELFPAY | PROVIDERS: PCP Nurse Practitioner Family; Visit Provider Anesthesiology | DX: M96.1 Postlaminectomy syndrome, not elsewhere classified (principal); G89.4 Chronic pain syndrome; M25.561 Pain in right knee; M25.562 Pain in left knee; Z45.1 Encounter for adjustment and management of infusion pump; Z79.899 Other long term (current) drug therapy | CPT/HCPCS: 99212 ==

== ENCOUNTER 2024-05-27 05:46 | Day surgery (SDC) | payer MEDICARE, MEDICAID, SELFPAY ==
[2024-05-25 14:00] VITALS: BMI 33.6
[2024-05-27 06:13] VITALS: BMI 35.2
[2024-05-27 06:35] VITALS: BP 131/66; PULSE 83; RESP 16; TEMP 36.5; O2SAT 97
[2024-05-27] MEDS: Lactated Ringers 1,000 ML 50 ML IVCONT (06:44)
--- NOTE | 2024-05-27 07:28 | HO.ANESPROP2 ---
HPI - Anesthesia Eval Consult details Narrative: for PMFSH Active Problems Active Problems: All Active Problems Bilateral knee pain (Acute) Left knee pain (Acute) Presence of intrathecal pump (Acute) Chronic pain syndrome (Acute) Increased BMI (Acute) Postlaminectomy syndrome (Acute) Past Medical History Medical History (Updated 05/27/24 @ 06:18 by Fina Reynolds RN) Presence of intrathecal pump Sleep apnea Chronic pain syndrome Increased BMI Presence of intrathecal pump Back pain Hypothyroid GERD (gastroesophageal reflux disease) COPD (chronic obstructive pulmonary disease) Postlaminectomy syndrome Family History Family history of problems with anesthesia: No Surgical History Surgical History (Updated 03/05/20 @ 09:52 by Fina Reynolds RN) History of hip surgery History of hysterectomy History of Problems with Anesthesia: No (Slow awakening) Social History Social History (Updated 03/05/20 @ 09:55 by Kori Rod MD) Patient Tobacco Use Status: Current everyday Tobacco user Tobacco use type: Cigarette Cigarette Packs Per Day: 1 Cigarettes Per Day: 20.0 Use of substances other than those prescribed or required for medical reasons: No Are you DNR?: No Advance Directives: No Advance Directives Information Provided: Yes Advance Directives on File: No Recently lost weight without trying: No Nutrition Risks: No Nutritional Risk Patient : No Meds Allergies Allergy/AdvReac Type Severity Reaction Status Date / Time codeine Allergy Unknown Unknown Verified 03/31/24 10:57 nabumetone Allergy Unknown unknown Verified 03/31/24 10:57 adhesive tape Allergy Severe Rash Uncoded 05/27/24 06:19 latex Allergy Severe Rash Uncoded 05/27/24 06:19 pollen Allergy Unknown Unknown Uncoded 04/09/22 12:27 Active Medications: Current Medications Lactated Ringer's (Lr) 1,000 mls @ 50 mls/hr IVCONT .Q20H VIDA Last Admin: 05/27/24 06:44 Dose: 50 mls/hr Home Medications ?Medication ?Instructions ?Recorded ?Confirmed ?Last Taken ?Type fluticasone propionate 220 inhalation 03/05/20 04/09/22 05/27/24 History mcg/actuation HFA aerosol inhaler (Flovent HFA) lorazepam 0.5 mg tablet 2 tab PO BID PRN panic attack 03/05/20 05/25/24 Unknown History aripiprazole 5 mg tablet 5 mg PO DAILY 10/21/21 05/25/24 Unknown History duloxetine 60 mg capsule,delayed 60 mg PO DAILY 10/21/21 05/25/24 Unknown History release dextroamphetamine-amphetamine ER 1 cap PO QAM 10/01/23 Unknown History 20 mg 24hr capsule,extend release levothyroxine 175 mcg tablet 175 mcg PO DAILY 10/01/23 05/25/24 Unknown History alirocumab 75 mg/mL subcutaneous mg subcut 03/31/24 Unknown History pen injector (Praluent Pen) propranolol 20 mg tablet 20 mg PO BID 03/31/24 05/25/24 Unknown History Exam Height,Weight and Vital Signs: Height 5 ft 10 in Weight 111.2 kg Last Vital Signs Temp 97.7 F 05/27/24 06:35 Pulse 83 05/27/24 06:35 Resp 16 05/27/24 06:35 BP 131/66 05/27/24 06:35 Pulse Ox 97 05/27/24 06:35 O2 Del Method Room Air 05/27/24 06:35 Airway Mallampati Class: II TM Dist: >3cm Neck ROM: Full Denture: Upper and Lower Heart: ok Lungs: ok Assessment and Plan Assessment Anesthesia Assessment: Anesthesia Plan Discussed and Chart Reviewed Final Anesthetic Review Family History of Problems with Anesthesia: No History of Problems with Anesthesia: No (Slow awakening) NPO: Yes ASA Class: III Final Preanesthetic Review: No Changes in Pt Med Stat, Meds/Allgs Chart Reviewed, Consent Obtained/Reviewed and Anes Risks/Benef Reviewed Patient Risk: Intermediate Procedure Risk: Low Anesthetic Plan Anesthetic Plan: GA and Agree w/ Assess. and Plan Disposition: Standard PACU
--- NOTE | 2024-05-27 07:30 | MHC.SHP ---
Pre-Procedural Eval Section A - 24 Hr Update-Section A only Date of Service: 05/27/24 The patient is an INPATIENT: No Changes since office visit: Yes Patient answered all questions The patient has been examined within 24 hours of the surgical procedure. The History & Physical has been completed within 30 days and I have reviewed it.: No Section B - Complete if H&P > 30 days Chief Complaint: Postlaminectomy syndrome,chronic pain Details of Present Illness: as above Relevant Family History (Specify if Yes): No Relevant Social History: None Present Medications: see Short Stay Collaborative assessment Medical History: No relevant PMH History of Previous Operations: Relevant previous surgery/procedure and date(s) Allergies: Allergies Allergy/AdvReac Type Severity Reaction Status Date / Time codeine Allergy Unknown Unknown Verified 03/31/24 10:57 nabumetone Allergy Unknown unknown Verified 03/31/24 10:57 adhesive tape Allergy Severe Rash Uncoded 05/27/24 06:19 latex Allergy Severe Rash Uncoded 05/27/24 06:19 pollen Allergy Unknown Unknown Uncoded 04/09/22 12:27 Review of Systems Sugical H&P ROS: Negative: Cardiovascular, Respiratory, Neurological, Psychiatric, Hem-Onc, Allergic/Immunologic, Gastrointestinal, Genitourinary, Musculoskeletal, Integumentary, Endocrine and Eyes/Ears/Nose/Throat and Yes, Specify: Constitution (obesity) Exam Surgical H&P Exam: Normal: HEENT, Normal: Heart, Normal: Lungs, Normal: Extremities, Normal: Abdomen, Normal: Skin and Normal: Neurological Plan Diagnosis/Plan: Unchanged I have reviewed the history and physical and performed a pertinent physical examination on my patient. No changes have occurred unless specified. Time Spent With Patient Time: Total time managing care of this patient today __5__ minutes.
[2024-05-27] MEDS: ceFAZolin Sodium/Dextrose,Iso 2 GM/50 ML PIGGYBACK IV (07:42)
[2024-05-27 09:47] VITALS: BP 152/89; PULSE 79; RESP 16; TEMP 36.6; O2SAT 96
[2024-05-27 09:52] VITALS: BP 162/84; PULSE 81; RESP 16; O2SAT 97
--- NOTE | 2024-05-27 09:56 | P.BOP_ITS ---
Brief Operative Note Date of Service: 05/27/24 Pre-op diagnosis: Chronic pain syndrome presence of intrathecal pain pump, postlaminectomy syndrome chronic pain syndrome, end of life of intrathecal pain pump. Post-op diagnosis: same Procedure: Removal of old intrathecal pain pump [employer] and the implantation of the new intrathecal pain pump [employer] 40 cc. Implants: Intrathecal pain pump [employer] SynchroMed 3 as well as sutureless connector. Surgeon: Duc Slaughter MD Anesthesia: GLMA Was an Light Rail Signal Technician used for this Procedure?: No Estimated blood loss (mL): 18 Condition: stable Disposition: PACU
[2024-05-27 09:57] VITALS: BP 128/85; PULSE 77; RESP 16; O2SAT 95
[2024-05-27 10:02] VITALS: BP 138/87; PULSE 79; RESP 18; TEMP 36.6; O2SAT 100
--- NOTE | 2024-05-27 10:03 | P.OP_ITS ---
Operative Note Operative Note Date of Service: 05/27/24 Narrative: Removal of the old intrathecal pain pump and implantation of a new SynchroMed 340 mL intrathecal pain pump. The patient came to the operating room after explaining informed consent. Risks and benefits were explained as bleeding infection peripheral nerve damage spinal cord damage and headache. The patient was brought on the operating room and positioned in right lateral decubitus position on operating table. Citizen [place] Society of Anesthesiology monitors were applied and patient was induced with general anesthesia with LMA. After that time-out was performed delineating name and date of of the patient nature of the procedure allergies and need for antibiotic prophylaxis. Patient received 2 g of cefazolin preoperatively 20 minutes before the procedure. The area of the pain pump in the left side of the abdomen as well as left lateral flank as well as area of the implantation of the intrathecal catheter on the back of the patient's were prepped with ChloraPrep twice, the area was delineated with self adhesive utility towels and after that you drape was applied from caudad and cephalad directions 2 pieces. After that we applied and covered the entire field with Ioban film. After that attention was concentrated on the area of the pain pump implantation site. The injection of the local anesthetic was performed alongside the previous incision. After that 2 incisions 11 cm long were made parallel to each other on both sides of the incision. After that the incisions were widened and deepened and the scar was excised using electrocautery. Thorough hemostasis was performed using electrocautery. After that the capsule of the pump was incised and incision was extended anteriorly and posteriorly. Intrathecal pain pump was found in the pain pump pocket and anchoring sutures on all 4 bracket of the pain pump was severed using scalpel blade. After that the pain pump body was delivered on the operating field on the skin level. 25 gauge noncoring needle was obtained and inserted into the side port of the pump. I was able to aspirate almost 3/4of the milliliter of clear straw-colored CSF. Thorough hemostasis of the bottom of the pain pump pocket was obtained. The intrathecal catheter was dissected from the surrounding tissues and freed from adhesions. After that the sutureless connection device was severed from the intrathecal catheter. New suture-less connection device was brought over the operating field and it was connected to old intrathecal catheter. New system was connected to intrathecal pump. Again side port was cannulated using 25 gauge noncoring needle and again almost 1 cc of CSF was aspirated from the catheter. The wound was irrigated using normal saline with vancomycin. Anchoring sutures were applied to most superior posterior more superior anterior and most inferior anterior corners of the wound. The intrathecal catheter and sutureless connector were gathered behind the body of the pump. Anchoring sutures were connected to the appropriate bracket on the body of the pump. After that the pain pump was dislodged into the pump pocket the anchoring sutures were tied. At this time we last time obtained 1 cc of CSF from the side port of the pain pump. After that the wound was irrigated using normal saline with vancomycin again. After that 0 -0 Vicryl was used to close the wound. 2-0 Vicryl was used to approximate the level of the skin. After that williams were applied to the level of the skin. Bacitracin was applied to the suture line and sterile dressing using 4x4s and Tegaderm was applied to the level of the wound. After that patient was awakened extubated and transferred stable to PACU.
== END 2024-05-27 09:43 | disposition home or self-care (01) ==
PROVIDERS: PCP Nurse Practitioner Women's Health; Visit Provider Anesthesiology
PROC: (CPT 62362; principal; 2024-05-27 07:30)
DX: Z45.1 Encounter for adjustment and management of infusion pump (principal); M96.1 Postlaminectomy syndrome, not elsewhere classified; G89.4 Chronic pain syndrome; M54.9 Dorsalgia, unspecified; M25.562 Pain in left knee; M25.561 Pain in right knee; J44.9 Chronic obstructive pulmonary disease, unspecified; E03.9 Hypothyroidism, unspecified; Z91.040 Latex allergy status; L23.1 Allergic contact dermatitis due to adhesives; Z88.5 Allergy status to narcotic agent
CPT/HCPCS: 62362; C1755; C1772; J0690; J1100; J2003; J2250; J2405; J2704; J2795; J3010; J3370; Q9967

== ENCOUNTER → 2024-05-27 05:46 | Outpatient (BNV) | payer MEDICARE, MEDICAID, SELFPAY | PROVIDERS: PCP Nurse Practitioner Women's Health; Visit Provider Anesthesiology | DX: G89.4 Chronic pain syndrome (principal); Z45.1 Encounter for adjustment and management of infusion pump | CPT/HCPCS: 62362 ==

== ENCOUNTER 2024-06-02 10:15 | Outpatient (AMB) | payer MEDICARE, MEDICAID, SELFPAY ==
--- NOTE | 2024-06-02 10:18 | A.OFFVIS_ITS ---
Vital Signs 06/02/24 10:19 Height 5 ft 10 in Weight 240 lb BMI 34.4 BP 129/62 Blood Pressure Location Rt brachial Position Sitting Pulse 92 Pulse Source Pulse Oximeter Pulse Oximetry (%) 96 Oxygen Delivery Method Room Air Intake Visit Reasons: S/p ITDD Pain Pump Replacement 05/27/24 Allergies codeine Allergy (Unknown, Verified 06/02/24 10:20) Unknown nabumetone Allergy (Unknown, Verified 06/02/24 10:20) unknown adhesive tape Allergy (Severe, Uncoded 06/02/24 10:20) Rash latex Allergy (Severe, Uncoded 06/02/24 10:20) Rash pollen Allergy (Unknown, Uncoded 06/02/24 10:20) Unknown HPI Comments Details: Danielle is today in my office after replacement of the intrathecal pain pump. The wound was examined today after removal of the dressing. No redness no swelling no pathological discharge no tenderness on palpation. [address] are competent. Dry dressing was applied. The patient will be seen in the week for removal of the williams. She has already scheduled the next pump refill at this time we did not perform any adjustment of the pain pump doses. [facility] Medical History (Updated 05/27/24 @ 06:18 by Fina Reynolds RN) Presence of intrathecal pump Sleep apnea Chronic pain syndrome Increased BMI Presence of intrathecal pump Back pain Hypothyroid GERD (gastroesophageal reflux disease) COPD (chronic obstructive pulmonary disease) Postlaminectomy syndrome Surgical History (Updated 03/05/20 @ 09:52 by Fina Reynolds RN) History of hip surgery History of hysterectomy Social History (Updated 03/05/20 @ 09:55 by Kori Rod MD) Patient Tobacco Use Status: Current everyday Tobacco user Tobacco use type: Cigarette Cigarette Packs Per Day: 1 Cigarettes Per Day: 20.0 Review of Systems Const All systems reviewed & are unremarkable except as noted in HPI and below Physical Exam Vital Signs: Last Vital Signs Pulse 92 06/02/24 10:19 BP 129/62 06/02/24 10:19 Pulse Ox 96 06/02/24 10:19 Oxygen Delivery Method Room Air 06/02/24 10:19 BMI result Body Mass Index 34.4 Eyes General: appearance normal, both eyes and all related structures EOM: EOMs intact bilaterally Neck Neck: Yes full ROM Chest Chest palpation & inspection: normal inspection of the chest Resp Effort & Inspection: normal respiratory effort, able to speak in complete sentences, normal respiratory pattern, no audible wheezes and no cough Cardio Jugular venous distension: no JVD GI Inspection: Yes normal to inspection Back/Spine/Pelvis Back: No mass, No erythema and No warmth Assessment & Plan Assessment & Plan (1) Postlaminectomy syndrome: Code(s): M96.1 - Postlaminectomy syndrome, not elsewhere classified Category: Medical (2) Bilateral knee pain: Code(s): M25.561 - Pain in right knee; M25.562 - Pain in left knee Category: Medical Plan: The patient is doing very well after the removal of the old and insertion of the new SynchroMed 3 intrathecal pain pump to the old intrathecal catheter. The w ound is doing very well. No signs of infection or inflammation. The new pump refill will be scheduled accordingly. (3) Left knee pain: Code(s): M25.562 - Pain in left knee Category: Medical Plan: (4) Chronic pain syndrome: Code(s): G89.4 - Chronic pain syndrome Category: Medical Plan: Plan The pump refill will be scheduled on 06/30/2024. Coding Level of Care Code Est Pt Level 3 (66418) Diagnoses Postlaminectomy syndrome M96.1 Bilateral knee pain M25.561; M25.562 Left knee pain M25.562 Chronic pain syndrome G89.4
[2024-06-02 10:19] VITALS: BP 129/62; PULSE 92; O2SAT 96; BMI 34.4
--- OUTSIDE RECORDS SUMMARY | 2024-06-02 11:07 | XMS_ITS | Continuity of Care Document ---
Author Organization [facility] Address [address] [place] [address] Phone Care Team Providers Care Copy Messenger Name Role Phone MARCIO MALHOTRA, KADIE Unavailable Unavaila ble Advance Directives Directive Yes / No Effective Date File Name No Information Encounters Encounter Description Practice Location Reason(s) For Visit Diagnoses Date Provider Providers Copied on Encounter [facility], [address] [place] [address] [address], [place], [place], [id number], tel:[phone] No Information 0 0 MARCIO ROME. [address] [facility], [address], [place], [place], [id number] . tel:[phone] Family History Family Member Type Diagnosis Age At Onset No Information Payers Payer name Insurance type Covered constitution party ID Authoriza tion(s) No Information Social [...]
--- OUTSIDE RECORDS SUMMARY | 2024-06-02 11:07 | XMS_ITS | Encounter Summary ---
Author Organization [facility] [employer] Address [address] 7t [place] [address] Care Team Providers Care Floral Design Teacher Name Role Phone Lenora Cabrera Primary Care Provider Unavailab Lenora Cardenas Unavailable Unavailable Suzy Delgado Primary Care Provider +1- [phone] Vane Das Unavailable Vane Das Unavailable Encounter Details Date Type Department Care Team (Late st Contact Info) Description 06/25/[address] [id number] Lenora Cabrera FNP Social History Tobacco Use [...] Female 12/27/2021 6:22 PM EDT Sexual Orientation Choose not to disclose 2024 9:45 AM EST COVID-19 Exposure Response Date Recorded In the last 10 days, have yo u been in contact with someone who was confirmed or suspected to have Coronavirus/COVID-19? No / Unsure 06/20/2022 5:01 AM EDT documented as of this encounter Plan of Treatment Not on file documented as of this encounter Visit Diagnoses Not on filedocumented in this encounter Care Teams Floral Design Teacher Relationship Specialty Start Date End Date Lenora Cabrera FNP PCP - General Family Medicine 10/28/22 6/22/23 Suzy Delgado FNP [address] [place] [address] PCP - General Family Medicine 08/22/22 Lenora Cabrera FNP Family Medicine 12/27/21 09/14/22 Vane Das 102 [place] [address] 09/15/22 03/04/23 Vane Das [address] [place] [address] [facility] 09/29/22 documented as of this encounter
--- OUTSIDE RECORDS SUMMARY | 2024-06-02 11:07 | XMS_ITS | Encounter Summary ---
Author Organization [employer] Address [address] [facility] [address] [facility] 7t [place] [address] Care Team Providers Care Synthetic Staple Extruder Name Role Phone Suzy Delgado FINANCIAL SALES CONSULTANT Primary Care Provider +1- [phone] Vane Das Unavailable Encounter Details Date Type Department Care Team ([facility] st Contact Info) Description 06/05/2023 Telephone [facility] [address] [place] [address] Suzy Delgado [facility] [address] [place], [place] [phone] Social History Tobacco Use Types Packs/Day Years [...] the past 12 months, has t he [employer], gas, oil or water company threatened to [...] not to disclose 2024 9:45 AM EST Occupation Industry Job Start Date Job End Date Disabled since 1995 Not on file Not on file Not on f ile documented as of this encounter Miscellaneous Notes * Telephone Encounter - Chioyasmany Oliveiraard - 06/08/2023 1:14 PM EDT PA DENIED. FORWARDED DENIAL TO PROVIDER Patient Name: Danielle Starkey Patient : [id number] Status of Request: Deny Medication Name: Praluent Inj 75mg/Ml GPI/NDC: [id number] Decision Notes: PRALUENT INJ 75MG/ML is denied [...] Pharmacy states alirocumab (Praluent) 75 MG/ML injection [[id number]] Requires Prior-Auth documented in this encounter Plan of Treatment Not on file documented as of this encounter Visit Diagnoses Not on filedocumented in this encounter Care Teams Synthetic Staple Extruder Relationship Specialty Start Date End Date Suzy Delgado FNP [address] [place] [address] PCP - General Family Medicine 08/22/22 Vane Das [address] [place] [address] [facility] 09/29/22 documented as of this encounter
--- OUTSIDE RECORDS SUMMARY | 2024-06-02 11:07 | XMS_ITS | Encounter Summary ---
Author Organization [employer] Address [address] [place] [address] Care Team Providers Care Director Of Parks And Recreation Name Role Phone Suzy Delgado Primary Care Provider +1- [phone] Vane Das Unavailable Encounter Details Date Type Department Care Team (Late st Contact Info) Description 06/03/2023 Telephone [facility] [address] [place] [address] Suzy Delgado FNP [address] [place] [address] Social History Tobacco Use Types Packs/Day Years [...] the past 12 months, has t he sifonr, gas, oil or water company threatened to [...] in this encounter Care Teams Director Of Parks And Recreation Relationship Specialty Start Date End Date Suzy Delgado FNP [address] [place] [address] PCP - General Family Medicine 08/22/22 Vaen Das [address] [place] [address] [facility] 09/29/22 documented as of this encounter
--- OUTSIDE RECORDS SUMMARY | 2024-06-02 11:07 | XMS_ITS | Encounter Summary ---
Author Organization [facility] [employer] Address [address] [place] [address] 7t [place] [address] Care Team Providers Care Credit Processor Name Role Phone Lenora Cabrera Primary Care Provider Unavailab Lenora Cardenas Unavailable Unavailable Suzy Delgado Primary Care Provider +0- [phone] Vane Das Unavailable Vane Das Unavailable Encounter Details Date Type Department Care Team (Late st Contact Info) Description 01/20/2022 Abstract [facility] [address] [place] [phone] Lenora Cabrera FNP Social History Tobacco Use Types Packs/Day Years Used Date Smoking Tobacco: Never Assessed Comments Unknown Sex and Gender Information Value Date Recorded Sex Assigned at Female 02/02/2022 8:46 AM EST Legal Sex Female 6:22 PM EDT Gender Identity Female 12/27/2021 6:22 PM EDT Sexual Orientation Choose not to disclose 2024 9:45 AM EST documented as of this encounter Plan of Treatment Not on file documented as of this encounter Visit Diagnoses Not on filedocumented in this encounter Care Teams Credit Processor Relationship Specialty Start Date End Date Lenora Cabrera FNP PCP - General Family Medicine 12/27/21 08/21/22 Suzy Delgado FNP [address] [place] [address] PCP - General Family Medicine 08/22/22 Lenora Cabrera FNP Family Medicine 12/27/21 09/14/22 Vane Das [address] [place] [address] 09/15/22 03/04/23 Vane Das [address] [place] [address] [facility] 09/29/22 documented as of this encounter
--- OUTSIDE RECORDS SUMMARY | 2024-06-02 11:07 | XMS_ITS | Encounter Summary ---
Author Organization [employer] Address [address] [place] [address] 7t [place] [address] Care Team Providers Care Principal Cloud Architect Name Role Phone Suzy Delgado Primary Care Provider +1- [phone] Vane Das Unavailable Encounter Details Date Type Department Care Team (Late st Contact Info) Description 04/06/2024 Orders Only [facility] [address] [place] [phone] Suzy Delgado FNP 102 [place], [place] [phone] Acute cystitis without hematuria (Primary Dx) Social [...] documented as of this encounter Care Teams Principal Cloud Architect Relationship Specialty Start Date End Date Suzy Delgado FNP [address] [place] [address] PCP - General Family Medicine 08/22/22 Vane Das [address] [place] [address] [facility] 09/29/22 documented as of this encounter
--- OUTSIDE RECORDS SUMMARY | 2024-06-02 11:07 | XMS_ITS | Encounter Summary ---
Author Organization [employer] Address [address] [facility] 7t [place] [address] Care Team Providers Care Tufting Creeler Name Role Phone Sandy Suzy NURSE'S AIDES TEACHER Primary Care Provider +1- [phone] Vane Das Unavailable Encounter Details Date Type Department Care Team ([facility] st Contact Info) Description 04/15/2023 Abstract [facility] [address] [place] [phone] Suzy Delgado NURSE'S AIDES TEACHER 102 [place], [place] [phone] Social History Tobacco Use Types Packs/Day Years [...] on filedocumented in this encounter Care Teams Tufting Creeler Relationship Specialty Start Date End Date Suzy Delgado FNP 102 [place] [address] PCP - General Family Medicine 08/22/22 Vane Das [address] [place] [address] [facility] 09/29/22 documented as of this encounter
--- OUTSIDE RECORDS SUMMARY | 2024-06-02 11:07 | XMS_ITS | Encounter Summary ---
Author Organization [employer] Address [address] [place] [address] 7t [place] [address] Care Team Providers Care Merchandiser Seasonal Name Role Phone Suzy Delgado MEDICAL RECORD SPECIALIST Primary Care Provider +1- [phone] Vane Das Unavailable Encounter Details Date Type Department Care Team ([facility] st Contact Info) Description 05/05/2024 Telephone [facility] 102 [place] [address] Suzy Delgado [facility] 102 [place], [place] [phone] Social History Tobacco Use Types Packs/Day Years [...] encounter Miscellaneous Notes * Telephone Encounter - Suzy Delgado MEDICAL RECORD SPECIALIST - 05/09/2024 12:52 PM EDT I called as requested by the patient and was informed that the patient must have diabetes, congestive heart failure, or cardiovascular disorders to qualify and there was a deadline to confirm her diagnosis by 04/29/24. She is no longer enrolled due to failure to verify her qualifying d iagnosis. I reviewed her chart and confirmed that she does not have a qualifying diagnosis. I don'tthink there is anything else I can do for her on this. * Telephone Encounter - KATHY Bolton - 05/06/2024 9:13 AM EST Attempted to reach [facility] at number provided, office not open, no opportunity to leave a message * Telephone Encounter - Lin Dodson - 05/05/2024 11:38 AM EST In provider inbox for completion * Telephone Encounter - Nuria Morillo - 05/05/2024 10:23 AM EST Pt has brought in a document from [facility], Chronic Condition Release of Info, she'd like pcp to complete and sign as soon as possible. As it is for an upcoming surgery. See media. Physical copy left in pcp Mail box. When completed, pt would like a call at #[phone] documented in this encounter Plan of Treatment Not on file documented as of this encounter Visit Diagnoses Not on filedocumented in this encounter Additional Health Concerns Assessment Noted Time PHQ-9 Depression Total Score: 4 10/16/19 24 9:49 AM EDT documented as of this encounter Care Teams Merchandiser Seasonal Relationship Specialty Start Date End Date Suzy Delgado FNP [address] [place] [address] PCP - General Family Medicine 08/22/22 Vane Das [address] [place] [address] [facility] 09/29/22 documented as of this encounter
--- OUTSIDE RECORDS SUMMARY | 2024-06-02 11:08 | XMS_ITS | Encounter Summary ---
Author Organization [employer] Address [address] [place] [address] Care Team Providers Care Copper Miner Name Role Phone Suzy Delgado KATHY Primary Care Provider +1- [phone] Vane Das Unavailable Encounter Details Date Type Department Care Team (Late st Contact Info) Description 09/17/2023 Orders Only [facility] [address] [place] [address] Provider, Not In System Social [...] Provider HEALTH MAINTENANCE Edited Result - Final documented in this encounter Visit Diagnoses Not on filedocumented in this encounter Care Teams Copper Miner Relationship Specialty Start Date End Date Suzy Delgado FNP [address] [place] [address] PCP - General Family Medicine 08/22/22 Vane Das [address] [place] [address] [facility] 09/29/22 documented as of this encounter
--- OUTSIDE RECORDS SUMMARY | 2024-06-02 11:08 | XMS_ITS | Clinical Summary ---
Author Organization [facility] Address [address] [place] [address] Care Team Providers Care Gelatin Dynamite Packing Operator Name Role Phone Lucien Costa MD Primary Care Provider [phone] Social History Tobacco Use Types Packs/Day Years Used Date Smoking Tobacco: Never Assessed Comments Unknown Sex and Gender Information Value Date Recorded Sex Assigned at Not on file Legal Sex Female 8:18 AM EST Gender Identity Not on file Sexual Orientation Not on file Plan of Treatment Health Maintenance Due Date Last Done Comments Breast Cancer Screening 1960 DTaP,Tdap,and Td Vaccines (1 - Tdap) 1977 Pneumococcal Vaccine: 50+ Ye ars (1 of 1 - PCV) 01/22/2008 Zoster Vaccines (1 of 2) 01/22/2008 COVID-19 Vaccine ( - 2023-2 5 season) 2023 Influenza Vaccine (Season Ended) 2024 RSV Immunization Adult Patie nts (1 - 1-dose 75+ series) 2033 HIB [...] patient's age to complete this topic Meningococcal B Vacine Aged Out No lo nger eligible based on patient's age to complete this topic RSV Immunization Patients Un adriana 20 months Aged Out No longer eligible b ased on patient's age to complete this topic Varicella Vaccines Aged Out No longer eligible based on patient's age to complete this topic Care Teams Gelatin Dynamite Packing Operator Relationship Specialty Start Date End Date Lucien Costa MD [address] [place] [phone] PCP - General Family Medicine 07/07/17
--- OUTSIDE RECORDS SUMMARY | 2024-06-02 11:08 | XMS_ITS | Encounter Summary ---
Author Organization [employer] Address [address] [facility] 7t [place] [address] Care Team Providers Care Etl Lead Name Role Phone Suzy Delgado TREE SPECIALIST Primary Care Provider [phone]- [phone] Vane Das Unavailable Encounter Details Date Type Department Care Team ([facility] st Contact Info) Description 09/23/[address] [facility] [address] [place] [address] [facility] [address] [place], [place] [phone] Social History Tobacco Use Types Packs/Day Years [...] the past 12 months, has t he [employer], gas, oil or water company threatened to [...] Comp / Auto: No Insurance: Name: Address: Mechanical Test Engineer's Name: Date of Injury: Phone Number: Fax Number: Claim Number Additional Comments: Patient thinks they have shingles. No HX of shingles. Has not tried OTC medications. documented in this encounter Plan of Treatment Not on file documented as of this encounter Visit Diagnoses Not on filedocumented in this encounter Care Teams Etl Lead Relationship Specialty Start Date End Date Suzy Delgado FNP [address] [place] [address] PCP - General Family Medicine 08/22/22 Vane Das [address] [place] [address] [facility] 09/29/22 documented as of this encounter
--- OUTSIDE RECORDS SUMMARY | 2024-06-02 11:08 | XMS_ITS | Encounter Summary ---
Author Organization [employer] Address [address] [place] [address] Care Team Providers Care Production Aide Name Role Phone Suzy Delgado Primary Care Provider [phone]- [phone] Vane Das Unavailable Encounter Details Date Type Department Care Team (Late st Contact Info) Description 03/30/[address] [place] [address] Suzy Delgado FNP [address] [place] [address] Social History Tobacco Use Types Packs/Day Years [...] * Telephone Encounter - Sara Yuan - 04/01/2024 11:15 AM EST Pt notified on portal * Telephone Encounter - Shanelle Townsend - 03/30/2024 10:56 AM EST Patient is calling to have some lab work ordered to check her thyroid. Please advise when the orders have been put In. Call back # [phone] documented in this encounter Plan of Treatment Not on file documented as of this encounter Visit Diagnoses Not on filedocumented in this encounter Additional Health Concerns Assessment Noted Time PHQ-9 Depression Total Score: 4 10/16/19 24 9:49 AM EDT documented as of this encounter Care Teams Production Aide Relationship Specialty Start Date End Date Suzy Delgado FNP [address] [place] [address] PCP - General Family Medicine 08/22/22 Vane Das [address] [place] [address] [facility] 09/29/22 documented as of this encounter
--- OUTSIDE RECORDS SUMMARY | 2024-06-02 11:08 | XMS_ITS | Encounter Summary ---
Author Organization [employer] Address [address] [facility] [address] [place] [address] Care Team Providers Care Brine Supervisor Name Role Phone Suzy Delgado [facility] Primary Care Provider [phone]- [phone] Vane Das Unavailable Encounter Details Date Type Department Care Team ([facility] st Contact Info) Description 10/01/2023 Telephone [facility] [address] [place] [address] Suzy Delgado [facility] [address] [place], [place] [id number] Social History Tobacco Use Types Packs/Day Years [...] the past 12 months, has t he [employer], gas, oil or water company threatened to [...] PM EDT Verified Insurance: Yes Referral Office: [facility] pulmonology Diagnosis Code: ICD code R06.02 Number of Visits Needed:8 NPI# of Facility: NPI# of Provider being referred to:[id number] Phone #:[phone] Fax #: [phone] Office lvm on our machine this is the only info they provided documented in this encounter Plan of Treatment Not on file documented as of this encounter Visit Diagnoses Not on filedocumented in this encounter Care Teams Brine Supervisor Relationship Specialty Start Date End Date Suzy Delgado FNP [address] [place] [address] PCP - General Family Medicine 08/22/22 Vane Das [address] [place] [address] [facility] 09/29/22 documented as of this encounter
--- OUTSIDE RECORDS SUMMARY | 2024-06-02 11:08 | XMS_ITS | Encounter Summary ---
Author Organization [employer] Address [address] [facility] [address] [place] [address] Care Team Providers Care Building Cleaning Supervisor Name Role Phone Suzy Delgado [facility] Primary Care Provider [phone]- [phone] Vane Das Unavailable Encounter Details Date Type Department Care Team ([facility] st Contact Info) Description 10/09/2023 Telephone [facility] [address] [place] [address] Suzy Delgado [facility] [address] [place], [place] [phone] Social History Tobacco Use Types Packs/Day Years [...] the past 12 months, has t he [employer], gas, oil or water company threatened to [...] on filedocumented in this encounter Care Teams Building Cleaning Supervisor Relationship Specialty Start Date End Date Suzy Delgado FNP [address] [place] [address] PCP - General Family Medicine 08/22/22 Vane Das [address] [place] [id number] [facility] 09/29/22 documented as of this encounter
--- OUTSIDE RECORDS SUMMARY | 2024-06-02 11:08 | XMS_ITS | Clinical Summary ---
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 being provided for informational/ educational purposes only.) 04/01/2023 11:5 8 AM EST 04/01/2023 12:[address] [facility] LAB BLOOD ORDERABLES Final Result Performing Organization Address City/[facility]/ZIP Co de Phone Number [facility] [address], [place] [address] [facility] [address] [place] [address] * CT Low Dose Screening (11/04/2022 9:06 AM EDT) Anatomical Region Laterality Modality Chest Computed Tomogra phy 11/04/2022 9:06 AM EDT Narrative 11/04/2022 10:[address] Chest LDCT Lung Program Reason: Other:; LDCT LUNG CANCER SCREENING PROGRAM, CURRENT SMOKER, 62 PK YR HX; Clinical Question(s): Other:; Special Instructions: BOOK AT [address] [place] [address] ??BOOK AFTER 10 08 2022 ??NO CHEST [...] lingular nodule, image 194, unchanged. OTHER FINDINGS: [employer] Lead view findings, lines and tubes: None. Trachea [...] as described above. Categorization based on Lung-RADS 202 criteria. [email or web address] WSN: [id number] Ordering Physician: Lenora Cabrera Dictated By: ?Mayuri Guerrero MD Dictated Date/Time: ?11/04/22 10:34 a Reviewed By: ?Mayuri Guerrero MD Signed By: ? Mayuri Guerrero MD Signed Date/Time: ? 11/04/22 10:34 am Transcribed By: ? CSB Transcribed Date/Time: ?11/04/22 10:18 am Procedure Note Donhaileeinterpreter, Image - 11/04/2022 CT Chest LDCT Lung Program Reason: Other:; LDCT LUNG CANCER SCREENING PROGRAM, CURRENT SMOKER, 62 PKYR HX; Clinical Question(s): Other:; Special Instructions: BOOK AT [address] [place] [address]., [place] [facility] BOOK AFTER 10 08 2022 NO CHEST [...] lingular nodule, image 194, unchanged. OTHER FINDINGS: [employer] Lead view findings, lines and tubes: None. Trachea [...] above. Categorization based on Lung-RADS 2022 criteria. [email or web address] WSN: [id number] Ordering Physician: Lenora Cabrera Dictated By: Mayuri Guerrero MD Dictated Date/Time: 11/04/22 10:34 a Reviewed By: Mayuri Guerrero MD Signed By: Mayuri Guerrero MD Signed Date/Time: 11/04/22 10:34 am Transcribed By: MIGNON Transcribed Date/Time: 11/04/22 10:18 am Lenora Cabrera EL TEACHER IMG CT PROCEDURES Final Result from Last 3 Months or Most Recently Relevant to Health Maintenance Insurance [facility] MEDICARE [facility] MEDICARE ADVANTAGE HMO Care Teams Roadway Technician Relationship Specialty Start Date End Date Suzy Delgado FNP [address] [place] [address] PCP - General Family Medicine 08/22/22 Vane Das [address] [place] [address] [facility] 09/29/22
--- OUTSIDE RECORDS SUMMARY | 2024-06-02 11:08 | XMS_ITS | Encounter Summary ---
Author Organization [employer] Address [address] [facility] 7t [place] [address] Care Team Providers Care Boner Meat Name Role Phone Suzy Delgado AIRCRAFT AIR CONDITIONING MECHANIC Primary Care Provider +1- [phone] Vane Das Unavailable Reason for Visit * Reason Comments Med Refill Encounter Details Date Type Department Care Team (Late st Contact Info) Description 03/30/2024 Refill [facility] [address] [facility] [address] [place] [address] Armaan Garcia, [facility] [address] [place] [address] Other specified hypothyroidism Social History Tobacco Use [...] documented as of this encounter Care Teams Boner Meat Relationship Specialty Start Date End Date Suzy Delgado FNP [address] [place] [address] PCP - General Family Medicine 08/22/22 Vane Das [address] [place] [address] [facility] 09/29/22 documented as of this encounter
--- OUTSIDE RECORDS SUMMARY | 2024-06-02 11:08 | XMS_ITS | Encounter Summary ---
Author Organization [employer] Address [address] [facility] [address] 7t [place] [address] Care Team Providers Care Glue Jointer Operator Name Role Phone Suzy Delgado KATHY Primary Care Provider +1- [phone] Vane Das Unavailable Encounter Details Date Type Department Care Team (Late st Contact Info) Description 09/21/2023 Orders Only [facility] [address] [place] [address] Provider, Not In System Social [...] on filedocumented in this encounter Care Teams Glue Jointer Operator Relationship Specialty Start Date End Date Suzy Delgado FNP [address] [place] [address] PCP - General Family Medicine 08/22/22 Vane Das [address] [place] [address] [facility] 09/29/22 documented as of this encounter
== END 2024-06-02 10:30 | disposition home or self-care (01) ==
PROVIDERS: PCP Nurse Practitioner Women's Health; Visit Provider Anesthesiology
DX: M96.1 Postlaminectomy syndrome, not elsewhere classified (principal); M25.561 Pain in right knee; M25.562 Pain in left knee; G89.4 Chronic pain syndrome
CPT/HCPCS: 99024

== ENCOUNTER → 2024-06-02 10:15 | Outpatient (BNVA) | payer OTHER, SELFPAY | PROVIDERS: PCP Nurse Practitioner Women's Health; Visit Provider Anesthesiology | DX: M96.1 Postlaminectomy syndrome, not elsewhere classified (principal); M25.561 Pain in right knee; M25.562 Pain in left knee; G89.4 Chronic pain syndrome; Z96.89 Presence of other specified functional implants; Z79.899 Other long term (current) drug therapy | CPT/HCPCS: 99212 ==

== ENCOUNTER 2024-06-09 09:55 | Outpatient (AMB) | payer MEDICARE, MEDICAID, SELFPAY ==
--- NOTE | 2024-06-09 10:16 | MHC.OFFVIS ---
Vital Signs 06/09/24 10:23 Height 5 ft 10 in Weight 240 lb BMI 34.4 BP 125/66 Blood Pressure Location Lt brachial Position Sitting Pulse 93 Pulse Source Pulse Oximeter Pulse Oximetry (%) 97 Oxygen Delivery Method Room Air Intake Visit Reasons: S/p ITDD Pain Pump Replcmnt 05/27/24 (2nd Visit) Allergies codeine Allergy (Unknown, Verified 06/09/24 10:17) Unknown nabumetone Allergy (Unknown, Verified 06/09/24 10:17) unknown adhesive tape Allergy (Severe, Uncoded 06/09/24 10:17) Rash latex Allergy (Severe, Uncoded 06/09/24 10:17) Rash pollen Allergy (Unknown, Uncoded 06/09/24 10:17) Unknown HPI Comments Details: Danielle is today in my office after replacement of the intrathecal pain pump. The wound was examined today after removal of the dressing. No redness no swelling no pathological discharge no tenderness on palpation. Noemí were removed today,. Dry dressing was applied. Hygiene limitations were explained to the patient. The pain of the patient today 0/10. She is very comfortable. Pump refill on 06/30/2024 [facility] Medical History Presence of intrathecal pump Sleep apnea Chronic pain syndrome Increased BMI Presence of intrathecal pump Back pain Hypothyroid GERD (gastroesophageal reflux disease) COPD (chronic obstructive pulmonary disease) Postlaminectomy syndrome Surgical History History of hip surgery History of hysterectomy Social History Patient Tobacco Use Status: Current everyday Tobacco user Tobacco use type: Cigarette Cigarette Packs Per Day: 1 Cigarettes Per Day: 20.0 Review of Systems Const All systems reviewed & are unremarkable except as noted in HPI and below Physical Exam Vital Signs: Last Vital Signs Pulse 93 06/09/24 10:23 BP 125/66 06/09/24 10:23 Pulse Ox 97 06/09/24 10:23 Oxygen Delivery Method Room Air 06/09/24 10:23 BMI result Body Mass Index 34.4 Eyes General: appearance normal, both eyes and all related structures EOM: EOMs intact bilaterally Neck Neck: Yes full ROM Chest Chest palpation & inspection: normal inspection of the chest Resp Effort & Inspection: normal respiratory effort, able to speak in complete sentences, normal respiratory pattern, no audible wheezes and no cough Cardio Jugular venous distension: no JVD GI Inspection: Yes normal to inspection Back/Spine/Pelvis Back: No mass, No erythema and No warmth Assessment & Plan Assessment & Plan (1) Postlaminectomy syndrome: Code(s): M96.1 - Postlaminectomy syndrome, not elsewhere classified Category: Medical (2) Bilateral knee pain: Code(s): M25.561 - Pain in right knee; M25.562 - Pain in left knee Category: Medical Plan: The patient is doing very well after the removal of the old and insertion of the new SynchroMed 3 intrathecal pain pump to the old intrathecal catheter. The wound is doing very well. No signs of infection or inflammation. The new pump refill will be scheduled accordingly. (3) Left knee pain: Code(s): M25.562 - Pain in left knee Category: Medical Plan: (4) Chronic pain syndrome: Code(s): G89.4 - Chronic pain syndrome Category: Medical Plan: Plan The pump refill will be scheduled on 06/30/2024. Coding Level of Care Code Est Pt Level 3 (99194) Diagnoses Postlaminectomy syndrome M96.1 Bilateral knee pain M25.561; M25.562 Left knee pain M25.562 Chronic pain syndrome G89.4
[2024-06-09 10:23] VITALS: BP 125/66; PULSE 93; O2SAT 97; BMI 34.4
--- OUTSIDE RECORDS SUMMARY | 2024-06-09 11:23 | XMS_ITS | Encounter Summary ---
Author Organization [facility] [employer] Address [address] [facility] 7t [place] [address] Care Team Providers Care Semi Truck Driver Name Role Phone Lenora Cabrera Primary Care Provider Unavailab Lenora Cardenas Unavailable Unavailable Suzy Deglado Primary Care Provider +1- [phone] Vane Das Unavailable Vane Das Unavailable Encounter Details Date Type Department Care Team (Late st Contact Info) Description 06/25/[address] [id number] Lenora Cabrera FNP Social History Tobacco Use [...] on filedocumented in this encounter Care Teams Semi Truck Driver Relationship Specialty Start Date End Date Lenora Cabrera FNP PCP - General Family Medicine 10/28/22 6/22/23 Suzy Delgado FNP [address] [place] [address] PCP - General Family Medicine 08/22/22 Lenora Cabrera FNP Family Medicine 12/27/21 09/14/22 Vane Das [address] [place] [address] 09/15/22 03/04/23 Vane Das [address] [place] [address] [facility] 09/29/22 documented as of this encounter
--- OUTSIDE RECORDS SUMMARY | 2024-06-09 11:23 | XMS_ITS | Clinical Summary ---
Author Organization [facility] ity Address [address] [place] [address] Care Team Providers Care Ammonium Sulfate Operator Name Role Phone Lucien Costa MD Primary Care Provider [phone] Social History Tobacco Use Types Packs/Day Years [...] age to complete this topic Meningococcal B Vaccine Aged Out No l onger eligible based on patient's age to complete this topic RSV Immunization Patients Un adriana 20 months Aged Out No longer eligible b ased on patient's age to complete this topic Varicella Vaccines Aged Out No longer eligible based on patient's age to complete this topic Care Teams Ammonium Sulfate Operator Relationship Specialty Start Date End Date Lucien Costa MD [address] [place] [phone] PCP - General Family Medicine 07/07/17
--- OUTSIDE RECORDS SUMMARY | 2024-06-09 11:23 | XMS_ITS | Encounter Summary ---
Author Organization [employer] Address [address] [facility] 7t [place] [address] Care Team Providers Care Shaker Screen Operator Name Role Phone Sandy Suzy ASSISTANT PARALEGAL Primary Care Provider +1- [phone] Vane Das Unavailable Encounter Details Date Type Department Care Team ([facility] st Contact Info) Description 04/15/2023 Abstract [facility] [address] [place] [phone] Suzy Delgado ASSISTANT PARALEGAL [address] [place], [place] [phone] Social History Tobacco Use Types Packs/Day Years [...] on filedocumented in this encounter Care Teams Shaker Screen Operator Relationship Specialty Start Date End Date Suzy Delgado FNP [address] [place] [address] PCP - General Family Medicine 08/22/22 Vane Das [address] [place] [address] [facility] 09/29/22 documented as of this encounter
--- OUTSIDE RECORDS SUMMARY | 2024-06-09 11:23 | XMS_ITS | Encounter Summary ---
Author Organization [employer] Address [address] [place] [address] 7t [place] [address] Care Team Providers Care Fruit Loader Name Role Phone Suzy Delgado EFFICIENCY CLERK Primary Care Provider +1- [phone] Vane Das Unavailable Encounter Details Date Type Department Care Team ([facility] st Contact Info) Description 05/05/2024 Telephone [facility] [address] [place] [address] Suzy Delgado [facility] [address] [place], [place] [phone] Social History Tobacco Use Types Packs/Day Years [...] Notes * Telephone Encounter - Suzy Delgado EFFICIENCY CLERK - 05/09/2024 12:52 PM EDT I called [...] 05/06/2024 9:13 AM EST Attempted to reach [facility] at number provided, office not open, no opportunity to leave a message * Telephone Encounter - Lin Dodson - 05/05/2024 11:38 AM EST In provider inbox for completion * Telephone Encounter - Nuria Morillo - 05/05/2024 10:23 AM EST Pt has brought in a document from [facility], Chronic Condition Release of Info, she'd like pcp to complete and sign as soon as possible. As it is for an upcoming surgery. See media. Physical copy left in pcp Mail box. When completed, pt would like a call at #[phone] documented in this encounter Plan of Treatment Not on file documented as of this encounter Visit Diagnoses Not on filedocumented in this encounter Additional Health Concerns Assessment Noted Time PHQ-9 Depression Total Score: 4 10/16/19 24 9:49 AM EDT documented as of this encounter Care Teams Fruit Loader Relationship Specialty Start Date End Date Suzy Delgado FNP [address] [place] [address] PCP - General Family Medicine 08/22/22 Vane Das [address] [place] [address] [facility] 09/29/22 documented as of this encounter
--- OUTSIDE RECORDS SUMMARY | 2024-06-09 11:23 | XMS_ITS | Encounter Summary ---
Author Organization [employer] Address [address] [facility] [address] 7[address] [place] [address] Care Team Providers Care Scout Executive Name Role Phone Suzy Delgado Primary Care Provider +1- [phone] Vane Das Unavailable Encounter Details Date Type Department Care Team (Late st Contact Info) Description 06/03/2023 Telephone [facility] [address] [facility] [address] [place] [address] Suzy Delgado FNP [address] [place] [address] Social History Tobacco Use Types Packs/Day Years [...] the past 12 months, has t he [employer] gas, oil or water company threatened to [...] on filedocumented in this encounter Care Teams Scout Executive Relationship Specialty Start Date End Date Suzy Delgado FNP [address] [place] [address] PCP - General Family Medicine 08/22/22 Vane Das [address] [place] [address] [facility] 09/29/22 documented as of this encounter
--- OUTSIDE RECORDS SUMMARY | 2024-06-09 11:23 | XMS_ITS | Encounter Summary ---
Author Organization [employer] Address [address] [facility] [address] [place] [address] Care Team Providers Care Vice President Network Development Name Role Phone Suzy Delgado KATHY Primary Care Provider [phone]- [phone] Vane Das Unavailable Encounter Details Date Type Department Care Team (Late st Contact Info) Description 09/21/2023 Orders Only [facility] [address] [place] [address] Provider, Not In System Social [...] on filedocumented in this encounter Care Teams Vice President Network Development Relationship Specialty Start Date End Date Suzy Delgado FNP [address] [place] [address] PCP - General Family Medicine 08/22/22 Vane Das [address] [place] [address] [facility] 09/29/22 documented as of this encounter
--- OUTSIDE RECORDS SUMMARY | 2024-06-09 11:23 | XMS_ITS | Encounter Summary ---
Author Organization [facility] [employer] Address [address] [place] [address] 7t [place] [address] Care Team Providers Care Radiography Technician Name Role Phone Lenora Cabrera Primary Care Provider Unavailab Lenora Cardenas Unavailable Unavailable Suzy Delgado Primary Care Provider +[phone]- [phone] Vane Das Unavailable Vane Das Unavailable Encounter Details Date Type Department Care Team (Late st Contact Info) Description 01/20/2022 Abstract [facility] [address] [place] [phone] Lenora Cabrera FNP Social History Tobacco Use [...] on filedocumented in this encounter Care Teams Radiography Technician Relationship Specialty Start Date End Date Lenora Cabrera FNP PCP - General Family Medicine 12/27/21 08/21/22 Suzy Delgado FNP [address] [place] [address] PCP - General Family Medicine 08/22/22 Lenora Cabrera FNP Family Medicine 12/27/21 09/14/22 Vane Das [address] [place] [address] 09/15/22 03/04/23 Vane Das [address] [place] [address] [facility] 09/29/22 documented as of this encounter
--- OUTSIDE RECORDS SUMMARY | 2024-06-09 11:23 | XMS_ITS | Clinical Summary ---
Author Organization [employer] Address [address] [facility] 7t [place] [address] Care Team Providers Care Ingot Header Name Role Phone Suzy Delgado KATHY Primary Care Provider [phone] Vane Das Unavailable Allergies Active Allergy Reactions [...] to 28 days. 56 tablet 023 Active ARIPiprazole (Abilify) 5 MG tabletIndications :Generalized [...] (fourteen) days. 6 mL 3 024 Active naproxen (Naprosyn) 500 MG tabletIndications :Acute pain of left knee TAKE 1 TABLET BY MOUTH TWICE DAILY FOR 5 DAYS, THEN REDUCE TO NEEDED UP TO TWICE DAILY. TAKE WITH FOOD AND WATER 20 tablet 024 Active cholecalciferol (Vitamin D-3) 50 MCG (2000 UT) tabletIndications :Vitamin D deficiency Take 1 tablet (50 mcg) by mouth Once per day. 90 tablet 3 025 Active fluticasone furoate (Arnuity Ellipta) 200 MCG/ACT inhalerIndication s:Chronic obstructive bronchitis (CMS/HCC) Inhale 1 puff Once per day. Rinse mouth with water after use to reduce aftertaste and incidence of candidiasis. Do not swallow. 90 each 3 025 2025 Active albuterol 108 (90 Base) MCG/ACT inhaler Inhale 2 puffs every 4 (four) hours if needed for wheezing. 18 g 1 025 Active DULoxetine (Cymbalta) [address] capsuleIndication s:Generalized anxiety disorder TAKE 2 CAPSULES BY MOUTH EVERY MORNING 120 capsule 3 025 Active nicotine polacrilex (Nicorette) 4 MG gum Chew 1 each (4 mg) every 2 (two) hours if needed for smoking cessation. 220 each 2 025 2024 Active levothyroxine (Synthroid, Levoxyl) 150 MCG tabletIndications :Other specified hypothyroidism TAKE 1 TABLET(150 MCG) BY MOUTH BEFORE BREAKFAST 90 tablet 3 025 Active levothyroxine (Synthroid, Levoxyl) 150 MCG tabletIndications :Hypothyroidism Take 1 tablet (150 mcg) by mouth before breakfast. 30 tablet 1 025 2024 Discontinued Active Problems Problem Noted Date Diagnosed Date [...] D, (D2,D3), LC/MS/MS is recommended: order code 32691 (patients >2yrs). See Note 1 Note 1 For additional information, please refer to http://education.SmartRecruiters.INFOGRAPHIQS/faq/AXR423 (This link is being provided for informational/ educational purposes only.) Start vitamin D supplement now. Assessment & Plan (09/15/2022 10:18 AM EDT): Vitamin D,25-OH Date Value Ref Range Status 06/20/2022 12.2 (L) (20-50) NG/ML Final Comment: Testing performed or reported by [facility], a Service of [facility], [address] [place] [address] Tab Mcdermott MD, Head Of Strategy [facility]# [id number] Start vit D3 supplement now. Repeat labs [...] Final Comment: Testing performed or reported by [facility], a Service of [facility], [address] [place] [address] Tab Mcdermott MD, Head Of Strategy [facility]# [id number] Advised reduce levothyroxine to 200 mcg daily. [...] pump in refilled every 3 months at [facility] [place], followed by Dr. Mcmanus. She reports no complications related to the pump, except for leg edema for that she takes lasix averaging once a week. Assessment & Plan (09/15/2022 10:16 AM EDT): Chronic pain, stable. Currently managed with indwelling morphine pump, managed by pain specialist at [facility]. Sleep apnea 12/03/2005 Assessment & Plan [...] Depression Nicotine dependence 12/24/2009 09/16/19 23 Encounters * This document contains information received from the source organization and may not represent a complete record from that organization. 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 Body cramps r/t macrobid) 04/01/2024 Orders Only [address] [phone] Ele Jara FNP Acquired hypothyroidism (Primary Dx) 03/31/2024 Orders Only [address] [phone] Omar Ching MD Acute cystitis without hematuria (Primary Dx) 03/30/[address] [address] Armaan Garcia DNP Other specified hypothyroidism 03/30/[address] [address] Suzy Delgado FNP Tobacco use disorder 03/30/[address] [address] Suzy Delgado FNP Other specified hypothyroidism 03/30/[address] [address] Suzy Delgado FNP from Last 3 Months [...] 1958 FIT 1958 FOBT 1958 Sigmoidoscopy 1958 Alcohol/Substance Use Screening 1970 Mammogram 1998 Pneumococcal Vaccine: 50+ Years (2 of 2 - PCV) 2012 01/20/2011 RSV Patients and Patients Aged 60 years or older (1 - Risk 60-74 years 1-dose series) 2018 COVID-19 Vaccine ( season) 2023 12/23/2021, 03/13/2021, 06/22/2020, Additional history exists Lung Cancer Screening 11/05/2023 11/04/2022 DTaP/Tdap/Td Vaccines (2 - Td or Tdap) 02/09/2024 02/08/2014 Depression Screening 10/15/2024 10/16/2023, 10/16/19 SDOH Screening [...] T3 Uptake 33 22 - 35 % [facility] [place] [facility] T4 (Thyroxine), Total 11.2 5.1 - 11.9 mcg/dL [facility] [place] [facility] Free T4 Index (T7) 3.7 1.4 - 3.8 [facility] Blood Venous blood specimen / Unknown 05/03/2024 8:16 AM EST 05/03/2024 8:16 AM EST Narrative [facility] - 05/03/2024 9:31 PM EST FASTING:YES FASTING: YES us Ele Jara [facility] LAB BLOOD ORDERABLES Final Resul t [facility] [address], [place] [address] [facility] [place] [facility] [address] [place] [address] * (ABNORMAL) Lipid Panel, Standard (05/03/2024 8:16 AM EST) Cholesterol, Total 182 <200 mg/dL [facility] [place] [facility] HDL Cholesterol 59 > OR = 50 mg/dL [facility] [place] [facility] Triglycerides 127 <150 mg/dL [facility] [place] [facility] LDL Cholesterol 101(H) mg/dL [facility] [place] [facility] Comment: Reference range: <100 Desirable range <100 mg/dL for primary prevention; ?? <70 mg/dL for patients with CHD or diabetic patients with > or = 2 CHD risk factors. LDL-C is now calculated using the Suzi calculation, which is a validated novel method providing better accuracy than the Friedewald equation in the estimation of LDL-C. Mart SS et al. DEQUAN. 2013;310(19): 8410-5645 (http://education.Poliglota/faq/SRE283) Chol/HDLC Ratio 3.1 <5.0 (calc) [facility] [place] [facility] Non-HDL Cholesterol 123 <130 mg/dL [facility] [place] [facility] Comment: For patients with diabetes plus 1 major ASCVD risk factor, treating to a non-HDL-C goal of <100 mg/dL (LDL-C of <70 mg/dL) is considered a therapeutic option. 05/03/2024 8:16 AM EST 05/03/2024 8:16 AM EST Narrative [facility] - 05/03/2024 9:31 PM EST FASTING:YES FASTING: YES Ele Jara [facility] LAB BLOOD ORDERABLES Final Resul t [facility] [address], [place] [address] [facility] [place] [facility] [address] [place] [address] * (ABNORMAL) TSH with Reflex to Free T4 (04/08/2024 11:33 AM EST) TSH w/Reflex to FT4 16.52(H) 0.40 - 4.50 mIU/L [facility] [place] [facility] Blood 04/08/2024 11:3 3 AM EST 04/08/2024 11:33 AM EST Narrative [facility] - 04/09/2024 1:48 AM EST FASTING:NO FASTING: NO Ele Jara [facility] LAB BLOOD ORDERABLES Final Resul t Performing Organization Address City/[facility]/ZIP Co de Phone Number [facility] [address] [place] [address], [place] [address] [facility] [place] [facility] [address] [place] [phone] * T4, Free (04/08/2024 11:33 AM EST) T4, Free 1.3 0.8 - 1.8 ng/dL [facility] [place] [facility] 04/08/2024 11:3 3 AM EST 04/08/2024 11:33 AM EST Narrative [facility] - 04/09/2024 1:48 AM EST FASTING:NO FASTING: NO Ele Jara [facility] LAB BLOOD ORDERABLES Final Resul t Performing Organization Address [facility] Co de Phone Number [facility] [address] [place] [phone] [facility] [place] [facility] [address] [place] [phone] * Reflex Urine Culture (03/28/2024 10:27 AM EST) Pathologist [facility] REFLEXIVE URINE CULTURE [facility] Comment:CULTURE INDICATED - RESULTS TO FOLLOW 03/28/2024 10:2 7 AM EST 03/28/2024 10:28 AM EST Narrative [facility] - 03/31/2024 2:27 PM EST FASTING:NO FASTING: NO Omar Ching MD HISTORICAL/NON ORDERABLE LAB S Final Result Performing Organization Address [facility] Co de Phone Number [address] [address] [facility] [place] [facility] [address] [place] [phone] * (ABNORMAL) Urinalysis, Complete, with Reflex to Culture (03/28/2024 10:27 AM EST) Color YELLOW YELLOW [facility] [place] [facility] Appearance CLOUDY(A) CLEAR [facility] [place] [facility] Specific [place] 1.018 1.001 - 1.035 [facility] [place] [facility] pH, Urine 6.0 5.0 - 8.0 [facility] [place] [facility] Glucose, Urine NEGATIVE NEGATIVE [facility] [place] [facility] Bilirubin,Uri ne NEGATIVE NEGATIVE [facility] [place] [facility] Ketones,Urine NEGATIVE NEGATIVE [facility] [place] [facility] Occult Blood,Urine NEGATIVE NEGATIVE [facility] [place] [facility] Protein,Urine NEGATIVE NEGATIVE [facility] [place] [facility] Nitrite POSITIVE(A) NEGATIVE [facility] [place] [facility] Leukocyte Esterase 2+(A) NEGATIVE [facility] [place] [facility] WBC, UA 40-60(A) < OR = 5 /HPF [facility] [place] [facility] RBC, UA NONE SEEN < OR = 2 /HPF [facility] [place] [facility] Squamous Epithelial Cells 0-5 < OR = 5 /HPF [facility] [place] [facility] Bacteria MANY(A) NONE SEEN /HPF [facility] [place] [facility] Hyaline Cast NONE SEEN NONE SEEN /LPF [facility] [place] [facility] Note [facility] [place] [facility] Comment: This urine was analyzed for the presence of WBC, RBC, bacteria, casts, and other formed elements. Only those elements seen were reported. Urine 03/28/2024 10:2 7 AM EST 03/28/2024 10:28 AM EST Narrative [facility] - 03/31/2024 2:27 PM EST FASTING:NO FASTING: NO Omar Ching MD LAB URINE ORDERABLES Final R esult [facility] [address], [place] [address] [facility] [place] [facility] [address] [place] [address] * CBC auto differential (03/28/2024 10:27 AM EST) White Blood Cell Count 7.7 3.8 - 10.8 Thousand/ uL [facility] [place] [facility] Red Blood Cell Count 4.45 3.80 - 5.10 Million/u L [facility] [place] [facility] Hemoglobin 13.8 11.7 - 15.5 g/dL [facility] [place] [facility] Hematocrit 41.9 35.0 - 45.0 % [facility] [place] [facility] MCV 94.2 80.0 - 100.0 fL [facility] MCH 31.0 27.0 - 33.0 pg [facility] [place] [facility] MCHC 32.9 32.0 - 36.0 g/dL [facility] [place] [facility] Comment: For adults, a slight decrease in the calculated MCHC value (in the range of 30 to 32 g/dL) is most likely not clinically significant; however, it should be interpreted with caution in correlation with other red cell parameters and the patient's clinical condition. RDW 12.9 11.0 - 15.0 % [facility] [place] [facility] Platelet Count 252 140 - 400 Thousand/ uL [facility] [place] [facility] MPV 10.2 7.5 - 12.5 fL [facility] [place] [facility] Absolute Neutrophils 3,527 1,500 - 7,800 cells/uL [facility] [place] [facility] Absolute Lymphocytes 3,319 850 - 3,900 cells/uL [facility] [place] [facility] Absolute Monocytes 539 200 - 950 cells/uL [facility] [place] [facility] Absolute Eosinophils 270 15 - 500 cells/uL [facility] [place] [facility] Absolute Basophils 46 0 - 200 cells/uL [facility] [place] [facility] Neutrophils 45.8 % [facility] Lymphocytes 43.1 % [facility] [place] [facility] Monocytes 7.0 % [facility] Eosinophils 3.5 % [facility] [place] [facility] Basophils 0.6 % [facility] [place] [facility] Blood Venous blood specimen / Unknown 03/28/2024 10:27 AM EST 03/28/2024 10:28 AM EST Narrative [facility] - 03/31/2024 2:27 PM EST FASTING:NO FASTING: NO us Omar Ching MD LAB BLOOD ORDERABLES Final R esult [facility] [address], [place] [address] [facility] [place] [facility] [address] [place] [address] * Sed Rate by Modified Westergren (03/28/2024 10:27 AM EST) Sed Rate By Modified Westergren 9 < OR = 30 mm/h [facility] [place] [facility] Blood Venous blood specimen / Unknown 03/28/2024 10:27 AM EST 03/28/2024 10:28 AM EST Narrative [facility] - 03/31/2024 2:27 PM EST FASTING:NO FASTING: NO us Omar Ching MD LAB BLOOD ORDERABLES Final R esult [facility] [address], [place] [address] [facility] [address] [place] [address] * (ABNORMAL) Culture, Urine, Routine (03/28/2024 10:27 AM EST) Culture, Urine, Routine SEE NOTE(A) [facility] [place] [facility] Comment: ??CULTURE, URINE, ROUTINE ?Micro Number: ?[id number] ??Test Status: ? Final ??Specimen Source: ?? [...] FASTING: NO us Omar Ching MD LAB MICROBIOLOGY - GENERAL O RDERABLES Final Result Performing Organization Address [facility] de Phone Number [address] [phone] [facility] [place] [facility] [address] [place] [phone] * C-reactive Protein (03/28/2024 10:27 AM EST) C-Reactive Protein <3.0 <8.0 mg/L [facility] Blood Venous blood specimen / Unknown 03/28/2024 10:27 AM EST 03/28/2024 10:28 AM EST Narrative [facility] - 03/31/2024 2:27 PM EST FASTING:NO FASTING: NO us Omar Ching MD LAB BLOOD ORDERABLES Final R esult Performing Organization Address [facility] de Phone Number [address] [address] [facility] [place] [facility] [address] [place] [phone] * Lipase (03/28/2024 10:27 AM EST) Lipase 59 7 - 60 U/L [facility] [place] [facility] Blood Venous blood specimen / Unknown 03/28/2024 10:27 AM EST 03/28/2024 10:28 AM EST Narrative [facility] - 03/31/2024 2:27 PM EST FASTING:NO FASTING: NO us Omar Ching MD LAB BLOOD ORDERABLES Final R esult Performing Organization Address [facility] Co de Phone Number [address], [place] [address] [facility] [place] [facility] [address] [place] [address] * Amylase (03/28/2024 10:27 AM EST) Pathologist [facility] Amylase 26 21 - 101 U/L [facility] [place] [facility] Blood Venous blood specimen / Unknown 03/28/2024 10:27 AM EST 03/28/2024 10:28 AM EST Narrative [facility] - 03/31/2024 2:27 PM EST FASTING:NO FASTING: NO Omar Ching MD LAB BLOOD ORDERABLES Final R esult Performing Organization Address [facility] de Phone Number [address], [place] [address] [facility] [place] [facility] [address] [place] [phone] * Hepatic Function Panel (03/28/2024 10:27 AM EST) Pathologist [facility] Protein, Total 7.1 6.1 - 8.1 g/dL [facility] [place] [facility] Albumin 4.5 3.6 - 5.1 g/dL [facility] [place] [facility] Globulin 2.6 1.9 - 3.7 g/dL (calc) [facility] [place] [facility] Albumin/Globulin Ratio 1.7 1.0 - 2.5 (calc) [facility] [place] [facility] Bilirubin, Total 0.4 0.2 - 1.2 mg/dL [facility] [place] [facility] Bilirubin, Direct 0.1 < OR = 0.2 mg/dL [facility] [place] [facility] Bilirubin, Indirect 0.3 0.2 - 1.2 mg/dL (calc) [facility] [place] [facility] Alkaline Phosphatase 57 37 - 153 U/L [facility] [place] [facility] AST 17 10 - 35 U/L [facility] [place] [facility] ALT 24 6 - 29 U/L [facility] [place] [facility] Blood Venous blood specimen / Unknown 03/28/2024 10:27 AM EST 03/28/2024 10:28 AM EST Narrative [facility] - 03/31/2024 2:27 PM EST FASTING:NO FASTING: NO Omar Ching MD LAB BLOOD ORDERABLES Final R esult Performing Organization Address City/[facility]/ZIP Co de Phone Number [address], [place] [address] [facility] [place] [facility] [address] [place] [address] * Basic Metabolic Panel (03/28/2024 10:27 AM EST) Pathologist [facility] Glucose 83 65 - 139 mg/dL [facility] [place] [facility] Comment: ? Non-fasting reference interval Urea Nitrogen (BUN) 15 7 - 25 mg/dL [facility] [place] [facility] Creatinine, Serum 0.88 0.50 - 1.05 mg/dL [facility] [place] [facility] eGFR 72 > OR = 60 mL/min/1. 73m2 [facility] [place] [facility] BUN/Creatinine Ratio SEE NOTE: 6 (calc) [facility] [place] [facility] Comment: ?? Not Reported: BUN and Creatinine are within ?? reference range. ? Sodium 138 135 - 146 mmol/L [facility] [place] [facility] Potassium 4.2 3.5 - 5.3 mmol/L [facility] [place] [facility] Chloride 103 98 - 110 mmol/L [facility] [place] [facility] Carbon Dioxide 27 20 - 32 mmol/L [facility] [place] [facility] Calcium 9.8 8.6 - 10.4 mg/dL [facility] [place] [facility] Blood Venous blood specimen / Unknown 03/28/2024 10:27 AM EST 03/28/2024 10:28 AM EST Narrative [facility] - 03/31/2024 2:27 PM EST FASTING:NO FASTING: NO Omar Ching MD LAB BLOOD ORDERABLES Final R esult Performing Organization Address City/[facility]/ZIP Co de Phone Number [facility] [address], [place] [address] [facility] [address] [place] [address] * Hm Colonoscopy (09/17/2023 2:17 PM EDT) us Not In System Provider HEALTH MAINTENANCE Edited Result - Final * (ABNORMAL) Cologuard?? colon cancer screening (06/01/2023 9:00 AM EDT) Cologuard Result Positive( A) Negative 06/05/2023 10:05 AM EDT [facility] (CLIA #:[id number]) Comment: POSITIVE TEST RESULT. A positive Cologuard [...] (Tatianna Ochoa al, N Engl J Med 2014;370(14):8513-4564.) Cologuard may produce a false negative or false positive result (no colorectal cancer or precancerous polyp present at colonoscopy follow up). A negative Cologuard test result does not guarantee the absence of CRC or advanced adenoma (pre-cancer). The current Cologuard screening interval is every 3 years. ([place] [employer] and U.S. Multi-Society Task Force). Cologuard performance data in a 10,000 patient pivotal study using colonoscopy as the reference method can be accessed at the following location: www.The Filter.INFOGRAPHIQS/results. Additional description of the Cologuard test process, warnings and precautions can be found at www.cologcombionicrd.com. Stool specimen (specimen) Rectal contents / Unknown 06/01/2023 9:00 AM EDT 06/02/2023 10:52 AM EDT [facility] LAB MOLECULAR DIAGNOSTICS ORDERABLES Final Result Performing Organization Address [facility] de Phone Number [facility] (CLIA #:[id number]) [place] [address], * Hepatitis C Antibody with Reflex to HCV RNA,PCR w/Reflex to Genotype, LiPA (04/01/2023 11:58 AM EST) Hepatitis C Antibody NON-REACT IRON NON-REACT IRON [facility] [place] [facility] Comment: HCV antibody was non-reactive. There is no laboratory evidence of HCV infection. In most cases, no further action is required. However, if recent HCV exposure is suspected, a test for HCV RNA (test code 94877) is suggested. For additional information, please refer to http://education.SmartRecruiters.INFOGRAPHIQS/faq/RHH880 (This link is being provided for informational/ educational purposes only.) 04/01/2023 11:5 8 AM EST 04/01/2023 12:03 PM EST [facility] LAB BLOOD ORDERABLES Final Result Performing Organization Address [facility] de Phone Number [facility] [address] [place] [address], [place] [address] [facility] [address] [place] [address] * CT Low Dose Screening (11/04/2022 9:06 AM EDT) Anatomical Region Laterality Modality Chest Computed Tomogra phy 11/04/2022 9:06 AM EDT Narrative 11/04/2022 10:[address] Chest LDCT Lung Program Reason: Other:; LDCT LUNG CANCER SCREENING PROGRAM, CURRENT SMOKER, 62 PK YR HX; Clinical Question(s): Other:; Special Instructions: BOOK AT [address] [place] [address] ??BOOK AFTER 10 08 2022 ??NO CHEST [...] lingular nodule, image 194, unchanged. OTHER FINDINGS: Monument Installer view findings, lines and tubes: None. Trachea [...] above. Categorization based on Lung-RADS 2022 criteria. [email or web address] WSN: [id number] Ordering Physician: Lenora Cabrera Dictated By: ?Mayuri Guerrero MD Dictated Date/Time: ?11/04/22 10:34 a Reviewed By: ?Mayuri Guerrero MD Signed By: ? Mayuri Guerrero MD Signed Date/Time: ? 11/04/22 10:34 am Transcribed By: ? CSB Transcribed Date/Time: ?11/04/22 10:18 am Procedure Note Donanushkater, Image - 11/04/2022 CT Chest LDCT Lung Program Reason: Other:; LDCT LUNG CANCER SCREENING PROGRAM, CURRENT SMOKER, 62 PKYR HX; Clinical Question(s): Other:; Special Instructions: BOOK AT [address] [place] [address]., [place], [place] BOOK AFTER 10 08 2022 NO CHEST [...] lingular nodule, image 194, unchanged. OTHER FINDINGS: Monument Installer view findings, lines and tubes: None. Trachea [...] above. Categorization based on Lung-RADS 2022 criteria. [email or web address] WSN: [id number] Ordering Physician: Lenora Cabrera Dictated By: Mayuri Guerrero MD Dictated Date/Time: 11/04/22 10:34 a Reviewed By: Mayuri Guerrero MD Signed By: Mayuri Guerrero MD Signed Date/Time: 11/04/22 10:34 am Transcribed By: MIGNON Transcribed Date/Time: 11/04/22 10:18 am Lenora Cabrera [facility] IM CT PROCEDURES Final Result from Last 3 Months or Most Recently Relevant to Health Maintenance [facility] MEDICARE ADVANTAGE HMO Care Teams Ingot Header Relationship Specialty Start Date End Date Suzy Delgado FNP [address] [place] [address] PCP - General Family Medicine 08/22/22 Vane Das [address] [place] [address] [facility] 09/29/22
--- OUTSIDE RECORDS SUMMARY | 2024-06-09 11:23 | XMS_ITS | Encounter Summary ---
Author Organization [employer] Address [address] [facility] 7t [place] [address] Care Team Providers Care Nursing Informatics Clinical Analyst Name Role Phone Suzy Delgado FILLING MACHINE TENDER Primary Care Provider +1- [phone] Vane Das Unavailable Reason for Visit * Reason Comments Med Refill Encounter Details Date Type Department Care Team (Late st Contact Info) Description 03/30/2024 Refill [facility] [address] [facility] [address] [place] [address] Armaan Garcia, [facility] [address] [place] [address] Other specified hypothyroidism Social History Tobacco Use [...] documented as of this encounter Care Teams Nursing Informatics Clinical Analyst Relationship Specialty Start Date End Date Suzy Delgado FNP 102 [place] [address] PCP - General Family Medicine 08/22/22 Vane Das 102 [place] [address] [facility] 09/29/22 documented as of this encounter
--- OUTSIDE RECORDS SUMMARY | 2024-06-09 11:23 | XMS_ITS | Encounter Summary ---
Author Organization [employer] Address [address] [facility] [address] 7t [place] [address] Care Team Providers Care Probation Counselor Name Role Phone Suzy Delgado KATHY Primary Care Provider +1- [phone] Vane Das Unavailable Encounter Details Date Type Department Care Team (Late st Contact Info) Description 09/17/2023 Orders Only [facility] [address] [place] [address] Provider, Not In System Social [...] on filedocumented in this encounter Care Teams Probation Counselor Relationship Specialty Start Date End Date Suzy Delgado FNP 102 [place] [address] PCP - General Family Medicine 08/22/22 Vane Das [address] [place] [address] [facility] 09/29/22 documented as of this encounter
--- OUTSIDE RECORDS SUMMARY | 2024-06-09 11:23 | XMS_ITS | Encounter Summary ---
Author Organization [employer] Address [address] [place] [address] 7t [place] [address] Care Team Providers Care Upper And Bottom Lacer Hand Name Role Phone Suzy Delgado Primary Care Provider +1- [phone] Vane Das Unavailable Encounter Details Date Type Department Care Team (Late st Contact Info) Description 04/06/2024 Orders Only [facility] 102 [place] [phone] Suzy Delgado FNP 102 [place], [place] [phone] Acute cystitis without hematuria (Primary Dx) Social [...] documented as of this encounter Care Teams Upper And Bottom Lacer Hand Relationship Specialty Start Date End Date Suzy Delgado FNP 102 [place] [address] PCP - General Family Medicine 08/22/22 Vane Das 102 [place] [address] [facility] 09/29/22 documented as of this encounter
--- OUTSIDE RECORDS SUMMARY | 2024-06-09 11:23 | XMS_ITS | Encounter Summary ---
Author Organization [employer] Address [address] [facility] [address] 7t [place] [address] Care Team Providers Care Cabinetmaker Helper Name Role Phone Suzy Delgado Primary Care Provider +1- [phone] Vane Das Unavailable Encounter Details Date Type Department Care Team (Late st Contact Info) Description 03/30/[address] [place] [address] Suzy Delgado FNP 102 [place] [address] Social History Tobacco Use Types Packs/Day Years [...] have been put In. Call back # [phone] documented in this encounter Plan of Treatment Not on file documented as of this encounter Visit Diagnoses Not on filedocumented in this encounter Additional Health Concerns Assessment Noted Time PHQ-9 Depression Total Score: 4 10/16/19 24 9:49 AM EDT documented as of this encounter Care Teams Cabinetmaker Helper Relationship Specialty Start Date End Date Suzy Delgado FNP 102 [place] [address] PCP - General Family Medicine 08/22/22 Vane Das 102 [place] [address] [facility] 09/29/22 documented as of this encounter
--- OUTSIDE RECORDS SUMMARY | 2024-06-09 11:23 | XMS_ITS | Continuity of Care Document ---
Author Organization [facility] Address [address] [facility] [address] [place] [address] Phone Care Team Providers Care Skimmer Reverberatory Name Role Phone MARCIO MALHOTRA, KADIE Unavailable Unavaila ble Advance Directives Directive Yes / No Effective Date File Name No Information Encounters Encounter Description Practice Location Reason(s) For Visit Diagnoses Date Provider Providers Copied on Encounter [facility], [address] [place] [address] [address], [place], [place], [id number], tel:[phone] No Information 0 0 MARCIO ROME. [address] [facility], [address], [place], [place], [id number] . tel:[phone] Family History Family Member Type Diagnosis Age [...]
--- OUTSIDE RECORDS SUMMARY | 2024-06-09 11:23 | XMS_ITS | Encounter Summary ---
Author Organization [employer] Address [address] [facility] 7t [place] [address] Care Team Providers Care Delinquent Tax Collector Assistant Name Role Phone Suzy Delgado PROTOTYPE MODEL MAKER Primary Care Provider +1- [phone] Vane Das Unavailable Encounter Details Date Type Department Care Team ([facility] st Contact Info) Description 06/05/2023 Telephone [facility] 102 [place] [address] Suzy Delgado [facility] 102 [place], [place] [phone] Social History Tobacco Use Types Packs/Day Years [...] the past 12 months, has t he [employer], gas, oil or water company threatened to [...] Deny Medication Name: Praluent Inj 75mg/Ml GPI/NDC: [id number] Decision Notes: PRALUENT INJ 75MG/ML is denied [...] Pharmacy states alirocumab (Praluent) 75 MG/ML injection [[id number]] Requires Prior-Auth documented in this encounter Plan of Treatment Not on file documented as of this encounter Visit Diagnoses Not on filedocumented in this encounter Care Teams Delinquent Tax Collector Assistant Relationship Specialty Start Date End Date Suzy Delgado FNP 102 [place] [address] PCP - General Family Medicine 08/22/22 Vane Das 102 [place] [address] [facility] 09/29/22 documented as of this encounter
--- OUTSIDE RECORDS SUMMARY | 2024-06-09 11:23 | XMS_ITS | Encounter Summary ---
Author Organization [employer] Address [address] [facility] 7t [place] [address] Care Team Providers Care Property Appraiser Name Role Phone Suzy Delgado PIPE THREADING MACHINE OPERATOR Primary Care Provider +1- [phone] Vane Das Unavailable Reason for Visit * Reason Comments Med Refill Encounter Details Date Type Department Care Team (Late st Contact Info) Description 06/06/2024 Refill [facility] [address] [facility] [address] [place] [address] Armaan Garcia, [facility] 119 [place] [address] Other specified hypothyroidism Social History Tobacco Use [...] Miscellaneous Notes * Telephone Encounter - Suzy WarnerKATHY wilder - 06/07/2024 8:30 AM EDT Approved with 3 refills. * Telephone Encounter - Lenora Watkins - 06/06/2024 2:17 PM EDT PCP: KATHY Bolton Last in-person office visit: 04/29/2024 Lab Results Component Value Date BUN 15 03/28/2024 CREATININE 0.88 03/28/2024 EGFRCREATINI 92 06/20/2022 K 4.2 03/28/2024 TSH 16.52 (H) 04/08/2024 Assessment: [x] Protocol passed [] Lab due [] Appointment due Plan: [x] Please refill for 90 days [] Lab [] BMP [] TSH [] A1C [] Appointment due: No future appointments. Comments: documented in this encounter Plan of Treatment Not on file documented as of this encounter Visit Diagnoses Diagnosis Other specified hypothyroidism documented in this encounter Additional Health Concerns Assessment Noted Time PHQ-9 Depression Total Score: 4 10/16/19 24 9:49 AM EDT documented as of this encounter Care Teams Property Appraiser Relationship Specialty Start Date End Date Suzy Delgado FNP 102 [place] [address] PCP - General Family Medicine 08/22/22 Vane Das 102 [place] [address] [facility] 09/29/22 documented as of this encounter
--- OUTSIDE RECORDS SUMMARY | 2024-06-09 11:23 | XMS_ITS | Encounter Summary ---
Author Organization [employer] Address [address] [facility] 7t [place] [address] Care Team Providers Care Inside Upholsterer Name Role Phone Suzy Delgado [facility] Primary Care Provider +1- [phone] Vane Das Unavailable Encounter Details Date Type Department Care Team ([facility] st Contact Info) Description 09/23/2023 Telephone [facility] 102 [place] [address] Suzy Delgado [facility] 102 [place], [place] [phone] Social History Tobacco Use Types Packs/Day Years [...] the past 12 months, has t he [employer], gas, oil or water company threatened to [...] Comp / Auto: No Insurance: Name: Address: Sports Betting Manager's Name: Date of Injury: Phone Number: Fax Number: Claim Number Additional Comments: Patient thinks they have shingles. No HX of shingles. Has not tried OTC medications. documented in this encounter Plan of Treatment Not on file documented as of this encounter Visit Diagnoses Not on filedocumented in this encounter Care Teams Inside Upholsterer Relationship Specialty Start Date End Date Suzy Delgado FNP 102 [place] [address] PCP - General Family Medicine 08/22/22 Vane Das 102 [place] [address] [facility] 09/29/22 documented as of this encounter
--- OUTSIDE RECORDS SUMMARY | 2024-06-09 11:23 | XMS_ITS | Encounter Summary ---
Author Organization [employer] Address [address] [facility] 7t [place] [address] Care Team Providers Care Security System Installer Name Role Phone Suzy Delgado [facility] Primary Care Provider +1- [phone] Vane Das Unavailable Encounter Details Date Type Department Care Team ([facility] st Contact Info) Description 10/01/2023 Telephone [facility] 102 [place] [address] Suzy Delgado [facility] 102 [place], [place] [phone] Social History Tobacco Use Types Packs/Day Years [...] the past 12 months, has t he [employer], gas, oil or water company threatened to [...] PM EDT Verified Insurance: Yes Referral Office: [facility] pulmonology Diagnosis Code: ICD code R06.02 Number of Visits Needed:8 NPI# of Facility: NPI# of Provider being referred to:[id number] Phone #:[phone] Fax #: [phone] Office lvm on our machine this is the only info they provided documented in this encounter Plan of Treatment Not on file documented as of this encounter Visit Diagnoses Not on filedocumented in this encounter Care Teams Security System Installer Relationship Specialty Start Date End Date Suzy Delgado FNP 102 [place] [address] PCP - General Family Medicine 08/22/22 Vane Das 102 [place] [address] [facility] 09/29/22 documented as of this encounter
--- OUTSIDE RECORDS SUMMARY | 2024-06-09 11:23 | XMS_ITS | Encounter Summary ---
Author Organization [employer] Address [address] [facility] 7t [place] [address] Care Team Providers Care Gear Milling Machine Set Up Operator Name Role Phone Suzy Delgado [facility] Primary Care Provider +1- [phone] Vane Das Unavailable Encounter Details Date Type Department Care Team ([facility] st Contact Info) Description 10/09/2023 Telephone [facility] 102 [place] [address] Suzy Delgado [facility] 102 [place], [place] [address] Social History Tobacco Use Types Packs/Day Years [...] the past 12 months, has t he [employer], gas, oil or water company threatened to [...] on filedocumented in this encounter Care Teams Gear Milling Machine Set Up Operator Relationship Specialty Start Date End Date Suzy Delgado FNP [address] [place] [address] PCP - General Family Medicine 08/22/22 Vane Das [address] [place] [address] [facility] 09/29/22 documented as of this encounter
== END 2024-06-09 10:35 | disposition home or self-care (01) ==
LOC: HO.PMC 09:55
PROVIDERS: PCP Nurse Practitioner Women's Health; Visit Provider Anesthesiology
DX: M96.1 Postlaminectomy syndrome, not elsewhere classified (principal); M25.561 Pain in right knee; M25.562 Pain in left knee; G89.4 Chronic pain syndrome
CPT/HCPCS: 99213

== ENCOUNTER → 2024-06-09 09:55 | Outpatient (BNVA) | payer OTHER, SELFPAY | PROVIDERS: PCP Nurse Practitioner Women's Health; Visit Provider Anesthesiology | DX: M96.1 Postlaminectomy syndrome, not elsewhere classified (principal); M25.561 Pain in right knee; M25.562 Pain in left knee; G89.4 Chronic pain syndrome; Z96.89 Presence of other specified functional implants; Z79.899 Other long term (current) drug therapy | CPT/HCPCS: 99212 ==

== ENCOUNTER 2024-06-30 10:51 | Outpatient (AMB) | payer OTHER, SELFPAY ==
[2024-06-30 11:24] VITALS: BP 121/62; PULSE 93; O2SAT 97; BMI 35.5
--- NOTE | 2024-06-30 11:24 | MHC.OFFVIS ---
Vital Signs 06/30/24 11:24 Height 5 ft 7 in Weight 227 lb BMI 35.5 BP 121/62 Blood Pressure Location Rt brachial Position Sitting Pulse 93 Pulse Source Pulse Oximeter Pulse Oximetry (%) 97 Oxygen Delivery Method Room Air Intake Visit Reasons: ITDD Refill Radioisotope Technician Required: No Allergies codeine Allergy (Unknown, Verified 06/30/24 11:25) Unknown nabumetone Allergy (Unknown, Verified 06/30/24 11:25) unknown adhesive tape Allergy (Severe, Uncoded 06/30/24 11:25) Rash latex Allergy (Severe, Uncoded 06/30/24 11:25) Rash pollen Allergy (Unknown, Uncoded 06/30/24 11:25) Unknown Medication List - Last Reconciled 06/30/24 by Rebecca Garcia, REAL TIME OPERATOR alirocumab (Praluent Pen) mg subcut aripiprazole 5 mg PO DAILY cephalexin 1,000 mg (2 x 500 mg) PO Q8H 14 days cephalexin 1,000 mg (2 x 500 mg) PO TID 14 days dextroamphetamine-amphetamine 20 mg ER 1 cap PO QAM duloxetine 60 mg PO DAILY fluticasone propionate 220 mcg/actuation (Flovent HFA) inhalation levothyroxine 175 mcg PO DAILY lorazepam 2 tabs PO BID PRN naloxone 4 mg/actuation 4 mg intranasal Q2M 1 day oxycodone 5 mg PO Q8H PRN 8 days MDD 3 pills propranolol 20 mg PO BID PFSH Medical History Presence of intrathecal pump Sleep apnea Chronic pain syndrome Increased BMI Presence of intrathecal pump Back pain Hypothyroid GERD (gastroesophageal reflux disease) COPD (chronic obstructive pulmonary disease) Postlaminectomy syndrome Surgical History History of hip surgery History of hysterectomy Social History Patient Tobacco Use Status: Current everyday Tobacco user Tobacco use type: Cigarette Cigarette Packs Per Day: 1 Cigarettes Per Day: 20.0 Physical Exam Vital Signs: Last Vital Signs Pulse 93 06/30/24 11:24 BP 121/62 06/30/24 11:24 Pulse Ox 97 06/30/24 11:24 Oxygen Delivery Method Room Air 06/30/24 11:24 BMI result Body Mass Index 35.5 Assessment & Plan Assessment & Plan (1) Postlaminectomy syndrome: Code(s): M96.1 - Postlaminectomy syndrome, not elsewhere classified Category: Medical Plan: THE PATIENT CAME TODAY IN THE office FOR THE CHANGE OF THE MEDICATION IN her PAIN PUMP. The name and date of were verified and informed consent was obtained for the procedure. The pump was interrogated and the residual amount of fluid was found to be 24.0 mL. SHE WAS POSITIONED supine on the bed AND THE AREA OF THE INTRATHECAL PUMP WAS PREPPED WITH CHLORAPREP. The fenestrated drape was sterilely applied over the area of the pump. Sterile gloves were worn and of the aspiration system was assembled containing 2 in 22 gauge non-coring needle, the needle was connected to extension tubing which was connected to the 20 cc sterile syringe. The pain pump was palpated under the skin in the patient's left abdominal area. The needle was inserted through the skin and the central plug of the pain pump and fluid was aspirated. The clear fluid was going into the syringe the total amount of the fluid was 23.0 mL. After that a new batch of medication was obtained which was containing morphine 2 mg and bupivacaine 15 mg per mL. The admixture was made in two 20 cc syringes prepared by [facility] compounding pharmacy. The syringe was connected to the bacterial filter, and then connected to the extension tubing. After that the medication in the syringe was slowly instilled into the pump with aspirations at 35 , 25 and 10 and 5 cc sanchez. The programing of the pump left as it was before. Her next appointment is 03/31/2024. The next batch of the medication will remain the same and will contain morphine 2 mg and bupivacaine 15 milligrams/mL the patient receives continuous 0.7 mg of morphine with corresponding 5.258 mg of bupivacaine a day, she is also able to receive 0.0005 mg of morphine on demand with corresponding dose of bupivacaine twice a day. (2) Bilateral knee pain: Code(s): M25.561 - Pain in right knee; M25.562 - Pain in left knee Category: Medical Plan: Naloxone is prescribed for the potential respiratory depression on 10/01/2023 she filled it up that in 10/02/2023. Her pump is getting to the end of the life. We would need to replace the pump in April of 2024. We will schedule her for the procedure. - (3) Left knee pain: Code(s): M25.562 - Pain in left knee Category: Medical Plan: (4) Chronic pain syndrome: Code(s): G89.4 - Chronic pain syndrome Category: Medical Plan: Coding Level of Care Code Procedure Only Diagnoses Postlaminectomy syndrome M96.1 Bilateral knee pain M25.561; M25.562 Left knee pain M25.562 Chronic pain syndrome G89.4
--- OUTSIDE RECORDS SUMMARY | 2024-06-30 12:29 | XMS_ITS | Encounter Summary ---
Author Organization [employer] Address [address] [facility] 7t [place] [address] Care Team Providers Care Medical Biller Coder Name Role Phone Suzy Delgado [facility] Primary Care Provider +1- [phone] Vane Das Unavailable Encounter Details Date Type Department Care Team ([facility] st Contact Info) Description 06/05/[address] [facility] 102 [place] [address] [facility] [address] [place], [place] [phone] Social History Tobacco Use Types Packs/Day Years [...] the past 12 months, has t he [employer], gas, oil or water company threatened to [...] Deny Medication Name: Praluent Inj 75mg/Ml GPI/NDC: [id number] Decision Notes: PRALUENT INJ 75MG/ML is denied [...] Pharmacy states alirocumab (Praluent) 75 MG/ML injection [[id number]] Requires Prior-Auth documented in this encounter Plan of Treatment Upcoming Encounters Date Type Department Care Team (Late st Contact Info) Description 09/21/2024 10:00 AM EDT Office Visit [address] [address] Suzy Delgado FNP [address] [place] [address] documented as of this encounter Visit Diagnoses Not on filedocumented in this encounter Care Teams Medical Biller Coder Relationship Specialty Start Date End Date Suzy Delgado FNP 102 [place] [address] PCP - General Family Medicine 08/22/22 Vane Das 102 [place] [address] [facility] 09/29/22 documented as of this encounter
--- OUTSIDE RECORDS SUMMARY | 2024-06-30 12:29 | XMS_ITS | Encounter Summary ---
Author Organization [employer] [facility] Address [address] [place] [address] 7t [place] [address] Care Team Providers Care Secretary Of State Name Role Phone Lenora Cabrera Primary Care Provider Unavailab Lenora Cardenas Unavailable Unavailable Suzy Delgado Primary Care Provider +1- [phone] Vane Das Unavailable Vane Das Unavailable Encounter Details Date Type Department Care Team (Late st Contact Info) Description 01/20/[address] [phone] Lenora Cabrera FNP Social History Tobacco Use [...] as of this encounter Plan of Treatment Upcoming Encounters Date Type Department Care Team (Late st Contact Info) Description 09/21/2024 10:00 AM EDT Office Visit [address] [phone] Suzy Delgado FNP [address] [place] [address] documented as of this encounter Visit Diagnoses Not on filedocumented in this encounter Care Teams Secretary Of State Relationship Specialty Start Date End Date Lenora Cabrera FNP PCP - General Family Medicine 12/27/21 08/21/22 Suzy Delgado FNP [address] [place] [address] PCP - General Family Medicine 08/22/22 Lenora Cabrera FNP Family Medicine 12/27/21 09/14/22 Vane Das 102 [place] [address] 09/15/22 03/04/23 Vane Das [address] [place] [address] [facility] 09/29/22 documented as of this encounter
--- OUTSIDE RECORDS SUMMARY | 2024-06-30 12:29 | XMS_ITS | Encounter Summary ---
Author Organization [employer] Address [address] [place] [address] 7t [place] [address] Care Team Providers Care Accounts Payable Supervisor Name Role Phone Suzy Delgado Primary Care Provider +1- [phone] Vane Das Unavailable Encounter Details Date Type Department Care Team (Late st Contact Info) Description 04/06/2024 Orders Only [facility] 102 [place] [phone] Suzy Delgado FNP 102 [place], [place] [phone] Acute cystitis without hematuria (Primary Dx) Social [...] Description 09/21/2024 10:00 AM EDT Office Visit [address] [address] Suzy Delgado FNP 102 [place] [address] documented as of this encounter Visit Diagnoses Diagnosis Acute cystitis without hematuria- Primary documented in this encounter Additional Health Concerns Assessment Noted Time PHQ-9 Depression Total Score: 4 10/16/19 24 9:49 AM EDT documented as of this encounter Care Teams Accounts Payable Supervisor Relationship Specialty Start Date End Date Suzy Delgado FNP 102 [place] [address] PCP - General Family Medicine 08/22/22 Vane Das 102 [place] [address] [facility] 09/29/22 documented as of this encounter
--- OUTSIDE RECORDS SUMMARY | 2024-06-30 12:29 | XMS_ITS | Encounter Summary ---
Author Organization [facility] Address [address] [place] [address] 7t [place] [address] Care Team Providers Care Coupon Collection Clerk Name Role Phone Lenora Cabrera Primary Care Provider Unavailab Lenora Cardenas Unavailable Unavailable Suzy Delgado Primary Care Provider +1- [phone] Vane Das Unavailable Vane Das Unavailable Encounter Details Date Type Department Care Team (Late st Contact Info) Description 06/25/[address] [address] Lenora Cabrera FNP Social History [...] Encounters Date Type Department Care Team (Late Contact Info) Description 09/21/2024 10:00 AM EDT Office Visit [address] [address] Suzy Delgado FNP 102 [place] [address] documented as of this encounter Visit Diagnoses Not on filedocumented in this encounter Care Teams Coupon Collection Clerk Relationship Specialty Start Date End Date Lenora Cabrera FNP PCP - General Family Medicine 12/27/21 08/21/22 Suzy Delgado FNP [address] [place] [address] PCP - General Family Medicine 08/22/22 Lenora Cabrera FNP Family Medicine 12/27/21 09/14/22 Vane Das [address] [place] [address] 09/15/22 03/04/23 Vane Das [address] [place] [address] [facility] 09/29/22 documented as of this encounter
--- OUTSIDE RECORDS SUMMARY | 2024-06-30 12:29 | XMS_ITS | Encounter Summary ---
Author Organization [employer] Address [address] [facility] [address] 7t [place] [address] Care Team Providers Care Horse Racer Name Role Phone Suzy Delgado Primary Care Provider +1- [phone] Vane Das Unavailable Encounter Details Date Type Department Care Team (Late st Contact Info) Description 06/03/2023 Telephone [facility] [address] [facility] [address] [place] [address] Suzy Delgado FNP 102 [place] [address] Social History Tobacco Use Types Packs/Day Years [...] the past 12 months, has t he [employer], gas, oil or water company threatened to [...] Description 09/21/2024 10:00 AM EDT Office Visit [facility] 102 [place] [address] Suzy Delgado FNP 102 [place] [address] documented as of this encounter Visit Diagnoses Not on filedocumented in this encounter Care Teams Horse Racer Relationship Specialty Start Date End Date Suzy Delgado FNP 102 [place] [address] PCP - General Family Medicine 08/22/22 Vane Das 102 [place] [address] [facility] 09/29/22 documented as of this encounter
--- OUTSIDE RECORDS SUMMARY | 2024-06-30 12:29 | XMS_ITS | Continuity of Care Document ---
Author Organization [facility] Address [address] [place] [address] Phone Care Team Providers Care Customs Guard Name Role Phone MARCIO MALHOTRA, KADIE Unavailable Unavaila ble Advance Directives Directive Yes / No Effective Date File Name No Information Encounters Encounter Description Practice Location Reason(s) For Visit Diagnoses Date Provider Providers Copied on Encounter [facility], [address] [place] [address] [address], [place], [place], [id number], tel:[phone] No Information 0 0 MARCIO ROME. [address] [facility], [address], [place], [place], [id number] . tel:[phone] Family History Family Member Type Diagnosis Age [...]
--- OUTSIDE RECORDS SUMMARY | 2024-06-30 12:29 | XMS_ITS | Encounter Summary ---
Author Organization [employer] Address [address] [facility] 7t [place] [address] Care Team Providers Care Parts Counterperson Name Role Phone Sandy Suzy TEACHER ADVISOR Primary Care Provider +1- [phone] Vane Das Unavailable Encounter Details Date Type Department Care Team ([facility] st Contact Info) Description 04/15/2023 Abstract [facility] 102 [place] [phone] Suzy Delgado TEACHER ADVISOR 102 [place], [place] [phone] Social History Tobacco Use Types Packs/Day Years [...] Description 09/21/2024 10:00 AM EDT Office Visit [facility] 102 [place] [address] Suzy Delgado FNP 102 [place] [address] documented as of this encounter Visit Diagnoses Not on filedocumented in this encounter Care Teams Parts Counterperson Relationship Specialty Start Date End Date Suzy Delgado FNP 102 [place] [address] PCP - General Family Medicine 08/22/22 Vane Das 102 [place] [address] [facility] 09/29/22 documented as of this encounter
--- OUTSIDE RECORDS SUMMARY | 2024-06-30 12:30 | XMS_ITS | Clinical Summary ---
Author Organization [facility] ity Address [address] [place] [address] Care Team Providers Care Farmworker Livestock Name Role Phone Lucien Costa MD Primary Care Provider [phone] Social History Tobacco Use Types Packs/Day Years [...] age to complete this topic Care Teams Farmworker Livestock Relationship Specialty Start Date End Date Lucien Costa MD [address] [place] [address] PCP - General Family Medicine 07/07/17
--- OUTSIDE RECORDS SUMMARY | 2024-06-30 12:30 | XMS_ITS | Encounter Summary ---
Author Organization [employer] Address [address] [place] [address] 7t [place] [address] Care Team Providers Care Videotape Operator Name Role Phone Suzy Delgado FIRE REGULATOR Primary Care Provider +1- [phone] Vnae Das Unavailable Encounter Details Date Type Department Care Team ([facility] st Contact Info) Description 05/05/2024 Telephone [facility] 102 [place] [address] Suzy Delgado [facility] 102 [place], [place] [id number] Social History Tobacco Use Types Packs/Day Years [...] Notes * Telephone Encounter - Suzy Delgado FIRE REGULATOR - 05/09/2024 12:52 PM EDT I called [...] 05/06/2024 9:13 AM EST Attempted to reach [facility] at number provided, office not open, no opportunity to leave a message * Telephone Encounter - Lin Dodson - 05/05/2024 11:38 AM EST In provider inbox for completion * Telephone Encounter - Nuria Morillo - 05/05/2024 10:23 AM EST Pt has brought in a document from [facility], Chronic Condition Release of Info, she'd like pcp to complete and sign as soon as possible. As it is for an upcoming surgery. See media. Physical copy left in pcp Mail box. When completed, pt would like a call at #[phone] documented in this encounter Plan of Treatment Upcoming Encounters Date Type Department Care Team (Late st Contact Info) Description 09/21/2024 10:00 AM EDT Office Visit [address] [address] Suzy Delgado FNP [address] [place] [address] documented as of this encounter Visit Diagnoses Not on filedocumented in this encounter Additional Health Concerns Assessment Noted Time PHQ-9 Depression Total Score: 4 10/16/19 24 9:49 AM EDT documented as of this encounter Care Teams Videotape Operator Relationship Specialty Start Date End Date Suzy Delgado FNP 102 [place] [address] PCP - General Family Medicine 08/22/22 Vane Das 102 [place] [address] [facility] 09/29/22 documented as of this encounter
--- OUTSIDE RECORDS SUMMARY | 2024-06-30 12:30 | XMS_ITS | Encounter Summary ---
Author Organization [employer] Address [address] 7t [place] [address] Care Team Providers Care Organizational Research Consultant Name Role Phone Suzy Delgado Primary Care Provider +1- [phone] Vane Das Unavailable Encounter Details Date Type Department Care Team (Late st Contact Info) Description 03/30/[address] [place] [address] Suzy Delgado FNP 102 [place] [address] Social History Tobacco Use Types Packs/Day Years [...] have been put In. Call back # [phone] documented in this encounter Plan of Treatment Upcoming Encounters Date Type Department Care Team (Late st Contact Info) Description 09/21/2024 10:00 AM EDT Office Visit [address] [address] Suzy Delgado FNP 102 [place] [address] documented as of this encounter Visit Diagnoses Not on filedocumented in this encounter Additional Health Concerns Assessment Noted Time PHQ-9 Depression Total Score: 4 10/16/19 24 9:49 AM EDT documented as of this encounter Care Teams Organizational Research Consultant Relationship Specialty Start Date End Date Suzy Delgado FNP 102 [place] [address] PCP - General Family Medicine 08/22/22 Vane Das 102 [place] [address] [facility] 09/29/22 documented as of this encounter
--- OUTSIDE RECORDS SUMMARY | 2024-06-30 12:30 | XMS_ITS | Encounter Summary ---
Author Organization [employer] Address [address] [facility] 7t [place] [address] Care Team Providers Care Biological Technician Name Role Phone Suzy Delgado [facility] Primary Care Provider +1- [phone] Vane Das Unavailable Encounter Details Date Type Department Care Team ([facility] st Contact Info) Description 09/23/2023 Telephone [facility] 102 [place] [address] Suzy Delgado [facility] 102 [place], [place] [phone] Social History Tobacco Use Types Packs/Day Years [...] the past 12 months, has t he [employer], gas, oil or water company threatened to [...] Comp / Auto: No Insurance: Name: Address: Outside Contractor Sales's Name: Date of Injury: Phone Number: Fax Number: Claim Number Additional Comments: Patient thinks they have shingles. No HX of shingles. Has not tried OTC medications. documented in this encounter Plan of Treatment Upcoming Encounters Date Type Department Care Team (Late st Contact Info) Description 09/21/2024 10:00 AM EDT Office Visit [facility] [address] [place] [address] Suzy Delgado FNP 102 [place] [address] documented as of this encounter Visit Diagnoses Not on filedocumented in this encounter Care Teams Biological Technician Relationship Specialty Start Date End Date Suzy Delgado FNP 102 [place] [address] PCP - General Family Medicine 08/22/22 Vane Das 102 [place] [address] [facility] 09/29/22 documented as of this encounter
--- OUTSIDE RECORDS SUMMARY | 2024-06-30 12:30 | XMS_ITS | Encounter Summary ---
Author Organization [employer] Address [address] 7t [place] [address] Care Team Providers Care [facility] Attendant Name Role Phone Suzy Delgado KATHY Primary Care Provider +1- [phone] Vane Das Unavailable Encounter Details Date Type Department Care Team (Late st Contact Info) Description 09/17/2023 Orders Only [facility] 119 [place] [address] Provider, Not In System Social [...] Description 09/21/2024 10:00 AM EDT Office Visit [facility] [address] [place] [phone] Suzy Delgado FNP 102 [place] [address] documented as of this encounter Procedures Procedure Name Priority Date/Time Associated Diagnosis Comments COLONOSCOPY Routine 09/17/2023 2:17 PM EDT documented in this encounter Results * Hm Colonoscopy (09/17/2023 2:17 PM EDT) us Not In System Provider HEALTH MAINTENANCE Edited Result - Final documented in this encounter Visit Diagnoses Not on filedocumented in this encounter Care Teams [facility] Attendant Relationship Specialty Start Date End Date Suzy Delgado FNP 102 [place] [address] PCP - General Family Medicine 08/22/22 Vane Das 102 [place] [address] [facility] 09/29/22 documented as of this encounter
--- OUTSIDE RECORDS SUMMARY | 2024-06-30 12:30 | XMS_ITS | Encounter Summary ---
Author Organization [employer] Address [address] [facility] 7t [place] [address] Care Team Providers Care Stockroom Helper Name Role Phone Suzy Delgado FARMWORKER FIELD CROP Primary Care Provider +1- [phone] Vane Das Unavailable Reason for Visit * Reason Comments Med Refill Encounter Details Date Type Department Care Team (Late st Contact Info) Description 03/30/2024 Refill [facility] [address] [facility] [address] [place] [address] Armaan Garcia, [facility] 119 [place] [address] Other specified hypothyroidism Social History Tobacco Use [...] Description 09/21/2024 10:00 AM EDT Office Visit [facility] [address] [place] [address] Suzy Delgado FNP 102 [place] [address] documented as of this encounter Visit Diagnoses Diagnosis Other specified hypothyroidism documented in this encounter Additional Health Concerns Assessment Noted Time PHQ-9 Depression Total Score: 4 10/16/19 24 9:49 AM EDT documented as of this encounter Care Teams Stockroom Helper Relationship Specialty Start Date End Date Suzy Delgado FNP [address] [place] [address] PCP - General Family Medicine 08/22/22 Vane Das [address] [place] [address] [facility] 09/29/22 documented as of this encounter
--- OUTSIDE RECORDS SUMMARY | 2024-06-30 12:30 | XMS_ITS | Clinical Summary ---
Author Organization [employer] Address [address] [facility] 7t [place] [address] Care Team Providers Care Freelance Digital Project Manager Name Role Phone Suzy Delgado KATHY Primary Care Provider +1- [phone] Vane Das Unavailable Allergies Active Allergy Reactions [...] D, (D2,D3), LC/MS/MS is recommended: order code 10441 (patients >2yrs). See Note 1 Note 1 For additional information, please refer to http://education.Quickfilter Technologies.Bioquimica/faq/YYM425 (This link is being provided for informational/ educational purposes only.) Start vitamin D supplement now. Assessment & Plan (09/15/2022 10:18 AM EDT): Vitamin D,25-OH Date Value Ref Range Status 06/20/2022 12.2 (L) (20-50) NG/ML Final Comment: Testing performed or reported by [facility], a Service of [facility], [address] [place] [address] Tab Mcdermott MD, Side Hemmer [facility]# [id number] Start vit D3 supplement now. Repeat labs [...] Final Comment: Testing performed or reported by [facility], a Service of [facility], [address] [place] [address] Tab Mcdermott MD, Side Hemmer [facility]# [id number] Advised reduce levothyroxine to 200 mcg daily. [...] pump in refilled every 3 months at [facility] [place], followed by Dr. Mcmanus. She reports no complications related to the pump, except for leg edema for that she takes lasix averaging once a week. Assessment & Plan (09/15/2022 10:16 AM EDT): Chronic pain, stable. Currently managed with indwelling morphine pump, managed by pain specialist at [facility]. 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; SOB (shortness of breath); Nicotine dependence, uncomplicated, unspecified nicotine product type 04/28/2024 Travel 04/23/[address] [address] Suzy Delgado FNP Vitamin D deficiency; Chronic obstructive bronchitis ([facility]/HCC) 04/23/2024 Refill [facility] [address] [address] Armaan Garcia DNP Other specified hypothyroidism 04/15/[address] [phone] Suzy Delgado FNP 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 Body cramps r/t macrobid) from Last 3 Months Immunizations Name Administration [...] 04/06/2023 8:48 AM EST Plan of Treatment Upcoming Encounters Date Type Department Care Team ([facility] st Contact Info) Description 09/21/2024 10:00 AM EDT Office Visit [facility] [address] [place] [phone] Suzy Delgado SUPERVISORY FORESTER [address] [place] [address] Health Maintenance Due Date Last Done Comments [...] 04/08/2024 1 1:33 AM EST Acquired hypothyroidism HM COLONOSCOPY Routine 09/17/2023 2:17 PM EDT [...] T3 Uptake 33 22 - 35 % [facility] [place] [facility] T4 (Thyroxine), Total 11.2 5.1 - 11.9 mcg/dL [employer] [place] [facility] Free T4 Index (T7) 3.7 1.4 - 3.8 [facility] True [facility] Blood Venous blood specimen / Unknown 05/03/2024 8:16 AM EST 05/03/2024 8:16 AM EST Narrative [facility] - 05/03/2024 9:31 PM EST FASTING:YES FASTING: YES us Ele Jara [facility] BLOOD ORDERABLES Final Resul t [facility] [address], [place] [address] [employer] [place] [facility] 200 [place] [address] * (ABNORMAL) Lipid Panel, Standard (05/03/2024 8:16 AM EST) Cholesterol, Total 182 <200 mg/dL [employer] [place] [facility] HDL Cholesterol 59 > OR = 50 mg/dL [employer] [place] [facility] Triglycerides 127 <150 mg/dL [employer] [place] [facility] LDL Cholesterol 101(H) mg/dL [facility] [employer] [place] [facility] Comment: Reference range: <100 Desirable range <100 mg/dL for primary prevention; ?? <70 mg/dL for patients with CHD or diabetic patients with > or = 2 CHD risk factors. LDL-C is now calculated using the Suzi calculation, which is a validated novel method providing better accuracy than the Friedewald equation in the estimation of LDL-C. Mart SS et al. DEQUAN. 2013;310(19): 6075-6490 (http://education.ZenMate/faq/COE378) Chol/HDLC Ratio 3.1 <5.0 (calc) [employer] [place] [facility] Non-HDL Cholesterol 123 <130 mg/dL [employer] [place] [facility] Comment: For patients with diabetes plus 1 major ASCVD risk factor, treating to a non-HDL-C goal of <100 mg/dL (LDL-C of <70 mg/dL) is considered a therapeutic option. 05/03/2024 8:16 AM EST 05/03/2024 8:16 AM EST Narrative [facility] - 05/03/2024 9:31 PM EST FASTING:YES FASTING: YES Ele Jara [facility] BLOOD ORDERABLES Final Resul t [facility] [address], [place] [address] [employer] [place] [facility] 200 [place] [address] * (ABNORMAL) TSH with Reflex to Free T4 (04/08/2024 11:33 AM EST) TSH w/Reflex to FT4 16.52(H) 0.40 - 4.50 mIU/L [employer] [place] [facility] Blood 04/08/2024 11:3 3 AM EST 04/08/2024 11:33 AM EST Narrative [facility] - 04/09/2024 1:48 AM EST FASTING:NO FASTING: NO us Ele Jara [facility] BLOOD ORDERABLES Final Resul t Performing Organization Address [facility] Co de Phone Number [address], [place] [address] [employer] [place] [facility] [address] [place] [phone] * T4, Free (04/08/2024 11:33 AM EST) T4, Free 1.3 0.8 - 1.8 ng/dL [employer] [place] [facility] 04/08/2024 11:3 3 AM EST 04/08/2024 11:33 AM EST Narrative [facility] - 04/09/2024 1:48 AM EST FASTING:NO FASTING: NO us Ele Jara [facility] BLOOD ORDERABLES Final Resul t Performing Organization Address [facility] Co de Phone Number [address], [place] [address] [employer] [place] [facility] [address] [place] [phone] * Hm Colonoscopy (09/17/2023 2:17 PM EDT) Not In System Provider HEALTH MAINTENANCE Edited Result - Final * (ABNORMAL) Cologuard?? colon cancer screening (06/01/2023 9:00 AM EDT) Cologuard Result Positive( A) Negative 06/05/2023 10:05 AM EDT [facility] (CLIA #:[id number]) Comment: POSITIVE TEST RESULT. A positive Cologuard [...] (Tatianna Ochoa al, N Engl J Med 2014;370(14):4001-8619.) Cologuard may produce a false negative or false positive result (no colorectal cancer or precancerous polyp present at colonoscopy follow up). A negative Cologuard test result does not guarantee the absence of CRC or advanced adenoma (pre-cancer). The current Cologuard screening interval is every 3 years. ([place] [employer] Society and U.S. Multi-Society Task Force). Cologuard performance data in a 10,000 patient pivotal study using colonoscopy as the reference method can be accessed at the following location: www.Badongo.com/results. Additional description of the Cologuard test process, warnings and precautions can be found at www.CypherWorXrd.com. Stool specimen (specimen) Rectal contents / Unknown 06/01/2023 9:00 AM EDT 06/02/2023 10:52 AM EDT Suzy Delgado [facility] MOLECULAR DIAGNOSTICS ORDERABLES Final Result [facility] (CLIA #:[id number]) [place] [address], * Hepatitis C Antibody with Reflex to HCV RNA,PCR w/Reflex to Genotype, LiPA (04/01/2023 11:58 AM EST) Hepatitis C Antibody NON-REACT IRON NON-REACT IRON [facility] Comment: HCV antibody was non-reactive. There is no laboratory evidence of HCV infection. In most cases, no further action is required. However, if recent HCV exposure is suspected, a test for HCV RNA (test code 96795) is suggested. For additional information, please refer to http://education.ZenMate/faq/QRX924 (This link is being provided for informational/ educational purposes only.) 04/01/2023 11:5 8 AM EST 04/01/2023 12:03 PM EST Suzy Goldmanjenniferjose [facility] BLOOD ORDERABLES Final Result [facility] [address], [place] [address] [employer] [place] [facility] 200 [place] [address] * CT Low Dose Screening (11/04/2022 9:06 AM EDT) Anatomical Region Laterality Modality Chest Computed Tomogra phy 11/04/2022 9:06 AM EDT Narrative 11/04/2022 10:[address] Chest LDCT Lung Program Reason: Other:; LDCT LUNG CANCER SCREENING PROGRAM, CURRENT SMOKER, 62 PK YR HX; Clinical Question(s): Other:; Special Instructions: BOOK AT [address] [place] [address] ??BOOK AFTER 10 08 2022 ??NO CHEST [...] lingular nodule, image 194, unchanged. OTHER FINDINGS: Tube Molder Fiberglass view findings, lines and tubes: None. Trachea [...] above. Categorization based on Lung-RADS 2022 criteria. [email or web address] WSN: [id number] Ordering Physician: Lenora Cabrera Dictated By: ?Mayuri Guerrero MD Dictated Date/Time: ?11/04/22 10:34 a Reviewed By: ?Mayuri Guerrero MD Signed By: ? Mayuri Guerrero MD Signed Date/Time: ? 11/04/22 10:34 am Transcribed By: ? CSB Transcribed Date/Time: ?11/04/22 10:18 am Procedure Note Calin, Image - 11/04/2022 CT Chest LDCT Lung Program Reason: Other:; LDCT LUNG CANCER SCREENING PROGRAM, CURRENT SMOKER, 62 PKYR HX; Clinical Question(s): Other:; Special Instructions: BOOK AT [address] [place] [address]., CHEPE ESCOBAR BOOK AFTER [address] IN THE LAST 12 MONTHSNO LUNG CA OR SIGNS AND SYMPTOMS OF LUNG CA Visit type: Annual screening TECHNIQUE: Low-dose helical CT of the chest without IV contrast (AdultLung Cancer Screening) protocol was performed. Coronal reformats [...] lingular nodule, image 194, unchanged. OTHER FINDINGS: Tube Molder Fiberglass view findings, lines and tubes: None. Trachea [...] above. Categorization based on Lung-RADS 2022 criteria. [email or web address] WSN: [id number] Ordering Physician: Lenora Cabrera Dictated By: Mayuri Guerrero MD Dictated Date/Time: 11/04/22 10:34 a Reviewed By: Mayuri Guerrero MD Signed By: Mayuri Guerrero MD Signed Date/Time: 11/04/22 10:34 am Transcribed By: MIGNON Transcribed Date/Time: 11/04/22 10:18 am Lenora Cabrera SUPERVISORY FORESTER IMG CT PROCEDURES Final Result from Last 3 Months or Most Recently Relevant to Health Maintenance Insurance [facility] MEDICARE [facility] MEDICARE ADVANTAGE HMO Care Teams Freelance Digital Project Manager Relationship Specialty Start Date End Date Suzy Delgado FNP 102 [place] [address] PCP - General Family Medicine 08/22/22 Vane Dsa 102 [place] [address] [facility] 09/29/22
--- OUTSIDE RECORDS SUMMARY | 2024-06-30 12:30 | XMS_ITS | Encounter Summary ---
Author Organization [employer] Address [address] [facility] 7t [place] [address] Care Team Providers Care Beef Grader Name Role Phone Suzy Delgado [facility] Primary Care Provider +1- [phone] Vane Das Unavailable Encounter Details Date Type Department Care Team ([facility] st Contact Info) Description 10/09/2023 Telephone [facility] 102 [place] [address] Suzy Delgado [facility] 102 [place], [place] [phone] Social History Tobacco Use Types Packs/Day Years [...] the past 12 months, has t he [employer], gas, oil or water company threatened to [...] Upcoming Encounters Date Type Department Care Team ([facility] st Contact Info) Description 09/21/2024 10:00 AM EDT Office Visit [address] [address] Suzy Delgado FNP 102 [place] [address] documented as of this encounter Visit Diagnoses Not on filedocumented in this encounter Care Teams Beef Grader Relationship Specialty Start Date End Date Suzy Delgado FNP [address] [place] [address] PCP - General Family Medicine 08/22/22 Vane Das 102 [place] [address] [facility] 09/29/22 documented as of this encounter
--- OUTSIDE RECORDS SUMMARY | 2024-06-30 12:30 | XMS_ITS | Encounter Summary ---
Author Organization [employer] Address [address] [facility] 7t [place] [address] Care Team Providers Care Mobile Solutions Architect Name Role Phone Suzy Delgado [facility] Primary Care Provider +1- [phone] Vane Das Unavailable Encounter Details Date Type Department Care Team ([facility] st Contact Info) Description 10/01/[address] [facility] [address] [place] [address] Suzy Delgado [facility] [address] [place], [place] [phone] Social History Tobacco Use Types Packs/Day Years [...] the past 12 months, has t he [employer], gas, oil or water company threatened to [...] PM EDT Verified Insurance: Yes Referral Office: [facility] pulmonology Diagnosis Code: ICD code R06.02 Number of Visits Needed:8 NPI# of Facility: NPI# of Provider being referred to:[id number] Phone #:[phone] Fax #: [phone] Office lvm on our machine this is the only info they provided documented in this encounter Plan of Treatment Upcoming Encounters Date Type Department Care Team (Late st Contact Info) Description 09/21/2024 10:00 AM EDT Office [facility] [address] [place] [address] Suzy Delgado FNP [address] [place] [address] documented as of this encounter Visit Diagnoses Not on filedocumented in this encounter Care Teams Mobile Solutions Architect Relationship Specialty Start Date End Date Suzy Delgado FNP [address] [place] [address] PCP - General Family Medicine 08/22/22 Vane Das [address] [place] [address] [facility] 09/29/22 documented as of this encounter
--- OUTSIDE RECORDS SUMMARY | 2024-06-30 12:30 | XMS_ITS | Encounter Summary ---
Author Organization [employer] Address [address] [facility] [address] 7t [place] [address] Care Team Providers Care Crusher Feeder Name Role Phone Suzy Delgado KATHY Primary Care Provider +1- [phone] Vane Das Unavailable Encounter Details Date Type Department Care Team (Late st Contact Info) Description 09/21/2023 Orders Only [facility] [address] [place] [address] Provider, Not In System Social [...] Description 09/21/2024 10:00 AM EDT Office Visit [facility] [address] [place] [phone] Suzy Delgado FNP [address] [place] [address] documented as of this encounter Procedures Procedure Name Priority Date/Time Associated Diagnosis Comments SURGICAL PATHOLOGY Routine 09/17/2023 1:54 PM EDT documented in this encounter Results * Surgical Pathology (09/17/2023 1:54 PM EDT) us Not In System Provider LAB PATHOLOGY ORDERABLES Edited Result - Final documented in this encounter Visit Diagnoses Not on filedocumented in this encounter Care Teams Crusher Feeder Relationship Specialty Start Date End Date Suzy Delgado FNP [address] [place] [address] PCP - General Family Medicine 08/22/22 Vane Das [address] [place] [address] [facility] 09/29/22 documented as of this encounter
== END 2024-06-30 11:35 | disposition home or self-care (01) ==
PROVIDERS: PCP Nurse Practitioner Women's Health; Visit Provider Anesthesiology
DX: Z45.1 Encounter for adjustment and management of infusion pump (principal); G89.4 Chronic pain syndrome; M96.1 Postlaminectomy syndrome, not elsewhere classified; M25.561 Pain in right knee; M25.562 Pain in left knee
CPT/HCPCS: 95991

== ENCOUNTER → 2024-06-30 10:51 | Outpatient (BNVA) | payer OTHER, SELFPAY | PROVIDERS: PCP Nurse Practitioner Women's Health; Visit Provider Anesthesiology ==

== ENCOUNTER 2024-09-15 11:22 | Outpatient (AMB) | payer OTHER, SELFPAY ==
[2024-09-15 11:44] VITALS: BP 134/62; PULSE 86; RESP 18; O2SAT 93
--- NOTE | 2024-09-15 11:44 | MHC.OFFVIS ---
Vital Signs 09/15/24 11:44 Height 5 ft 10 in BP 134/62 Blood Pressure Location Lt brachial Position Sitting Respiration 18 Pulse 86 Pulse Source Pulse Oximeter Pulse Oximetry (%) 93 Oxygen Delivery Method Room Air Intake Visit Reasons: ITDD PUMP Refill Hemstitching Machine Operator Required: No Allergies codeine Allergy (Unknown, Verified 09/15/24 11:42) Unknown nabumetone Allergy (Unknown, Verified 09/15/24 11:42) unknown adhesive tape Allergy (Severe, Uncoded 06/30/24 11:25) Rash latex Allergy (Severe, Uncoded 06/30/24 11:25) Rash pollen Allergy (Unknown, Uncoded 06/30/24 11:25) Unknown [facility] Medical History Presence of intrathecal pump Sleep apnea Chronic pain syndrome Increased BMI Presence of intrathecal pump Back pain Hypothyroid GERD (gastroesophageal reflux disease) COPD (chronic obstructive pulmonary disease) Postlaminectomy syndrome Surgical History History of hip surgery History of hysterectomy Social History Patient Tobacco Use Status: Current everyday Tobacco user Tobacco use type: Cigarette Cigarette Packs Per Day: 1 Cigarettes Per Day: 20.0 Physical Exam Vital Signs: Last Vital Signs Pulse 86 09/15/24 11:44 Resp 18 09/15/24 11:44 BP 134/62 09/15/24 11:44 Pulse Ox 93 09/15/24 11:44 Oxygen Delivery Method Room Air 09/15/24 11:44 Assessment & Plan Assessment & Plan (1) Postlaminectomy syndrome: Code(s): M96.1 - Postlaminectomy syndrome, not elsewhere classified Category: Medical Plan: THE PATIENT CAME TODAY IN THE office FOR THE CHANGE OF THE MEDICATION IN her PAIN PUMP. The name and date of were verified and informed consent was obtained for the procedure. The pump was interrogated and the residual amount of fluid was found to be 4.1 mL. SHE WAS POSITIONED supine on the bed AND THE AREA OF THE INTRATHECAL PUMP WAS PREPPED WITH CHLORAPREP. The fenestrated drape was sterilely applied over the area of the pump. Sterile gloves were worn and of the aspiration system was assembled containing 2 in 22 gauge non-coring needle, the needle was connected to extension tubing which was connected to the 20 cc sterile syringe. The pain pump was palpated under the skin in the patient's left abdominal area. The needle was inserted through the skin and the central plug of the pain pump and fluid was aspirated. The clear fluid was going into the syringe the total amount of the fluid was 4.3 mL. After that a new batch of medication was obtained which was containing morphine 2 mg and bupivacaine 15 mg per mL. The admixture was made in two 20 cc syringes prepared by [facility] compounding pharmacy. The syringe was connected to the bacterial filter, and then connected to the extension tubing. After that the medication in the syringe was slowly instilled into the pump with aspirations at 35 , 25 and 10 and 5 cc sanchez. The programing of the pump left as it was before. Her next appointment is 12/01/2024 The next batch of the medication will remain the same and will contain morphine 2 mg and bupivacaine 15 milligrams/mL the patient receives continuous 0.7 mg of morphine with corresponding 5.258 mg of bupivacaine a day, she is also able to receive 0.0005 mg of morphine on demand with corresponding dose of bupivacaine twice a day. (2) Bilateral knee pain: Code(s): M25.561 - Pain in right knee; M25.562 - Pain in left knee Category: Medical Plan: Naloxone is prescribed for the potential respiratory depression on 10/01/2023 she filled it up that in 10/02/2023. Her pump is getting to the end of the life. We would need to replace the pump in April of 2024. We will schedule her for the procedure. - (3) Left knee pain: Code(s): M25.562 - Pain in left knee Category: Medical Plan: (4) Chronic pain syndrome: Code(s): G89.4 - Chronic pain syndrome Category: Medical Plan: Coding Level of Care Code Procedure Only Diagnoses Postlaminectomy syndrome M96.1 Bilateral knee pain M25.561; M25.562 Left knee pain M25.562 Chronic pain syndrome G89.4
--- OUTSIDE RECORDS SUMMARY | 2024-09-15 12:12 | XMS_ITS | Clinical Summary ---
Author Organization [facility] ity Address [address] [place] [address] Care Team Providers Care Hotel Night Auditor Name Role Phone Lucien Costa MD Primary Care Provider [phone] Social History Tobacco Use Types Packs/Day Years [...] Vaccines (1 of 2) 01/22/2008 COVID-19 Vaccine (1 - 2023-2 5 season) 2023 Depression Screening 03/02/2024 Influenza Vaccine (#1) 2024 RSV Immunization Adult Patie nts (1 [...] age to complete this topic Care Teams Hotel Night Auditor Relationship Specialty Start Date End Date Lucien Costa MD [address] [place] [phone] PCP - General Family Medicine 07/07/17
--- OUTSIDE RECORDS SUMMARY | 2024-09-15 12:12 | XMS_ITS | Encounter Summary ---
Author Organization [employer] Address [address] [facility] 7t [place] [address] Care Team Providers Care Manager Distribution Name Role Phone Suzy Delgado FEDERAL MEDIATOR Primary Care Provider [phone]- [phone] Vane Das Unavailable Encounter Details Date Type Department Care Team ([facility] st Contact Info) Description 04/15/[address] [facility] [address] [place] [address] Suzy Delgado FNP [address] [place], [place] [phone] Social History Tobacco Use Types Packs/Day Years [...] 09/21/2024 10:00 AM EDT Office Visit [facility] [address] [place] [address] Suzy Delgado FNP [address] [place] [address] documented as of this encounter Visit Diagnoses Not on filedocumented in this encounter Care Teams Manager Distribution Relationship Specialty Start Date End Date Suzy Delgado FNP [address] [place] [address] PCP - General Family Medicine 08/22/22 Vane Das [address] [place] [address] [facility] 09/29/22 documented as of this encounter
== END 2024-09-15 12:10 | disposition home or self-care (01) ==
LOC: HO.PMC 11:23
PROVIDERS: PCP Nurse Practitioner Women's Health; Visit Provider Anesthesiology
DX: Z45.1 Encounter for adjustment and management of infusion pump (principal); M25.561 Pain in right knee; M25.562 Pain in left knee; M96.1 Postlaminectomy syndrome, not elsewhere classified; G89.4 Chronic pain syndrome
CPT/HCPCS: 95991

== ENCOUNTER 2024-12-01 11:20 | Outpatient (AMB) | payer MEDICARE, MEDICAID, SELFPAY ==
--- NOTE | 2024-12-01 11:29 | A.OFFVIS_ITS ---
Vital Signs 12/01/24 11:30 Weight 230 lb BP 131/67 Blood Pressure Location Lt brachial Position Sitting Respiration 18 Pulse 100 Pulse Source Pulse Oximeter Pulse Oximetry (%) 98 Oxygen Delivery Method Room Air Intake Visit Reasons: ITDD PUMP Refill Director Emergency Services Required: No Allergies codeine Allergy (Unknown, Verified 12/01/24 11:29) Unknown nabumetone Allergy (Unknown, Verified 12/01/24 11:29) unknown adhesive tape Allergy (Severe, Uncoded 06/30/24 11:25) Rash latex Allergy (Severe, Uncoded 06/30/24 11:25) Rash pollen Allergy (Unknown, Uncoded 06/30/24 11:25) Unknown [facility] Medical History Presence of intrathecal pump Sleep apnea Chronic pain syndrome Increased BMI Presence of intrathecal pump Back pain Hypothyroid GERD (gastroesophageal reflux disease) COPD (chronic obstructive pulmonary disease) Postlaminectomy syndrome Surgical History History of hip surgery History of hysterectomy Social History Patient Tobacco Use Status: Current everyday Tobacco user Tobacco use type: Cigarette Cigarette Packs Per Day: 1 Cigarettes Per Day: 20.0 Physical Exam Vital Signs: Last Vital Signs Pulse 100 12/01/24 11:30 Resp 18 12/01/24 11:30 BP 131/67 12/01/24 11:30 Pulse Ox 98 12/01/24 11:30 Oxygen Delivery Method Room Air 12/01/24 11:30 Assessment & Plan Assessment & Plan (1) Postlaminectomy syndrome: Code(s): M96.1 - Postlaminectomy syndrome, not elsewhere classified Category: Medical Plan: THE PATIENT CAME TODAY IN THE office FOR THE CHANGE OF THE MEDICATION IN her PAIN PUMP. The name and date of were verified and informed consent was obtained for the procedure. The pump was interrogated and the residual amount of fluid was found to be 4.3 mL. SHE WAS POSITIONED supine on the bed AND THE AREA OF THE INTRATHECAL PUMP WAS PREPPED WITH CHLORAPREP. The fenestrated drape was sterilely applied over the area of the pump. Sterile gloves were worn and of the aspiration system was assembled containing 2 in 22 gauge non-coring needle, the needle was connected to extension tubing which was connected to the 20 cc sterile syringe. The pain pump was palpated under the skin in the patient's left abdominal area. The needle was inserted through the skin and the central plug of the pain pump and fluid was aspirated. The clear fluid was going into the syringe the total amount of the fluid was 5.0 mL. After that a new batch of medication was obtained which was containing morphine 2 mg and bupivacaine 15 mg per mL. The admixture was made in two 20 cc syringes prepared by [facility] compounding pharmacy. The syringe was connected to the bacterial filter, and then connected to the extension tubing. After that the medication in the syringe was slowly instilled into the pump with aspirations at 35 , 25 and 10 and 5 cc sanchez. The programing of the pump left as it was before. Her next appointment is02/22/2025, the meds concentrations will stay as prior in 40 mL preservative-free normal saline divided between 2 20 cc syringes. The next batch of the medication will remain the same and will contain morphine 2 mg and bupivacaine 15 milligrams/mL the patient receives continuous 0.7 mg of morphine with corresponding 5.258 mg of bupivacaine a day, she is also able to receive 0.0005 mg of morphine on demand with corresponding dose of bupivacaine twice a day. (2) Bilateral knee pain: Code(s): M25.561 - Pain in right knee; M25.562 - Pain in left knee Category: Medical Plan: Naloxone is prescribed for the potential respiratory depression on 10/01/2023 she filled it up that in 10/02/2023. Her pump is getting to the end of the life. We would need to replace the pump in April of 2024. We will schedule her for the procedure. - (3) Left knee pain: Code(s): M25.562 - Pain in left knee Category: Medical Plan: (4) Chronic pain syndrome: Code(s): G89.4 - Chronic pain syndrome Category: Medical Plan: Coding Level of Care Code Procedure Only Diagnoses Postlaminectomy syndrome M96.1 Bilateral knee pain M25.561; M25.562 Left knee pain M25.562 Chronic pain syndrome G89.4
[2024-12-01 11:30] VITALS: BP 131/67; PULSE 100; RESP 18; O2SAT 98
--- OUTSIDE RECORDS SUMMARY | 2024-12-01 13:13 | XMS_ITS | Encounter Summary ---
Author Organization [employer] Address [address] [facility] 7t [place] [address] Care Team Providers Care Podiatric Surgeon Name Role Phone Suzy Delgado ELEVATOR OPERATOR FREIGHT Primary Care Provider [phone]- [phone] Vane Das Unavailable Tesfaye Barr MD Unavailable [phone] Encounter Details Date Type Department Care Team ([facility] st Contact Info) Description 06/05/[address] [address] Suzy Delgado FNP [address] [place], [place] [id number] Social History Tobacco Use Types Packs/Day Years [...] the past 12 months, has t he [employer], gas, oil or water [employer] threatened to shut off services in your [...] Chio Mccollum - 06/08/2023 1:14 PM EDT DIANE DENIED. FORWARDED DENIAL TO PROVIDER Patient Name: Danielle Starkey Patient : 1960 Status of Request: Deny Medication Name: Praluent Inj 75mg/Ml GPI/NDC: [id number] Decision Notes: PRALUENT INJ 75MG/ML is denied [...] Pharmacy states alirocumab (Praluent) 75 MG/ML injection [[id number]] Requires Prior-Auth documented in this encounter Plan of Treatment Not on file documented as of this encounter Visit Diagnoses Not on filedocumented in this encounter Care Teams Podiatric Surgeon Relationship Specialty Start Date End Date Suzy Delgado FNP [address] [place] [address] PCP - General Family Medicine 08/22/22 Vane Das [address] [place] [address] [facility] 09/29/22 Tesfaye Barr MD [address] [place] [address] Pulmonary Disease 09/19/24 documented as of this encounter
--- OUTSIDE RECORDS SUMMARY | 2024-12-01 13:13 | XMS_ITS | Encounter Summary ---
Author Organization [employer] Address [address] [facility] [address] 7[address] [place] [address] Care Team Providers Care Erp Developer Name Role Phone Suzy Delgado KATHY Primary Care Provider [phone]- [phone] Vane Das Unavailable Tesfaye Barr MD Unavailable +1 [phone] Encounter Details Date Type Department Care Team (Late st Contact Info) Description 11/16/[address] [facility] Information Management [address] [place] [address] Provider, Not In System Social History Tobacco [...] the past 12 months, has t he [employer], gas, oil or water [employer] threatened to shut off services in your [...] Procedure Name Priority Date/Time Associated Diagnosis Comments PULMONARY FUNCTION TESTING Routine 11/09/2024 1:44 PM EDT documented in this encounter Results * Pulmonary function testing (11/09/2024 1:44 PM EDT) us Not In System Provider PFT ORDERABLES Edited Re sult - Final documented in this encounter Visit Diagnoses Not on filedocumented in this encounter Additional Health Concerns Assessment Noted Time PHQ-9 Depression Total Score: 4 10/16/19 24 9:49 AM EDT documented as of this encounter Care Teams Erp Developer Relationship Specialty Start Date End Date Suzy Delgado FNP [address] [place] [address] PCP - General Family Medicine 08/22/22 Vane Das [address] [place] [address] [facility] 09/29/22 Tesfaye Barr MD [address] [place] [address] Pulmonary Disease 09/19/24 documented as of this encounter
--- OUTSIDE RECORDS SUMMARY | 2024-12-01 13:13 | XMS_ITS | Encounter Summary ---
Author Organization [facility] Address [address] [facility] [address] [place] [address] Phone Care Team Providers Care Broadcast Checker Name Role Phone Suzy Delgado FISH FILLETER Primary Care Provid er Encounter Details Date Type Department Care Team (Late st Contact Info) Description 09/17/2023 Procedure Pass [facility] Admitting Dept Virtual Department [address] [place] [address] Social History Tobacco Use Types Packs/Day Years Used Date Smoking Tobacco: Every Day Cigarettes Smokeless Tobacco: Never Comments:Smoke and vapes jack ly Alcohol Use Standard Drinks/Week Comments Not Currently 0 (1 standard drink = 0.6 oz pur e alcohol) Education Answer Date Recorded Are you interested in more education? Not on hugo e 06/27/2022 Are you concerned about learning? Not on file 06/27/2022 No 06/27/2022 No 06/27/2022 Digital Access Answer Date Recorded No 07/27/2022 No 07/27/2022 Reliable internet access at home? Not on file 07/27/2022 Device with a working camera? Not on file Intimate Partner Violence Answer Date R ecorded Are you denied basic needs s uch as food, clothing, or medical care? No 09/17/2023 In the past 12 months have y ou been in a relationship with a person who hurts, threatens, or tries to control you? No 09/17/2023 Are you denied basic needs s uch as food, clothing, or medical care? No 09/17/2023 In the past 12 months have y ou been in a relationship with a person who hurts, threatens, or tries to control you? No 09/17/2023 Comments No Sex and Gender Information Value Date Recorded Sex Assigned at Not on file Legal Sex Female 3:20 PM EDT Gender Identity Not on file Sexual Orientation Not on file documented as of this encounter Plan of Treatment Not on file documented as of this encounter Visit Diagnoses Not on filedocumented in this encounter Care Teams Broadcast Checker Relationship Specialty Start Date End Date Suzy Delgado FNP [address] [place] [address] PCP - General Nurse Practitioner 09/15/23 documented as of this encounter Additional Source Comments The information contained in this document represents components of the legal health record. It is not the complete legal health record.[facility]
--- OUTSIDE RECORDS SUMMARY | 2024-12-01 13:13 | XMS_ITS | Encounter Summary ---
Author Organization [facility] Address [address] [facility] [address] [place] [address] Phone Care Team Providers Care Pre Owned Sales Manager Name Role Phone Suzy Delgado BOILER INSTALLER Primary Care Provid er Encounter Details Date Type Department Care Team (Late st Contact Info) Description 09/16/2023 Procedure Pass [facility]oscopy Admitting Dept Virtual Department [address] [place] [address] Social History Tobacco Use Types Packs/Day Years [...] on filedocumented in this encounter Care Teams Pre Owned Sales Manager Relationship Specialty Start Date End Date Suzy Delgado FNP [address] [place] [address] PCP - General Nurse Practitioner 09/15/23 documented as of this encounter Additional Source Comments The information contained in this document represents components of the legal health record. It is not the complete legal health record.[facility]
--- OUTSIDE RECORDS SUMMARY | 2024-12-01 13:13 | XMS_ITS | Encounter Summary ---
Author Organization [employer] Address [address] [facility] [address] 7[address] [place] [address] Care Team Providers Care Fine Arts Teacher Name Role Phone Lenora Cabrera Primary Care Provider Unavailab Lenora Cardenas Unavailable Unavailable Suzy Delgado Primary Care Provider +1- [phone] Vane Das Unavailable Vane Das Unavailable Tesfaye Barr MD Unavailable Encounter Details Date Type Department Care Team (Late st Contact Info) Description 06/25/[address] [address] Lenora Cabrera FNP Social History [...] on filedocumented in this encounter Care Teams Fine Arts Teacher Relationship Specialty Start Date End Date Lenora Cabrera FNP PCP - General Family Medicine 12/27/21 08/21/22 Suzy Delgado FNP [address] [place] [address] PCP - General Family Medicine 08/22/22 Lenora Cabrera FNP Family Medicine 12/27/21 09/14/22 Vane Das [address] [place] [address] 09/15/22 03/04/23 Vane Das [address] [place] [address] [facility] 09/29/22 Tesfaye Barr MD [address] [place] [address] Pulmonary Disease 09/19/24 documented as of this encounter
--- OUTSIDE RECORDS SUMMARY | 2024-12-01 13:13 | XMS_ITS | Encounter Summary ---
Author Organization [employer] Address [address] [facility] [address] [place] [address] Care Team Providers Care Healthcare Administrator Name Role Phone Suzy Delgado KATHY Primary Care Provider +1- [phone] Vane Das Unavailable Tesfaye Barr MD Unavailable +1 [phone] Encounter Details Date Type Department Care Team (Late st Contact Info) Description 11/09/2024 Orders Only [facility] Information Management [address] [place] [address] Provider, Not In System Social History Tobacco [...] the past 12 months, has t he [employer], gas, oil or water [employer] threatened to shut off services in your [...] Procedure Name Priority Date/Time Associated Diagnosis Comments HOME SLEEP TEST Routine 11/03/2024 11:02 AM EDT documented in this encounter Results * Home sleep test (11/03/2024 11:02 AM EDT) us Not In System Provider SLEEP CENTER ORDERABLES E dited Result - Final documented in this encounter Visit Diagnoses Not on filedocumented in this encounter Additional Health Concerns Assessment Noted Time PHQ-9 Depression Total Score: 4 10/16/19 24 9:49 AM EDT documented as of this encounter Care Teams Healthcare Administrator Relationship Specialty Start Date End Date Suzy Delgado FNP [address] [place] [address] PCP - General Family Medicine 08/22/22 Vane Das [address] [place] [address] [facility] 09/29/22 Tesfaye Barr MD [address] [place] [address] Pulmonary Disease 09/19/24 documented as of this encounter
--- OUTSIDE RECORDS SUMMARY | 2024-12-01 13:13 | XMS_ITS | Encounter Summary ---
Author Organization [facility] Address [address] [place] [phone] Phone Care Team Providers Care Intelligence Engineer Name Role Phone Raymond Cerna MD Primary Care Provider [phone] Suzy Delgado Primary Care Provid er Encounter Details Date Type Department Care Team (Latest Contact Info) Description 07/31/2023 Transcribe Orders Virtual Department [address] [place] [address] Suzy Delgado FNP [address] [place] [address] Breast screening (Primary Dx) Social History Tobacco Use Types Packs/Day Years Used Date Smoking Tobacco: Every Day Smokeless Tobacco: Never Alcohol Use Standard Drinks/Week Comments Not Currently [...] with a working camera? Not on file Comments Unknown Sex and Gender Information Value Date Recorded Sex Assigned at Not on file Legal Sex Female 3:20 PM EDT Gender Identity Not on file Sexual Orientation Not on file documented as of this encounter Plan of Treatment Not on file documented as of this encounter Visit Diagnoses Diagnosis Breast screening- Primary Breast screening, unspecified documented in this encounter Care Teams Intelligence Engineer Relationship Specialty Start Date End Date Raymond Cerna MD [address] [place] [address] PCP - General Internal Medicine 04/06/23 09/14/23 Suzy Delgado FNP [address] [place] [address] PCP - General Nurse Practitioner 09/15/23 documented as of this encounter Additional Source Comments The information contained in this document represents components of the legal health record. It is not the complete legal health record.[facility]
--- OUTSIDE RECORDS SUMMARY | 2024-12-01 13:13 | XMS_ITS | Encounter Summary ---
Author Organization [employer] Address [address] [facility] 7[address] [place] [address] Care Team Providers Care Automatic Developer Name Role Phone Suzy Delgado CIDER MAKER Primary Care Provider [phone] Vane Das Unavailable Tesfaye Barr MD Unavailable [phone] Encounter Details Date Type Department Care Team (Late st Contact Info) Description 04/06/2024 Orders Only [facility] [address] [place] [phone] Suzy Delgado FNP [address] [place], [place] [id number] Acute cystitis without hematuria (Primary Dx) Social [...] documented as of this encounter Care Teams Automatic Developer Relationship Specialty Start Date End Date Suzy Delgado FNP [address] [place] [address] PCP - General Family Medicine 08/22/22 Vane Das [address] [place] [address] [facility] 09/29/22 Tesfaye Barr MD [address] [place] [address] Pulmonary Disease 09/19/24 documented as of this encounter
--- OUTSIDE RECORDS SUMMARY | 2024-12-01 13:13 | XMS_ITS | Encounter Summary ---
Author Organization [employer] Address [address] [address] [facility] [address] [place] [address] Care Team Providers Care Home Hospice Aide Name Role Phone Tongjose Suzy DIE SIZER Primary Care Provider [phone] Vane Das Unavailable Tesfaye Barr MD Unavailable [phone] Encounter Details Date Type Department Care Team (Late st Contact Info) Description 04/15/2023 Abstract [facility] [address] [place] [phone] Suzy Delgado FNP [address] [place], [place] [phone] Social History Tobacco Use Types Packs/Day Years [...] on filedocumented in this encounter Care Teams Home Hospice Aide Relationship Specialty Start Date End Date Suzy Delgado FNP [address] [place] [address] PCP - General Family Medicine 08/22/22 Vane Das [address] [place] [address] [facility] 09/29/22 Tesfaye Barr MD [address] [place] [address] Pulmonary Disease 09/19/24 documented as of this encounter
--- OUTSIDE RECORDS SUMMARY | 2024-12-01 13:13 | XMS_ITS | Encounter Summary ---
Author Organization [facility] Address [address] [facility] [address] [place] [address] Phone Care Team Providers Care Dental Director Name Role Phone Suzy Delgado IN FLIGHT REFUELING SYSTEM REPAIRER Primary Care Provid er Encounter Details Date Type Department Care Team (Late st Contact Info) Description 09/15/2023 Procedure Pass [facility] Endoscopy Admitting Dept Virtual Department [address] [place] [address] Social History Tobacco Use Types Packs/Day Years [...] on filedocumented in this encounter Care Teams Dental Director Relationship Specialty Start Date End Date Suzy Delgado FNP [address] [place] [address] PCP - General Nurse Practitioner 09/15/23 documented as of this encounter Additional Source Comments The information contained in this document represents components of the legal health record. It is not the complete legal health record.[facility]
--- OUTSIDE RECORDS SUMMARY | 2024-12-01 13:14 | XMS_ITS | Encounter Summary ---
Author Organization [employer] Address [address] [facility] [address] [facility] [address] [place] [address] Care Team Providers Care Braddisher Name Role Phone Suzy Delgado KATHY Primary Care Provider [phone] Vane Das Unavailable Tesfaye Barr MD Unavailable [phone] Encounter Details Date Type Department Care Team (Late st Contact Info) Description 09/17/2023 Orders Only [facility] [address] [place] [address] Provider, Not In System Social History Tobacco [...] the past 12 months, has t he [email or web address], gas, oil or water company threatened to [...] Procedure Name Priority Date/Time Associated Diagnosis Comments HM COLONOSCOPY Routine 09/17/2023 2:17 PM EDT documented in this encounter Results * Hm Colonoscopy (09/17/2023 2:17 PM EDT) us Not In System Provider HEALTH MAINTENANCE Edited Result - Final documented in this encounter Visit Diagnoses Not on filedocumented in this encounter Care Teams Braddisher Relationship Specialty Start Date End Date Suzy Delgado FNP [address] [place] [address] PCP - General Family Medicine 08/22/22 Vane Das [address] [place] [address] [facility] 09/29/22 Tesfaye Barr MD [address] [place] [address] Pulmonary Disease 09/19/24 documented as of this encounter
--- OUTSIDE RECORDS SUMMARY | 2024-12-01 13:14 | XMS_ITS | Encounter Summary ---
Author Organization [employer] Address [address] [facility] [address] [facility] [address] [address] [place] [address] Care Team Providers Care Quality Control Engineering Technician Name Role Phone Suzy Delgado KATHY Primary Care Provider [phone] Vane Das Unavailable Tesfaye Barr MD Unavailable [phone] Reason for Visit * Reason Comments Med Refill Encounter Details Date Type Department Care Team (Late st Contact Info) Description 03/30/2024 Refill [facility] [address] [facility] [address] [place] [phone] Armaan Garcia, [facility] [address] [place] [address] Other specified hypothyroidism Social History Tobacco Use [...] documented as of this encounter Care Teams Quality Control Engineering Technician Relationship Specialty Start Date End Date Suzy Delgado FNP [address] [place] [address] PCP - General Family Medicine 08/22/22 Vane Das [address] [place] [address] [facility] 09/29/22 Tesfaye Barr MD [address] [place] [address] Pulmonary Disease 09/19/24 documented as of this encounter
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
--- OUTSIDE RECORDS SUMMARY | 2024-12-01 13:14 | XMS_ITS | Encounter Summary ---
Author Organization [facility] Address [address] [place] [phone] Phone Care Team Providers Care Drafting Instructor Name Role Phone Lucien Costa MD Primary Care Provider [phone] Lenora Cabrera NP Primary Care Provider Raymond Cerna MD Primary Care Provider [phone] Suzy DelgadoP Primary Care Provid er Encounter Details Date Type Department Care Team (Late st Contact Info) Description 04/16/2021 Ancillary Orders [facility],Outside Imaging [address] [place] [address] System, Provider Not In, [place] [address] Social History Tobacco Use Types Packs/Day Years Used Date Smoking Tobacco: Every Day Comments Unknown Sex and Gender Information Value Date Recorded Sex Assigned at Not on file Legal Sex Female 3:20 PM EDT Gender Identity Not on file Sexual Orientation Not on file documented as of this encounter Plan of Treatment Not on file documented as of this encounter Results * XR Lower Extremity Outside (No Interpretation) (10/01/2020 12:00 AM EDT) Narrative SYSTEMGENERATED, DOCUMENTATION - 04/16/2021 2:26 PM EST This study is for PACS storage only and not for interpretation. us Provider Not In System PhD IMG OUTSIDE IMAGING W /OUT INTERPRETATION Final Result documented in this encounter Visit Diagnoses Not on filedocumented in this encounter Care Teams Drafting Instructor Relationship Specialty Start Date End Date Lucien Costa MD [address] [place] [id number] [email or web address] PCP - General Family Medicine 11/08/13 04/25/21 Lenora Cabrera NP [address] [place] [address] PCP - General Family Medicine 04/26/21 04/05/23 Raymond Cerna MD [address] [place] [id number] PCP - General Internal Medicine 04/06/23 09/14/23 Suzy Delgado FNP [address] [place] [phone] PCP - General Nurse Practitioner 09/15/23 documented as of this encounter Additional Source Comments The information contained in this document represents components of the legal health record. It is not the complete legal health record.[facility]
--- OUTSIDE RECORDS SUMMARY | 2024-12-01 13:14 | XMS_ITS | Encounter Summary ---
Author Organization [employer] Address [address] [facility] 7t [place] [address] Care Team Providers Care Hostess Party Sales Representative Name Role Phone Sandy Suzy MIXING MACHINE TENDER CORK GASKET Primary Care Provider [phone] Vane Das Unavailable Tesfaye Barr MD Unavailable [phone] Encounter Details Date Type Department Care Team ([facility] st Contact Info) Description 09/08/[address] [address] Suzy Delgado FNP [address] [place], [place] [phone] Social History Tobacco Use Types Packs/Day Years [...] encounter Miscellaneous Notes * Telephone Encounter - Rehana Maravilla LPN - 09/08/2024 9:47 AM EDT Noted * Telephone Encounter - Kirasandra Perduekathleen - 09/08/2024 9:20 AM EDT Symptoms: Coughing with shortness of breath , sore throat , headache , weakness Are you in pain: No How long has this been happening: x 3 days Location of pain: upper respiratory Chronic or Acute: Acute Were you discharged from a hospital for this issue: No When: Which Hospital: Accident Related: No Workers Comp / Auto: No Insurance: Name: Address: Consulting Technical Manager's Name: Date of Injury: Phone Number: Fax Number: Claim Number Additional Comments: Appointment made for today in [place] location for 420 with MK is the booked correctly . documented in this encounter Plan of Treatment Not on file documented as of this encounter Visit Diagnoses Not on filedocumented in this encounter Additional Health Concerns Assessment Noted Time PHQ-9 Depression Total Score: 4 10/16/19 9:49 AM EDT documented as of this encounter Care Teams Hostess Party Sales Representative Relationship Specialty Start Date End Date Suzy Delgado FNP [address] [place] [address] PCP - General Family Medicine 08/22/22 Vane Das [address] [place] [address] [facility] 09/29/22 Tesfaye Barr MD [address] [place] [address] Pulmonary Disease 09/19/24 documented as of this encounter
--- OUTSIDE RECORDS SUMMARY | 2024-12-01 13:14 | XMS_ITS | Encounter Summary ---
Author Organization [employer] Address [address] [place] [address] 7 [place] [address] Care Team Providers Care Picu Nurse Name Role Phone Lenora Cabrera Primary Care Provider Unavailab Lenora Cardenas Unavailable Unavailable Suzy Delgado Primary Care Provider [phone] Vane Das Unavailable Vane Das Unavailable Tesfaye Barr MD Unavailable Encounter Details Date Type Department Care Team (Late st Contact Info) Description 01/20/2022 Abstract [facility] [address] [place] [address] Lenora Cabrera FNP Social History Tobacco [...] on filedocumented in this encounter Care Teams Picu Nurse Relationship Specialty Start Date End Date Lenora Cabrera FNP PCP - General Family Medicine 12/27/21 08/21/22 Suzy Delgado FNP [address] [place] [address] PCP - General Family Medicine 08/22/22 Lenora Cabrera FNP Family Medicine 12/27/21 09/14/22 Vane Das [address] [place] [address] 09/15/22 03/04/[address] [address] [facility] 09/29/22 Tesfaye Barr MD [address] [place] [address] Pulmonary Disease 09/19/24 documented as of this encounter
--- OUTSIDE RECORDS SUMMARY | 2024-12-01 13:14 | XMS_ITS | Encounter Summary ---
Author Organization [facility] Address [address] [facility] [address] [place] [address] Phone Care Team Providers Care Straightener Hand Name Role Phone Raymond Cerna MD Primary Care Provider [phone] Suzy Delgado Primary Care Provid er Encounter Details Date Type Department Care Team (Late st Contact Info) Description 04/06/2023 Transcribe Orders Virtual Department [address] [place] [address] System, Provider Not In, [facility] [address] [address] Acute bilateral low back pain without sciatica (Primary Dx) Social History Tobacco Use Types [...] documented as of this encounter Results * US Kidneys (04/10/2023 11:20 AM EST) Anatomical Region Laterality Modality Abdomen, Kidney Ultrasound 04/10/2023 12:1 2 PM EST Impressions 04/10/2023 2:00 PM EST Normal sonographic appearance to the kidneys. Incidental demonstration of splenomegaly, uncertain clinical significance. Narrative 04/10/2023 2:00 PM EST US KIDNEYS Referring clinician's provided indication for this examination in Psychiatric: Outside Radiology Order; ACUTE BILATERAL LOW BACK PAIN WITHOUR SCIATICA Additional clinical information: History of UTI. TECHNIQUE: Kidney Ultrasound. COMPARISON: No prior renal, abdominal or pelvic imaging. FINDINGS: Kidneys are normal in size, shape and echogenicity bilaterally. No discernible mass, calculi or hydronephrosis. Right kidney measures 3.9 x 10.9 cm and left kidney measures 4.4 x 10.9 cm. Images of the urinary bladder show no focal abnormality. Ureteral jets not imaged. Incidental demonstration of splenomegaly. Spleen measures up to 14.6 cm. No focal abnormality. Procedure Note Saleem Niño MD - 04/10/2023 US KIDNEYS Referring clinician's provided indication for this examination in Psychiatric:Outside Radiology Order; ACUTE BILATERAL LOW BACK PAIN WITHOUR SCIATICA Additional clinical information: History of UTI. TECHNIQUE: Kidney Ultrasound. COMPARISON: No prior renal, abdominal or pelvic imaging. FINDINGS: Kidneys are normal in size, shape and echogenicity bilaterally. Nodiscernible mass, calculi or hydronephrosis. Right kidney measures 3.9 x10.9 cm and left kidney measures 4.4 x 10.9 cm. Images of the urinary bladder show no focal abnormality. Ureteral jets notimaged. Incidental demonstration of splenomegaly. Spleen measures up to 14.6 cm.No focal abnormality. IMPRESSION: Normal sonographic appearance to the kidneys. Incidental demonstration of splenomegaly, uncertain clinicalsignificance. us Provider Not In System PhD IMG US RENAL Final Result documented in this encounter Visit Diagnoses Diagnosis Acute bilateral low back pain without sciatica- Primary Acute bilateral low back pain without sciatica documented in this encounter Care Teams Straightener Hand Relationship Specialty Start Date End Date Raymond Cerna MD [address] [place] [id number] PCP - General Internal Medicine 04/06/23 09/14/23 Suzy Delgado FNP [address] [place] [address] PCP - General Nurse Practitioner 09/15/23 documented as of this encounter Additional Source Comments The information contained in this document represents components of the legal health record. It is not the complete legal health record.[facility]
--- OUTSIDE RECORDS SUMMARY | 2024-12-01 13:14 | XMS_ITS | Encounter Summary ---
Author Organization [employer] Address [address] [facility] [address] [place] [address] Care Team Providers Care Teaching Dietitian Name Role Phone Suzy Delgado KATHY Primary Care Provider [phone] Vane Das Unavailable Tesfaye Barr MD Unavailable [phone] Encounter Details Date Type Department Care Team (Late st Contact Info) Description 07/18/[address] [address] Betsy Henry Social History Tobacco Use Types Packs/Day Years [...] encounter Miscellaneous Notes * Telephone Encounter - Nitza Sanders LPN - 07/18/2024 3:50 PM EDT Deleting because it's a duplicate message. * Telephone Encounter - Betsy Henry - 07/18/2024 2:47 PM EDT Waiting for a call back still from nursing waiting for home health aid would like to confirm diagnosis code and discuss medications documented in this encounter Plan of Treatment Not on file documented as of this encounter Visit Diagnoses Not on filedocumented in this encounter Additional Health Concerns Assessment Noted Time PHQ-9 Depression Total Score: 4 10/16/19 24 9:49 AM EDT documented as of this encounter Care Teams Teaching Dietitian Relationship Specialty Start Date End Date Suzy Delgado FNP [address] [place] [address] PCP - General Family Medicine 08/22/22 Vane Das [address] [place] [address] [facility] 09/29/22 Tesfaye Barr MD [address] [place] [address] Pulmonary Disease 09/19/24 documented as of this encounter
--- OUTSIDE RECORDS SUMMARY | 2024-12-01 13:14 | XMS_ITS | Encounter Summary ---
Author Organization [facility] Address [address] [facility] [address] [place] [address] Phone Care Team Providers Care Jig Borer Name Role Phone Raymond Cerna MD Primary Care Provider [phone] Suzy Delgado Primary Care Provid er Encounter Details Date Type Department Care Team (Late st Contact Info) Description 04/13/2023 Procedure Pass [facility], Ct Scan - [address] [address] Social History Tobacco Use Types Packs/Day Years [...] on file documented as of this encounter Functional Status * Calculated C-SSRS Risk Score (Lifetime/Recent) Answer Date of Assessment Author No Risk Indicated 04/13/2023 2:01 PM Jeanette Baker RN * [place] Suicide Severity Rating Scale (Screener/Recent Self-Report) Question Answer Date of Assessment Author 1. Wish to be (Past 1 Month) No 024 2:01 PM Jeanette Baker RN 2. Non-Specific Active Suici kayla Thoughts (Past 1 Month) No 04/13/2023 2:01 PM Benigno Baker RN 6. Suicidal Behavior (Lifetime) No 4 2:01 PM Jeanette Baker RN documented as of this encounter Plan of Treatment Not on file documented as of this encounter Visit Diagnoses Not on filedocumented in this encounter Care Teams Jig Borer Relationship Specialty Start Date End Date Raymond Cerna MD [address] [place] [address] PCP - General Internal Medicine 04/06/23 09/14/23 Suzy Delgado FNP [address] [place] [address] PCP - General Nurse Practitioner 09/15/23 documented as of this encounter Additional Source Comments The information contained in this document represents components of the legal health record. It is not the complete legal health record.[facility]
--- OUTSIDE RECORDS SUMMARY | 2024-12-01 13:14 | XMS_ITS | Encounter Summary ---
Author Organization [employer] Address [address] [facility] [address] 7[address] [place] [address] Care Team Providers Care Gas And Oil Servicer Name Role Phone Suzy Delgado KATHY Primary Care Provider [phone] Vane Das Unavailable Tesfaye Barr MD Unavailable [phone] Encounter Details Date Type Department Care Team (Late st Contact Info) Description 09/21/2023 Orders Only [facility] Information Management [address] [place] [address] Provider, Not In System Social History Tobacco [...] on filedocumented in this encounter Care Teams Gas And Oil Servicer Relationship Specialty Start Date End Date Suzy Delgado FNP [address] [place] [address] PCP - General Family Medicine 08/22/22 Vane Das [address] [place] [address] [facility] 09/29/22 Tesfaye Barr MD [address] [place] [address] Pulmonary Disease 09/19/24 documented as of this encounter
--- OUTSIDE RECORDS SUMMARY | 2024-12-01 13:14 | XMS_ITS | Encounter Summary ---
Author Organization [facility] Address [address] [place] [address] Phone Care Team Providers Care Splicing Machine Operator Name Role Phone Raymond Cerna MD Primary Care Provider [phone] Suzy Delgado Primary Care Provid er Encounter Details Date Type Department Care Team (Late st Contact Info) Description 06/19/2023 Procedure Pass [facility] Endoscopy Admitting Dept Virtual Department [address] [place] [address] Social History Tobacco Use Types Packs/Day Years [...] on filedocumented in this encounter Care Teams Splicing Machine Operator Relationship Specialty Start Date End Date Raymond Cerna MD [address] [place] [address] PCP - General Internal Medicine 04/06/23 09/14/23 Suzy Delgado FNP [address] [place] [address] PCP - General Nurse Practitioner 09/15/23 documented as of this encounter Additional Source Comments The information contained in this document represents components of the legal health record. It is not the complete legal health record.[facility]
--- OUTSIDE RECORDS SUMMARY | 2024-12-01 13:14 | XMS_ITS | Clinical Summary ---
Author Organization [facility] Address [address] [place] [address] Phone Care Team Providers Care Tailor Men'S Ready To Wear Name Role Phone Ritu Delgado NATURAL GAS SHOTHOLE DRILLER Primary Care Provid er Allergies Active Allergy Reactions Criticality Noted Date Comments Adhesive Rash Low 04/07/2011 Use paper tape Use paper tape Codeine Swelling 02/01/2014 Ibuprofen Unknown Low 05/16/2019 Note: Due to Oxycodone pump Latex Rash 02/01/2014 Nabumetone 09/14/2023 Pollen Extracts 09/14/2023 Medications levothyroxine (SYNTHROID, LEVOTHROID) 150 MCG tablet SYNTHROID (LEVOTHYROXINE SODIUM) 150 MCG TABLET; Dose: 150 MCG; Form: Take 1 TABLET; Route: PO; Frequency: QD; Directions: Not available; Details: Dispense: Tablet(s); Taking; Status: Active; Source: RITU MOLINA; Date: 02/01/2014 4 Active FLOVENT HFA 220 mcg/actuation inhaler INHALE 1 PUFF BY MOUTH TWICE DAILY DIRECTED 2 Active DULoxetine (CYMBALTA) 60 MG capsule Take 120 mg by mouth daily. 2 Active albuterol 90 mcg/actuation inhaler Inhale 2 puffs into the lungs every 4 (four) hours as needed. 4 Active ARIPiprazole (ABILIFY) 5 MG tablet Take 5 mg by mouth daily. 4 Active cholecalciferol (VITAMIN D3) 2,000 unit tablet Take 50 mcg by mouth. 4 Active bupivacaine HCl (BUPIVACAINE INJ) Inject as directed. Internal pump for morphine & bupivacaine Active morphine sulfate (MORPHINE INJ) Inject as directed. Pump for morphine & bupivacaine Active dextroamphetami ne-amphetamine (ADDERALL XR) 20 MG 24 hr capsule Take 20 mg by mouth every morning. 4 Active Active Problems Problem Noted Date Diagnosed Date Shortness of breath 09/30/2023 Assessment & Plan (09/30/2023 3:58 PM EDT): Patient was referred for evaluation of shortness of breath in the context of carrying a diagnosis of chronic obstructive bronchitis , though, spirometry from 06/2023 did not demonstrate evidence of airflow limitation or postbronchodilator change. Thus, she does not have COPD at present. Clinically, her presentation is compatible with chronic bronchitis. This could be solely due to smoking but cannot rule out the possibility of underlying reactive airways disease such as asthma. She is also likely deconditioned. Just prior to initial pulmonary evaluation, she significantly cut down on the amount of cigarettes she is smoking and this has already improved her breathing. Additionally, she has been taking her ICS inhaler more regularly which has also been helpful. -Continue Arnuity 200 (ICS) -Albuterol as needed -Encourage absolute smoking cessation -Obtain full set of PFTs (inclusive of lung volumes, diffusion capacity) -Encourage exercise Chronic bronchitis 09/30/2023 Smoker 09/30/2023 Assessment & Plan (09/30/2023 3:52 PM EDT): Patient was educated on the risks of smoking and provided counseling to encourage smoking cessation. She is interested in quitting at this time. She was provided with the number for the [place] Smokers Helpline at 5-518-FQCO-NOW. She does not feel as though she needs nicotine replacement therapy or other medications at the present time. Approximately 10 minutes were spent in providing smoking cessation counseling. Encounter for screening for lung cancer 09/30/19 Assessment & Plan (09/30/2023 3:52 PM EDT): Lung cancer screening counseling and shared decision making were conducted at this visit. The patient meets eligibility criteria for age (50-80), smoking status (current or former), years quit (0-15), pack years (30 or more), and lack of signs/symptoms of lung cancer. The following were discussed: Benefits and harms of screening. Benefits: Possibility of earlier detection and treatment of lung cancer with increased chance for cure, peace of mind. Harms: False reassurance, radiation exposure, risk of false positives, overdiagnosis of indolent tumors, possible need for invasive testing, potential for anxiety. Willingness to undergo additional treatment/testing if findings warrant. The importance of continuing annual screening unless comorbidities preclude. The patient was counseled about tobacco cessation/abstinence. An order for low-dose CT lung cancer screening study was placed (to be performed on approximately 11/05/2023). Generalized anxiety disorder 12/24/2020 Osteoarthritis 04/24/2014 Overview (02/06/2015): Osteoarthritis; 54 yo woman c/o chronic left hip pain, failed conservative management. Hypothyroidism 04/24/2014 Overview (02/06/2015): Hypothyroidism Depression 04/24/2014 Overview (02/06/2015): Depression Tobacco use 04/24/2014 Overview (02/06/2015): Tobacco user; 1/2 ppd x 35 years Spinal stenosis 04/24/2014 Overview (02/06/2015): Spinal stenosis; chronic back since 1995, s/p spinal cord stimulator in the , previously also on high dose fentanyl patch, and oral morphine, wheelchair bound, now back pain is well controlled with morphine through a intrathecal pump in past 3-4 years, the pump in refilled every [address] [facility], followed by Dr. Mcmanus. She reports no complications related to the pump, except for leg edema for that she takes lasix averaging once a week. Constipation 04/24/2014 Overview (02/06/2015): Constipation; chrnoic, moves bowels every 3 days Peripheral edema 04/24/2014 Overview (02/06/2015): Peripheral edema; on lasix once a week, no h/o liver or heart disease Obesity 04/24/2014 Overview (02/06/2015): Obesity; BMI 36 Lumbar spondylosis 12/19/2010 Back pain 08/07/2010 Sleep apnea 12/03/2005 Overview (09/16/2023): Last Assessment & Plan: Central and obstructive sleep apnea, untreated, declines referral today. Hyperlipidemia 12/01/2005 Social History Tobacco Use Types Packs/Day Years Used Date Smoking Tobacco: Every Day Cigarettes Smokeless Tobacco: Never Tobacco Cessation:Ready to Q uit: Not Asked; Counseling Given: Not Answered Comments:Smoke and vapes daily Alcohol Use Standard Drinks/Week Comments Not Currently [...] on file Sexual Orientation Not on file Last Filed Vital Signs Vital Sign Reading Time Taken Comments Blood Pressure 118/62 09/30/2023 3:05 PM EDT Pulse 83 09/30/2023 3:05 PM EDT Temperature 36 C (96.8 F) 09/17/2023 10:22 AM EDT Respiratory Rate 17 09/17/2023 10:30 AM EDT Oxygen Saturation 96% 09/30/2023 3:05 PM EDT Inhaled Oxygen Concentration - - Weight 94.8 kg (209 lb) 09/30/2023 3:05 PM EDT Height 177.8 cm (5' 10 ) 04/13/2023 2:00 PM EST Body Mass Index 29.99 04/13/2023 2:00 PM EST Plan of Treatment Health Maintenance Due Date Last Done Comments TSH LEVEL 1960 DEPRESSION SCREENING 1970 SMOKING Hx and SMOKELESS TOBACCO SCREENING 1971 HEPATITIS C SCREENING 01/22/1976 COLOGUARD 2003 FIT TEST 2003 FOBT 2003 SIGMOIDOSCOPY 2003 VIRTUAL COLONOSCOPY 2003 PNEUMOCOCCAL VACCINES (50+ years) (2 of 2 - PCV) 2012 01/20/2011 MAMMOGRAM 04/29/2019 04/29/2017, 06/2014, 12/27/2014 OSTEOPOROSIS SCREENING INITIAL (ONE-TIME) 2023 ZOSTER VACCINES (2 of 2) 11/22/2023 09/27/2023 Adult Td,Tdap Booster 02/09/2024 02/08/2014 INFLUENZA VACCINE (#1) 2024 , 12/23/2021, 12/30/2017, Additional history exists COVID-19 VACCINE ( season) 2024 12/23/2021, 03/13/2021, 06/22/2020, Additional history exists SCREENING FOR DIABETES 04/13/2026 04/13/2023 LIPID PANEL 04/01/2028 04/01/2023 RSV VACCINE (1 - 1-dose 75+ series) 2033 COLONOSCOPY 09/16/2033 09/17/2023 COLORECTAL CANCER SCREENING 09/16/2033 HEPATITIS A VACCINES Aged Out No long er eligible based on patient's age to complete this topic HIB VACCINES Aged Out No longer eligi ble based on patient's age to complete this topic MENINGOCOCCAL VACCINES (ACWY) Aged Out No longer eligible based on patient's age to complete this topic MENINGOCOCCAL VACCINES (B) Aged Out N o longer eligible based on patient's age to complete this topic Medical Devices Implanted Type Area Civil Litigation Attorney Device Identifier Shelf Expiration Date Model / Serial / Lot Prosthetic Joint Prosthetic Joint Left: Hip Morphine Pump Clip Hemostasis 16mm /5ea - [id number] Implanted:Qty : 1 on 09/17/2023 by Pinky Eastman MD at [facility] [id number] Description:Polyp site Procedures Procedure Name Priority Date/Time Associated Diagnosis Comments ENDOSCOPY, COLON 09/17/2023 9:32 AM EDT BI MAMMOGRAM OUTSIDE (NO INTERPRETATION) Routine 04/29/2017 12:00 AM EST from Last 3 Months or Most Recently Relevant to Health Maintenance Results * ENDOSCOPY, COLON (09/17/2023 9:32 AM EDT) Narrative Transcriptions Pinky Eastman MD, MPH - 09/17/2023 9:32 AM EDT [facility] Patient Name: Danielle Starkey Attending MD:: PINKY EASTMAN MD, Procedure Date: 09/17/2023 9:32 AM Date of : 1960 Age: 63 Admit Type: Outpatient Gender: Female Room: [facility] Referring MD: Ritu Delgado Exam Type: Colonoscopy Indications: Positive Cologuard test Medications: Monitored Anesthesia Care Procedure: Informed consent was obtained from the patientafter discussion of the indications, limitations, alternatives, benefits, and risks of the procedure. Risks specifically discussed include but are not limited to medication reactions, missed lesions, bleeding, perforation, or the need for emergent surgery. Throughout the procedure, the patient's blood pressure, pulse, end-tidal CO2, and oxygensaturations were monitored continuously. The Olympus adult variable colonoscope [id number] #2 was introduced through the anus and advanced to the cecum, identified by appendiceal orifice andileocecal valve. The colonoscopy was performed without difficulty. The patient tolerated the procedurewell. The quality of the bowel preparation was evaluated using the BBPS (Greene Bowel Preparation Scale)with scores of: Right Colon = 3 (entire mucosa seen well with no residual staining, small fragments of stoolor opaque liquid), Transverse Colon = 2 (minor amountof residual staining, small fragments of stool and/or opaque liquid, but mucosa seen well) and Left Colon= 2 (minor amount of residual staining, smallfragments of stool and/or opaque liquid, but mucosa seenwell). The total BBPS score equals 7. The ileocecal valve, appendiceal orifice, and rectum werephotographed. Complications: No immediate complications. Findings: The perianal and digital rectal examinations were normal. Two sessile polyps were found in the cecum. Thepolyps were 6 to 7 mm in size. These polyps were removedwith a cold snare. Resection and retrieval werecomplete. Two sessile polyps were found in the ascendingcolon. The polyps were 2 to 10 mm in size. These polypswere removed with a cold snare. Resection and retrieval were complete. Two sessile polyps were found in the rectum. The polyps were 5 to 12 mm in size. These polyps were removed with a cold snare. Resection and retrieval were complete. To prevent bleeding after the polypectomy, one hemostatic clip was successfully placed (MR conditional). There was no bleeding atthe end of the procedure. The entire examined colon appeared normal on direct and retroflexion views. Impression: - Two 6 to 7 mm polyps in the cecum, removed with a cold snare. Resected and retrieved. - Two 2 to 10 mm polyps in the ascending colon, removed with a cold snare. Resected andretrieved. - Two 5 to 12 mm polyps in the rectum, removed witha cold snare. Resected and retrieved. Clip (MR conditional) was placed. - The entire examined colon is normal on direct and retroflexion views. Recommendation: - Repeat colonoscopy for surveillance based on pathology results. Likely 3 years based on size of polyps. - Will need 2-3 day prep for next colonoscopy. Dr Pinky Eastman PINKY EASTMAN MD 09/17/2023 10:21:38 AM This report has been signed electronically. Number of Addenda: 0 Note Initiated On: 09/17/2023 9:32 AM Procedure Code(s): --- Professional --- 97485, Colonoscopy, flexible; with removal of tumor(s), polyp(s), or other lesion(s) by snare technique --- Technical --- 85721, Colonoscopy, flexible; with removal of tumor(s), polyp(s), or other lesion(s) by snare technique Diagnosis Code(s): --- Professional --- D12.0, Benign neoplasm of cecum D12.2, Benign neoplasm of ascending colon D12.8, Benign neoplasm of rectum R19.5, Other fecal abnormalities --- Technical --- D12.0, Benign neoplasm of cecum D12.2, Benign neoplasm of ascending colon D12.8, Benign neoplasm of rectum R19.5, Other fecal abnormalities CPT copyright 2021 [employer]. All rights reserved. The codes documented in this report are preliminary and upon finance manager reviewmay be revised to meet current compliance requirements. Procedure Date: 09/17/2023 9:32:[address] [place] [id number] Ritu Delgado [facility] GI PROCEDURE ORDERAB LES Final Result * Mammogram Outside (No Interpretation) (04/29/2017 12:00 AM EST) Narrative Dasia Hudson - 08/05/2023 11:29 AM EDT This study is for PACS storage only and not for interpretation. Procedure Note Dasia Hudson - 08/05/2023 This study is for PACS storage only and not for interpretation. us Unknown Unknown MD [facility] OUTSIDE IMAGING W/OUT INT ERPRETATION Final Result from Last 3 Months or Most Recently Relevant to Health Maintenance Insurance [facility] MEDICARE PART [facility] & B [facility] MEDICARE PART A & B Care Teams Tailor Men'S Ready To Wear Relationship Specialty Start Date End Date Ritu Delgado FNP [address] [place] [id number] PCP - General Nurse Practitioner 09/15/23 Additional Source Comments The information contained in this document represents components of the legal health record. It is not the complete legal health record.[facility]
--- OUTSIDE RECORDS SUMMARY | 2024-12-01 13:14 | XMS_ITS | Clinical Summary ---
Author Organization [facility] ity Address [address] [place] [address] Care Team Providers Care Nursing Secretary Name Role Phone Lucien Costa MD Primary Care Provider [phone] Social History Tobacco Use Types Packs/Day Years [...] 01/22/2008 Zoster Vaccines (1 of 2) 01/22/2008 Depression Screening 03/02/2024 COVID-19 Vaccine (1 - 2023-2 5 season) 2024 Influenza Vaccine (#1) 2024 RSV Immunization Adult [...] age to complete this topic Care Teams Nursing Secretary Relationship Specialty Start Date End Date Lucien Costa MD [address] [place] [phone] PCP - General Family Medicine 07/07/17
--- OUTSIDE RECORDS SUMMARY | 2024-12-01 13:15 | XMS_ITS | Encounter Summary ---
Author Organization [employer] Address [address] [facility] 7t [place] [address] Care Team Providers Care Category Manager Name Role Phone Suzy Delgado STOVE TENDER Primary Care Provider [phone] Vane Das Unavailable Tesfaye Barr MD Unavailable [phone] Encounter Details Date Type Department Care Team ([facility] st Contact Info) Description 10/09/[address] [phone] Suzy Delgado FNP [address] [place], [place] [phone] Social History Tobacco Use Types Packs/Day Years [...] the past 12 months, has t he [employer], gas, oil or water [employer] threatened to shut off services in your [...] on filedocumented in this encounter Care Teams Category Manager Relationship Specialty Start Date End Date Suzy Delgado FNP [address] [place] [address] PCP - General Family Medicine 08/22/22 Vane Das [address] [place] [address] Community Partner Behavioral Health 09/29/22 Tesfaye Barr MD [address] [place] [address] Pulmonary Disease 09/19/24 documented as of this encounter
== END 2024-12-01 11:53 | disposition home or self-care (01) ==
PROVIDERS: PCP Nurse Practitioner Women's Health; Visit Provider Anesthesiology
DX: M96.1 Postlaminectomy syndrome, not elsewhere classified (principal); M25.561 Pain in right knee; M25.562 Pain in left knee; G89.4 Chronic pain syndrome; Z45.1 Encounter for adjustment and management of infusion pump
CPT/HCPCS: 95991

== ENCOUNTER → 2024-12-01 11:20 | Outpatient (BNVA) | payer MEDICARE, MEDICAID, SELFPAY | PROVIDERS: PCP Nurse Practitioner Women's Health; Visit Provider Anesthesiology | DX: Z45.1 Encounter for adjustment and management of infusion pump (principal); M96.1 Postlaminectomy syndrome, not elsewhere classified; M25.561 Pain in right knee; M25.562 Pain in left knee; G89.4 Chronic pain syndrome; Z79.891 Long term (current) use of opiate analgesic | CPT/HCPCS: 95991 ==

== ENCOUNTER 2025-02-22 10:52 | Outpatient (AMB) | payer OTHER, SELFPAY ==
--- OUTSIDE RECORDS SUMMARY | 2009-12-31 09:00 | XMS_ITS | Continuity of Care Document ---
Author Organization [facility] Address [address] [place] [address] Phone Care Team Providers Care Head Sulfide Operator Name Role Phone MARCIO MALHOTRA, KADIE Unavailable Unavaila ble Advance Directives Directive Yes / No Effective Date File Name No Information Encounters Encounter Description Practice Location Reason(s) For Visit Diagnoses Date Provider Providers Copied on Encounter [facility], [address] [place] [address] [address], [place], [place], [id number], tel:[phone] [facility] No Information 0 0 MARCIO ROME. [address], [address], [place], [place], [id number] . tel:[phone] Family History Family Member Type Diagnosis Age At Onset No Information Payers Payer name Insurance type Covered green party ID Authoriza tion(s) No Information Social History Type Description Quantity Date Captured Comments Sex Female Smoking Status No Information Chief Complaint And Reason For Visit No Information Plan Of Treatment Date Type Action Status No Information History Of Present Illness Encounter Date Complaint History Of Prese nt Illness No Information Instructions Date Instruction Additional Infor mation No Information Assessments Type Assessment Date No Information
--- OUTSIDE RECORDS SUMMARY | 2025-02-22 10:58 | XMS_ITS | Encounter Summary ---
Author Organization [facility] Address [address] [facility] [address] [place] [address] Phone Care Team Providers Care Container Coordinator Name Role Phone Suzy Delgado NP Primary Care Provide r Encounter Details Date Type Department Care Team (Late st Contact Info) Description 09/16/2023 Procedure Pass [facility] Endoscopy Admitting Dept Virtual Department [address] [place] [address] Social History Tobacco Use Types Packs/Day Years [...] on filedocumented in this encounter Care Teams Container Coordinator Relationship Specialty Start Date End Date Suzy Delgado NP [address] [place] [address] PCP - General Nurse Practitioner 09/15/23 documented as of this encounter Additional Source Comments The information contained in this document represents components of the legal health record. It is not the complete legal health record.[facility]
--- OUTSIDE RECORDS SUMMARY | 2025-02-22 10:58 | XMS_ITS | Encounter Summary ---
Author Organization [facility] Address [address] 7[address] [place] [address] Care Team Providers Care Lithographic Camera Operator Name Role Phone Lenora Cabrera Primary Care Provider Unavailab Lenora Cardenas Unavailable Unavailable Suzy Delgado Primary Care Provider [phone] Vane Das Unavailable Vane Das Unavailable Tesfaye Barr MD Unavailable Encounter Details Date Type Department Care Team (Late st Contact Info) Description 06/25/2022 Telephone [facility] [address] [place] [address] Lenora Cabrera FNP Social History [...] Care Team (Late st Contact Info) Description 03/07/2025 9:45 AM EST Office Visit [facility] [address] [place] [phone] Linda Barba[address] [address] 04/03/2025 8:00 AM EST Office Visit [facility] [address] [place] [phone] Suzy Delgado FNP [address] [place] [address] 04/04/2025 9:45 AM EST Office Visit [facility] [address] [place] [phone] [address] 04/18/2025 7:30 AM EST Office Visit [facility] [address] [place] [phone] [address] 05/02/2025 9:45 AM EST Office Visit [facility] [address] [place] [phone] Linda Barba[address] [address] 05/17/2025 9:45 AM EDT Office Visit [facility] [address] [place] [phone] Linda Barba[address] [address] documented as of this encounter Visit Diagnoses Not on filedocumented in this encounter Care Teams Lithographic Camera Operator Relationship Specialty Start Date End Date Lenora Cabrera FNP PCP - General Family Medicine 12/27/21 08/21/22 Suzy Delgado FNP [address] [place] [address] PCP - General Family Medicine 08/22/22 Lenora Cabrera FNP Family Medicine 12/27/21 09/14/[address] [employer] [address] [place] [address] 09/15/22 03/04/23 Vane Das [address] [place] [address] Community Partner Behavioral Health 09/29/22 Tesfaye Barr MD [address] [place] [address] Pulmonary Disease 09/19/24 documented as of this encounter
--- OUTSIDE RECORDS SUMMARY | 2025-02-22 10:58 | XMS_ITS | Encounter Summary ---
Author Organization [employer] Address [address] [facility] [address] 7[address] [place] [address] Care Team Providers Care Medical Charge Entry Specialist Name Role Phone Suzy Delgado KATHY Primary Care Provider [phone] Vane Das Unavailable Tesfaye Barr MD Unavailable [phone] Encounter Details Date Type Department Care Team (Late st Contact Info) Description 11/09/2024 Orders Only [facility] Information Management [address] [place] [address] Provider, Not In System Social History Tobacco [...] the past 12 months, has t he [employer], gas, oil or water [employer] threatened to shut off services in your [...] Upcoming Encounters Date Type Department Care Team ([facility] st Contact Info) Description 03/07/2025 9:45 AM EST Office Visit [facility] [address] [place] [phone] Linda Barba, LLD [address] [place] [address] 04/03/2025 8:00 AM EST Office Visit [facility] [address] [place] [phone] Timmymacijose SuzyKATHY [address] [place] [address] 04/04/2025 9:45 AM EST Office Visit [facility] [address] [place] [phone] [address] 04/18/2025 7:30 AM EST Office Visit [facility] [address] [place] [phone] [address] 05/02/2025 9:45 AM EST Office Visit [facility] [address] [place] [phone] Linda Barba[address] [address] 05/17/2025 9:45 AM EDT Office Visit [address] [phone] Linda Barba[address] [address] documented as of this encounter Procedures Procedure [...] documented as of this encounter Care Teams Medical Charge Entry Specialist Relationship Specialty Start Date End Date Suzy Delgado FNP [address] [place] [address] PCP - General Family Medicine 08/22/22 Vane Das [address] [place] [address] Community Partner Behavioral Health 09/29/22 Tesfaye Barr MD [address] [place] [address] Pulmonary Disease 09/19/24 documented as of this encounter
--- OUTSIDE RECORDS SUMMARY | 2025-02-22 10:58 | XMS_ITS | Encounter Summary ---
Author Organization [facility] Address [address] [address] Phone Care Team Providers Care Records Management Specialist Name Role Phone Raymond Cerna MD Primary Care Provider [phone] Suzy Delgado NP Primary Care Provide r Encounter Details Date Type Department Care Team (Latest Contact Info) Description 07/31/2023 Transcribe Orders Virtual Department [address] [place] [address] Suzy Delgado, QUIN [address] [place] [address] Breast screening (Primary Dx) Social History Tobacco [...] unspecified documented in this encounter Care Teams Records Management Specialist Relationship Specialty Start Date End Date Raymond Cerna MD [address] [place] [address] PCP - General Internal Medicine 04/06/23 09/14/23 Suzy Delgado NP [address] [place] [address] PCP - General Nurse Practitioner 09/15/23 documented as of this encounter Additional Source Comments The information contained in this document represents components of the legal health record. It is not the complete legal health record.[facility]
--- OUTSIDE RECORDS SUMMARY | 2025-02-22 10:58 | XMS_ITS | Encounter Summary ---
Author Organization [employer] Address [address] 7t [place] [address] Care Team Providers Care Pile Driver Operator Helper Name Role Phone Tongjose Suzy SENIOR QUANTITY SURVEYOR Primary Care Provider +1- [phone] Vane Das Unavailable Tesfaye Brar MD Unavailable +1 [phone] Encounter Details Date Type Department Care Team (Late st Contact Info) Description 04/15/2023 Abstract [facility] [address] [place] [phone] Suzy Delgado FNP 102 [place], [place] [phone] Social History Tobacco Use Types Packs/Day Years [...] Description 03/07/2025 9:45 AM EST Office Visit [facility] [address] [place] [phone] Linda Barba[address] [address] 04/03/2025 8:00 AM EST Office Visit [facility] [address] [place] [phone] Suzy Delgado [address] [address] 04/04/2025 9:45 AM EST Office Visit [facility] [address] [place] [phone] [address] [address] 04/18/2025 7:30 AM EST Office Visit [facility] [address] [place] [phone] Linda Barba [address] [address] 05/02/2025 9:45 AM EST Office Visit [facility] [address] [place] [phone] Linda BarbaANGELI 102 [place] [address] 05/17/2025 9:45 AM EDT Office Visit [facility] 102 [place] [phone] Linda BarbaANGELI 102 [place] [address] documented as of this encounter Visit Diagnoses Not on filedocumented in this encounter Care Teams Pile Driver Operator Helper Relationship Specialty Start Date End Date Suzy Delgado FNP [address] [place] [address] PCP - General Family Medicine 08/22/22 Vane Das [address] [place] [address] [facility] 09/29/22 Tesfaye Barr MD [address] [place] [address] Pulmonary Disease 09/19/24 documented as of this encounter
--- OUTSIDE RECORDS SUMMARY | 2025-02-22 10:58 | XMS_ITS | Encounter Summary ---
Author Organization [facility] Address [address] [facility] [address] [place] [address] Phone Care Team Providers Care Fuel Oil Clerk Name Role Phone Suzy Delgado NP Primary Care Provide r Encounter Details Date Type Department Care Team (Late st Contact Info) Description 09/15/2023 Procedure Pass [facility] Endoscopy Admitting Dept Virtual Department 30 [place] [address] Social History Tobacco Use Types Packs/Day Years [...] on filedocumented in this encounter Care Teams Fuel Oil Clerk Relationship Specialty Start Date End Date Suzy Delgado NP [address] [place] [address] PCP - General Nurse Practitioner 09/15/23 documented as of this encounter Additional Source Comments The information contained in this document represents components of the legal health record. It is not the complete legal health record.[facility]
--- OUTSIDE RECORDS SUMMARY | 2025-02-22 10:58 | XMS_ITS | Encounter Summary ---
Author Organization [employer] Address [address] 7t [place] [address] Care Team Providers Care Roller Skate Repairer Name Role Phone Suzy Delgado KATHY Primary Care Provider +1- [phone] Vane Das Unavailable Tesfaye Barr MD Unavailable +1 [phone] Encounter Details Date Type Department Care Team (Late st Contact Info) Description 11/16/2024 Orders Only [facility] [address] [place] [address] Provider, Not In System Social History Tobacco [...] the past 12 months, has t he [employer], gas, oil or water [employer] threatened to shut off services in your [...] Upcoming Encounters Date Type Department Care Team ([facility] st Contact Info) Description 03/07/2025 9:45 AM EST Office Visit [facility] 102 [place] [phone] Linda Barba, LLD 102 [place] [address] 04/03/2025 8:00 AM EST Office Visit [facility] [address] [place] [phone] Jonesjenniferjose SuzyKATHY [address] [place] [address] 04/04/2025 9:45 AM EST Office Visit [facility] [address] [place] [phone] Linda Barba[address] [address] 04/18/2025 7:30 AM EST Office Visit [address] [phone] Linda Barba[address] [address] 05/02/2025 9:45 AM EST Office Visit [address] [phone] Linda Barba[address] [address] 05/17/2025 9:45 AM EDT Office Visit [address] [phone] Linda Barba[address] [address] documented as of this encounter Procedures Procedure [...] documented as of this encounter Care Teams Roller Skate Repairer Relationship Specialty Start Date End Date Suzy Delgado FNP 102 [place] [address] PCP - General Family Medicine 08/22/22 Vane Das 102 [place] [address] [facility] 09/29/22 Tesfaye Barr MD [address] [place] [address] Pulmonary Disease 09/19/24 documented as of this encounter
--- OUTSIDE RECORDS SUMMARY | 2025-02-22 10:58 | XMS_ITS | Encounter Summary ---
Author Organization [employer] Address [address] [facility] 7t [place] [address] Care Team Providers Care Wilderness Guide Name Role Phone Suzy Delgado ACCOUNTS PAYABLE LEAD Primary Care Provider +1- [phone] Vane Das Unavailable Tesfaye Barr MD Unavailable +1 [phone] Encounter Details Date Type Department Care Team ([facility] st Contact Info) Description 06/05/[address] [phone] Suzy Delgado FNP 102 [place], [place] [phone] Social History Tobacco Use Types Packs/Day Years [...] the past 12 months, has t he [employer], gas, oil or water [employer] threatened to shut off services in your [...] Deny Medication Name: Praluent Inj 75mg/Ml GPI/NDC: [id number] Decision Notes: PRALUENT INJ 75MG/ML is denied [...] Pharmacy states alirocumab (Praluent) 75 MG/ML injection [[id number]] Requires Prior-Auth documented in this encounter Plan of Treatment Upcoming Encounters Date Type Department Care Team (Late st Contact Info) Description 03/07/2025 9:45 AM EST Office Visit [facility] [address] [place] [phone] Linda Barba LLD [address] [place] [address] 04/03/2025 8:00 AM EST Office Visit [facility] [address] [place] [phone] Suzy Delgado FNP [address] [place] [address] 04/04/2025 9:45 AM EST Office Visit [facility] [address] [place] [phone] Linda Barba[address] [address] 04/18/2025 7:30 AM EST Office Visit [facility] [address] [place] [phone] [address] 05/02/2025 9:45 AM EST Office Visit [facility] [address] [place] [phone] [address] 05/17/2025 9:45 AM EDT Office Visit [facility] [address] [place] [phone] Linda Barba[address] [address] documented as of this encounter Visit Diagnoses Not on filedocumented in this encounter Care Teams Wilderness Guide Relationship Specialty Start Date End Date Suzy Delgado FNP [address] [place] [address] PCP - General Family Medicine 08/22/22 Vane Das [address] [place] [address] [facility] 09/29/22 Tesfaye Barr MD [address] [place] [address] Pulmonary Disease 09/19/24 documented as of this encounter
--- OUTSIDE RECORDS SUMMARY | 2025-02-22 10:58 | XMS_ITS | Encounter Summary ---
Author Organization [employer] Address [address] [place] [address] 7 [place] [address] Care Team Providers Care Venetian Blind Machine Operator Name Role Phone Lenora Cabrera Primary Care Provider Unavailab Lenora Cardenas Unavailable Unavailable Suzy Delgado Primary Care Provider +- [phone] Vane Das Unavailable Vane Das Unavailable Tesfaye Barr MD Unavailable Encounter Details Date Type Department Care Team (Late st Contact Info) Description 01/20/[address] [phone] Lenora Cabrera FNP Social History [...] Description 03/07/2025 9:45 AM EST Office Visit [facility] [address] [place] [phone] Linda Barba LLD [address] [place] [address] 04/03/2025 8:00 AM EST Office Visit [facility] [address] [place] [phone] Suzy Delgado FNP [address] [place] [address] 04/04/2025 9:45 AM EST Office Visit [facility] [address] [place] [phone] Linda Barba[address] [address] 04/18/2025 7:30 AM EST Office Visit [facility] [address] [place] [phone] [address] 05/02/2025 9:45 AM EST Office Visit [facility] [address] [place] [phone] Bismark Barbaima[address] [address] 05/17/2025 9:45 AM EDT Office Visit [address] [phone] Linda Barba[address] [address] documented as of this encounter Visit Diagnoses Not on filedocumented in this encounter Care Teams Venetian Blind Machine Operator Relationship Specialty Start Date End Date Lenora Cabrera FNP PCP - General Family Medicine 12/27/21 08/21/22 Suzy Delgado FNP [address] [place] [address] PCP - General Family Medicine 08/22/22 Lenora Cabrera FNP Family Medicine 12/27/21 09/14/22 Vane Das [address] [place] [address] 09/15/22 03/04/23 Vane Das [address] [place] [address] Community [facility] Behavioral Health 09/29/22 Tesfaye Barr MD [address] [place] [address] Pulmonary Disease 09/19/24 documented as of this encounter
--- OUTSIDE RECORDS SUMMARY | 2025-02-22 10:58 | XMS_ITS | Encounter Summary ---
Author Organization [facility] Address [address] [facility] [address] [place] [address] Phone Care Team Providers Care Die Cast Patternmaker Name Role Phone Suzy Delgado NP Primary Care Provide r Encounter Details Date Type Department Care Team (Late st Contact Info) Description 09/17/2023 Procedure Pass [facility] Endoscopy Admitting Dept Virtual Department 30 [place] [address] Social History Tobacco Use Types Packs/Day Years [...] on filedocumented in this encounter Care Teams Die Cast Patternmaker Relationship Specialty Start Date End Date Suzy Delgado NP [address] [place] [address] PCP - General Nurse Practitioner 09/15/23 documented as of this encounter Additional Source Comments The information contained in this document represents components of the legal health record. It is not the complete legal health record.[facility]
--- OUTSIDE RECORDS SUMMARY | 2025-02-22 10:58 | XMS_ITS | Encounter Summary ---
Author Organization [employer] Address [address] [facility] 7t [place] [address] Care Team Providers Care Die Finisher Forging Name Role Phone Suzy Delgado DRY PLASTERER Primary Care Provider +1- [phone] Vane Das Unavailable Tesfaye Barr MD Unavailable +1 [phone] Encounter Details Date Type Department Care Team (Late st Contact Info) Description 04/06/2024 Orders Only [facility] 102 [place] [phone] Suzy Delgado FNP 102 [place], [place] [phone] Acute cystitis without hematuria (Primary Dx) Social [...] Description 03/07/2025 9:45 AM EST Office Visit [address] [phone] [address] 04/03/2025 8:00 AM EST Office Visit [facility] [address] [place] [phone] Suzy Delgado FNP [address] [place] [address] 04/04/2025 9:45 AM EST Office Visit [facility] [address] [place] [phone] Jameson Linda[address] [address] 04/18/2025 7:30 AM EST Office Visit [facility] [address] [place] [phone] Linda Barba[address] [address] 05/02/2025 9:45 AM EST Office Visit [facility] [address] [place] [phone] Linda Barba[address] [address] 05/17/2025 9:45 AM EDT Office Visit [facility] [address] [place] [phone] [address] documented as of this encounter Visit Diagnoses Diagnosis Acute cystitis without hematuria- Primary documented in this encounter Additional Health Concerns Assessment Noted Time PHQ-9 Depression Total Score: 4 10/16/19 24 9:49 AM EDT documented as of this encounter Care Teams Die Finisher Forging Relationship Specialty Start Date End Date Suzy Delgado FNP [address] [place] [address] PCP - General Family Medicine 08/22/22 Vane Das 102 [place] [address] [facility] 09/29/22 Tesfaye Barr MD [address] [place] [address] Pulmonary Disease 09/19/24 documented as of this encounter
--- OUTSIDE RECORDS SUMMARY | 2025-02-22 10:59 | XMS_ITS | Encounter Summary ---
Author Organization [employer] Address [address] [facility] 7t [place] [address] Care Team Providers Care Performing Arts Technicians Name Role Phone Suzy Delgado CLINICAL ATHLETIC INSTRUCTOR Primary Care Provider +1- [phone] Vane Das Unavailable Tesfaye Barr MD Unavailable +1 [phone] Encounter Details Date Type Department Care Team ([facility] st Contact Info) Description 10/09/[address] [phone] Suzy Delgado FNP 102 [place], [place] [phone] Social History Tobacco Use Types Packs/Day Years [...] the past 12 months, has t he [employer], gas, oil or water [employer] threatened to shut off services in your [...] Description 03/07/2025 9:45 AM EST Office Visit [address] [phone] Linda Barba [address] [address] 04/03/2025 8:00 AM EST Office Visit [facility] [address] [place] [phone] Suzy Delgado FNP [address] [place] [address] 04/04/2025 9:45 AM EST Office Visit [facility] [address] [place] [phone] [address] [address] 04/18/2025 7:30 AM EST Office Visit [facility] [address] [place] [phone] Linda Barba[address] [address] 05/02/2025 9:45 AM EST Office Visit [facility] [address] [place] [phone] [address] Barba[address] [address] 05/17/2025 9:45 AM EDT Office Visit [facility] [address] [place] [phone] [address] [address] documented as of this encounter Visit Diagnoses Not on filedocumented in this encounter Care Teams Performing Arts Technicians Relationship Specialty Start Date End Date Suzy Delgado FNP [address] [place] [address] PCP - General Family Medicine 08/22/22 Vane Das [address] [place] [address] [facility] Behavior[facility] Health 09/29/22 Tesfaye Barr MD [address] [place] [address] Pulmonary Disease 09/19/24 documented as of this encounter
--- OUTSIDE RECORDS SUMMARY | 2025-02-22 10:59 | XMS_ITS | Encounter Summary ---
Author Organization [employer] Address [address] [place] [address] 7t [place] [address] Care Team Providers Care Chemical Processor Name Role Phone JonesSuzy ramos ORDNANCE ENGINEER Primary Care Provider +1- [phone] Vane Das Unavailable Tesfaye Barr MD Unavailable [phone] [phone] Encounter Details Date Type Department Care Team (Latest Contact Info) Description 12/30/2024 Results Follow-Up [facility] 102 [place] [phone] Suzy Delgado, ORDNANCE ENGINEER 102 [place], [place] [phone] POCT urinalysis dipstick manually resulted (CPT 21876), Tissue Transglutaminase Antibody, IgA, Lipase, Additional followed-up results: 6 Social History Tobacco Use Types Packs/Day Years [...] Description 03/07/2025 9:45 AM EST Office Visit [facility] [address] [place] [phone] Linda Barba[address] [address] 04/03/2025 8:00 AM EST Office Visit [facility] [address] [place] [phone] Suzy Delgado FNP [address] [place] [address] 04/04/2025 9:45 AM EST Office Visit [facility] [address] [place] [phone] [address] [address] 04/18/2025 7:30 AM EST Office Visit [facility] [address] [place] [phone] Linda Barba[address] [address] 05/02/2025 9:45 AM EST Office Visit [facility] [address] [place] [phone] Jameson, Linda, [address] [address] 05/17/2025 9:45 AM EDT Office Visit [facility] [address] [place] [phone] JamesonLinda andres[address] [address] documented as of this encounter Visit Diagnoses Not on filedocumented in this encounter Additional Health Concerns Assessment Noted Time PHQ-9 Depression Total Score: 4 10/16/19 24 9:49 AM EDT documented as of this encounter Care Teams Chemical Processor Relationship Specialty Start Date End Date Sandy KATHY Almonte [address] [place] [address] PCP - General Family Medicine 08/22/22 Vane Das 102 [place] [address] Community [facility] Behavioral Health 09/29/22 Tesfaye Barr MD [address] [place] [address] Pulmonary Disease 09/19/24 documented as of this encounter
--- OUTSIDE RECORDS SUMMARY | 2025-02-22 10:59 | XMS_ITS | Encounter Summary ---
Author Organization [employer] Address [address] [facility] [address] 7t [place] [address] Care Team Providers Care Safety Physician Name Role Phone Suzy Delgado KATHY Primary Care Provider +1- [phone] Vane Das Unavailable Tesfaye Barr MD Unavailable [phone] [phone] Reason for Visit * Reason Comments Med Refill Encounter Details Date Type Department Care Team (Late st Contact Info) Description 03/30/2024 Refill [facility] [address] [facility] [address] [place] [address] Armaan Garcia, [facility] [address] [place] [address] Other specified hypothyroidism Social History Tobacco Use [...] AM EST Office Visit [facility] [address] [place] [phone] Linda Barba[address] [address] 04/03/2025 8:00 AM EST Office Visit [facility] [address] [place] [phone] Suzy Delgado FNP [address] [place] [address] 04/04/2025 9:45 AM EST Office Visit [facility] [address] [place] [phone] [address] Bar[address] [address] 04/18/2025 7:30 AM EST Office Visit [facility] [address] [place] [phone] Linda Barba[address] [address] 05/02/2025 9:45 AM EST Office Visit [facility] [address] [place] [phone] Linda Barba[address] [address] 05/17/2025 9:45 AM EDT Office Visit [facility] [address] [place] [phone] [address] [address] documented as of this encounter Visit Diagnoses Diagnosis Other specified hypothyroidism documented in this encounter Additional Health Concerns Assessment Noted Time PHQ-9 Depression Total Score: 4 10/16/19 24 9:49 AM EDT documented as of this encounter Care Teams Safety Physician Relationship Specialty Start Date End Date Suzy Delgado FNP 102 [place] [address] PCP - General Family Medicine 08/22/22 Vane Das 102 [place] [address] [facility] 09/29/22 Tesfaye Barr MD [address] [place] [address] Pulmonary Disease 09/19/24 documented as of this encounter
--- OUTSIDE RECORDS SUMMARY | 2025-02-22 10:59 | XMS_ITS | Encounter Summary ---
Author Organization [employer] Address [address] [facility] [address] 7t [place] [address] Care Team Providers Care Supervisor Mapping Name Role Phone Suzy Delgado KATHY Primary Care Provider +1- [phone] Vane Das Unavailable Tesfaye Barr MD Unavailable [phone] [phone] Encounter Details Date Type Department Care Team (Late st Contact Info) Description 07/18/[address] [phone] Betsy Henry Social History Tobacco [...] duplicate message. * Telephone Encounter - Betsy Carl - 07/18/2024 2:47 PM EDT Waiting for a call back still from nursing waiting for home health aid would like to confirm diagnosis code and discuss medications documented in this encounter Plan of Treatment Upcoming Encounters Date Type Department Care Team (Late st Contact Info) Description 03/07/2025 9:45 AM EST Office Visit [facility] [address] [place] [phone] [address] [address] 04/03/2025 8:00 AM EST Office Visit [facility] [address] [place] [phone] Suzy Delgado [address] [address] 04/04/2025 9:45 AM EST Office Visit [facility] [address] [place] [phone] Linda Bar[address] [address] 04/18/2025 7:30 AM EST Office Visit [facility] [address] [place] [phone] Linda Barba [address] [address] 05/02/2025 9:45 AM EST Office Visit [facility] [address] [place] [phone] Linda Bar[address] [address] 05/17/2025 9:45 AM EDT Office Visit [facility] [address] [place] [phone] Linda Barba LLD 102 [place] [address] documented as of this encounter Visit Diagnoses Not on filedocumented in this encounter Additional Health Concerns Assessment Noted Time PHQ-9 Depression Total Score: 4 10/16/19 24 9:49 AM EDT documented as of this encounter Care Teams Supervisor Mapping Relationship Specialty Start Date End Date Suzy Delgado FNP 102 [place] [address] PCP - General Family Medicine 08/22/22 Vane Das 102 [place] [address] [facility] 09/29/22 Tesfaye Barr MD [address] [place] [address] Pulmonary Disease 09/19/24 documented as of this encounter
--- OUTSIDE RECORDS SUMMARY | 2025-02-22 10:59 | XMS_ITS | Clinical Summary ---
Author Organization [employer] Address [address] [place] [address] Care Team Providers Care Charge Account Authorizer Name Role Phone Suzy Delgado KATHY Primary Care Provider [phone] Vane Das Unavailable Tesfaye Barr MD Unavailable [...] management 020 Active LORazepam (Ativan) 0.5 MG tabletIndications:Gener alized anxiety disorder Take 1 tablet (0.5 mg) by mouth if needed in the morning and at bedtime for anxiety for up to 28 days. 56 tablet 023 Active triamcinolone (Kenalog) 0.1 % ointmentIndications:Ski n lesion Apply topically 2 times daily. 80 g 024 Active nicotine polacrilex (Nicorette) 4 MG gum Chew 1 each (4 mg) every 2 (two) hours if needed for smoking cessation. 220 each 2 Active albuterol 108 (90 Base) MCG/ACT inhalerIndications:COPD exacerbation (CMS/HCC) (HCC) Inhale 2 puffs every 4 (four) hours if needed for wheezing. 18 g 1 Active fluticasone furoate (Arnuity Ellipta) 100 MCG/ACT inhaler Inhale 1 puff Once per day. Rinse mouth with water after use to reduce aftertaste and incidence of candidiasis. Do not swallow. Active pravastatin (Pravachol) 20 MG tabletIndications:Pure hypercholesterolemia Take 1 tablet (20 mg) by mouth Once per day. 30 tablet 1 025 Active ARIPiprazole (Abilify) 5 MG tabletIndications:Gener alized anxiety disorder Take 1 tablet (5 mg) by mouth in the morning. 90 tablet 3 Active DULoxetine (Cymbalta) [address] capsuleIndications:Gene ralized anxiety disorder TAKE 2 CAPSULES BY MOUTH EVERY MORNING 180 capsule 3 Active levothyroxine (Tirosint) 150 MCG capsuleIndications:Othe r specified hypothyroidism Take 1 capsule (150 mcg) by mouth before breakfast. 90 capsule 1 025 Active omeprazole (PriLOSEC) [address] capsuleIndications:Karina roesophageal reflux disease without esophagitis Take 1 capsule (20 mg) by mouth before breakfast and before evening meal. Do not crush or chew. 180 capsule 1 025 2025 Active cholecalciferol (Vitamin D-3) 1.25 MG (04468 UT) capsule Take 1 capsule (50,000 Units) by mouth 1 (one) time per week. 8 capsule Active Umeclidinium [place] (Incruse Ellipta) 62.5 MCG/ACT aerosol powder Inhale 1 each Once per day. Active Linzess 145 MCG capsule Take 1 capsule by mouth Once per day. Active sulfamethoxazole-trimet hoprim (Bactrim DS) 800-160 MG tablet Take 1 tablet by mouth 2 times daily for 3 days. 6 tablet 2024 Active Problems Problem Noted Date Diagnosed Date Chronic pain syndrome 01/11/2025 Opioid dependence 01/11/2025 Scoliosis of lumbar spine 10/01/2024 Tobacco use disorder 11/08/2021 Assessment & Plan [...] Generalized anxiety disorder 12/24/2020 Assessment & Plan (12/28/2024 12:23 PM EDT): - Refilled duloxetine and aripiprazole as previously prescribed. Orders: ARIPiprazole (Abilify) 5 MG tablet; Take 1 tablet (5 mg) by mouth in the morning. DULoxetine (Cymbalta) [address] capsule; TAKE 2 CAPSULES BY MOUTH EVERY MORNING Assessment & Plan (10/12/2024 1:28 PM EDT): - Depression is active and managed with Abilify and Cymbalta; ongoing therapy. - Continue current antidepressant regimen and therapy. - Anxiety is present; Ativan available but not currently used. - Continue current psychiatric medications. Continue biweekly therapy sessions. Psychophysiological insomnia 12/24/2020 Vitamin D deficiency 08/11/2019 Assessment & Plan (12/30/2024 12:36 PM EDT): - Persistent vitamin D deficiency despite supplementation. - Increased vitamin D supplementation to 50,000 units once weekly. Will retest vitamin D level at next lab draw prior to follow-up visit on April 03, 2025. Orders: Vitamin D, 25-Hydroxy, Total, Immunoassay; Future Assessment & Plan (12/28/2024 12:23 PM EDT): - Refilled vitamin D supplementation. Orders: cholecalciferol (Vitamin D-3) 50 MCG (2000 UT) tablet; Take 1 tablet (50 mcg) by mouth Once per day. Assessment & Plan (10/12/2024 1:28 PM EDT): [...] D, (D2,D3), LC/MS/MS is recommended: order code 09462 (patients >2yrs). See Note 1 Note 1 For additional information, please refer to http://education.[employer]/faq/GHI150 (This link is being provided for informational/ educational purposes only.) Start vitamin D supplement now. Assessment & Plan (09/15/2022 10:18 AM EDT): Vitamin D,25-OH Date Value Ref Range Status 06/20/2022 12.2 (L) (20-50) NG/ML Final Comment: Testing performed or reported by [facility], a Service of [facility], [address] [place] [id number] Tab Mcdermott MD, Registered Nurse Renal [facility]# [id number] Start vit D3 supplement now. Repeat labs in 3 months. Chronic obstructive pulmonary disease 05/22/2019 Assessment & Plan (10/12/2024 1:28 PM EDT): - Followed by Dr Anderson at [facility]. - Plan is for full PFTs and LDCT testing and follow-up in 4 months. Encouraged patient to call and schedule these things now. She will do this. Assessment & Plan (09/15/2022 10:23 AM EDT): Unable to find record of PFTs. Will recommend for next follow-up. Patient did have LDCT for lung CA screening in September 2021. Will repeat annually. Esophageal reflux 05/22/2019 Assessment & Plan (12/30/2024 12:36 PM EDT): - Abdominal pain with relief after eating and increased gas production, starchy foods worsen symptoms. Possible duodenal ulcer considered. - Prescribed omeprazole (Prilosec) twice daily, ideally half an hour before eating. Referred to gastroenterology for further evaluation of possible ulcer. Orders: omeprazole (PriLOSEC) [address] capsule; Take 1 capsule (20 mg) by mouth before breakfast and before evening meal. Do not crush or chew. Referral to Gastroenterology; Future Hypothyroidism 05/22/2019 Overview (04/06/2023): Taking levothyroxine every morning 1 hour before food or other medications. Assessment & Plan (12/30/2024 12:36 PM EDT): - Hypothyroidism with elevated TSH despite current levothyroxine therapy. Suboptimal absorption suspected due to timing with other medications. - Changed levothyroxine from tablet to capsule formulation for improved absorption. Advised to take levothyroxine on an empty stomach, half an hour before breakfast and other medications. Will retest thyroid function at next lab draw prior to follow-up visit on April 03, 2025. Orders: TSH with Reflex to Free T4; Future levothyroxine (Tirosint) 150 MCG capsule; Take 1 capsule (150 mcg) by mouth before breakfast. Assessment & Plan (12/28/2024 12:23 PM EDT): - Refilled levothyroxine 150 mcg. - Repeat TSH drawn today for monitoring. Orders: levothyroxine (Synthroid, Levoxyl) 150 MCG tablet; Take 1 tablet (150 mcg) by mouth before breakfast. Assessment & Plan (10/12/2024 1:28 PM EDT): [...] Final Comment: Testing performed or reported by [facility], a Service of [facility], [address] [place] [id number] Tab Mcdermott MD, Registered Nurse Renal [facility]# [id number] Advised reduce levothyroxine to 200 mcg daily. [...] intake to minimize gastrointestinal side effects. Discussed [id number] supplement Prozenith but did not endorse due [...] pump in refilled every 3 months at [facility] in [place], followed by Dr. Slaughter in [place]. Assessment & Plan (10/12/2024 1:28 PM EDT): - Chronic lumbar spinal stenosis managed with intrathecal morphine pump; pain well-controlled. - Followed by Dr Slaughter in [place]. Assessment & Plan (09/15/2022 10:16 AM EDT): Chronic pain, stable. Currently managed with indwelling morphine pump, managed by pain specialist at [facility]. BLAYNE (obstructive sleep apnea) 12/03/2005 Assessment & Plan (10/12/2024 1:28 PM [...] referral today. Hyperlipidemia 12/01/2005 Assessment & Plan (12/30/2024 12:36 PM EDT): - Hyperlipidemia requiring pharmacologic management. Past sensitivity to statins, but no insurance coverage for PKSC-9 inhibitors. Will trial pravastatin now. - Prescribed pravastatin 20 mg daily. Ordered cholesterol panel to be drawn prior to follow-up visit on April 03, 2025 to assess response to therapy. Orders: Lipid Panel with Reflex to Direct LDL; Future Assessment & Plan (12/28/2024 12:23 PM EDT): - Hypercholesterolemia not currently managed due to intolerance to previous statin therapy and lack of insurance coverage for PCSK-9 inhibitors. - Prescribed pravastatin at low dose for 30 days to assess tolerance. Plan to increase dose and extend prescription to 90 days if well tolerated. Orders: pravastatin (Pravachol) 20 MG tablet; Take 1 tablet (20 mg) by mouth Once per day. Assessment & Plan (10/13/2023 1:27 PM EDT): Patient has tried multiple oral medications but had to discontinue due to significant SE profile. Patient had previously been on Praluent and tolerated well. Status post total abdominal hysterectomy 983 Resolved Problems Problem Noted Date Diagnosed Date Resolved Date Skin lesion 10/07/2023 01/30/2025 Assessment & Plan (10/07/2023 9:18 AM EDT): [...] or referral to dermatology. Gross hematuria 06/04/2023 01/30/2025 Assessment & Plan (06/04/2023 11:47 AM EDT): 63F w/ acute asymptomatic gross hematuria now possibly resolved. Ordered UA pt will come to clinic to have done. Follow up with results and proceed as indicated; if isolated hematuria then order abdominopelvic CT w/ and w/out contrast for urogram and STAT referral to urology for cystoscopy. If e/o glomerular bleed then refer to nephrology. Hematochezia 06/04/2023 10/16/2023 Assessment & Plan (06/04/2023 11:43 AM EDT): 63F overdue for CRC screen w/ acute hematochezia and otherwise noncontributory ROS. Ordered labs and placed STAT referral to GI for evaluation for colonoscopy. Pure hypercholesterolemia 04/26/2020 Depression 04/24/2014 09/15/2022 Overview (09/13/2022): Depression Nicotine dependence 12/24/2009 09/16/19 Encounters Date Type Department Care Team Description 02/10/[address] [phone] Suzy Delgado FNP Med Refill 02/02/2025 9:00 AM EST Immunization [address] [phone] Keely Torres LPN Encounter for immunization 02/01/2025 Travel 01/30/2025 3:00 PM EST Office Visit [address] [phone] Raymond Cerna MD UTI (urinary tract infection), uncomplicated (Primary Dx); Breast cancer screening by mammogram 01/30/2025 Orders Only [address] [phone] Raymond Cerna MD 01/30/2025 Travel 01/30/[address] [phone] Suzy Delgado FNP 01/03/2025 10:20 AM EST Immunization [address] [phone] Rehana Maravilla LPN 01/02/[address] [phone] Suzy Delgado FNP 12/30/2024 11:40 AM EDT Telemedicine [address] [phone] Suzy Delgado FNP Generalized abdominal pain (Primary Dx); Gastroesophageal reflux disease without esophagitis; Other specified hypothyroidism; Vitamin D deficiency; Pure hypercholesterolemia 12/30/2024 Results Follow-Up [address] [phone] Suzy Delgado FNP TSH with Reflex to Free T4, Vitamin D, 25-Hydroxy, Total, Immunoassay, T4, Free 12/30/2024 Results Follow-Up [address] [phone] Suzy Delgado FNP POCT urinalysis dipstick manually resulted (CPT 39290), Tissue Transglutaminase Antibody, IgA, Lipase, Additional followed-up results: 6 12/28/2024 11:00 AM EDT Office Visit [address] [phone] Suzy Delgado FNP Generalized abdominal pain (Primary Dx); Pure hypercholesterolemia; Generalized anxiety disorder; Vitamin D deficiency; Other specified hypothyroidism; Dysuria 12/22/[address] [phone] Suzy Delgado FNP from Last 3 Months Immunizations Immunization Administration Dates Next Due Influenza injectable quadriv alent preservative free 12/23/2021,12/24/2020,12/19/2019,12/30,11/28/2016,01/18/2016,03/12/2015 Influenza, High Dose Seasona l, Preservative Free 01/03/2025,09/27/2023 Influenza, Unspecified 12/30/2017,2016,01/18/2016,12/27 Influenza, seasonal, injecta ble, preservative free 02/08/2014 Moderna Covid-19 Vaccine 12+ 02/02/2025, 03/13/2021,06/22/2020,05/09 Pfizer Covid-19 Vaccine 12+ Bivalent 12/23/2021 Pneumococcal Conjugate PCV 20 09/19/2024 Pneumococcal Polysaccharide PPSV23 01/20/2011 Tdap 01/03/2025,02/08/2014 Zoster, Recombinant 01/02/2024,09/27/2023 Family History Medical History [...] Sign Reading Time Taken Comments Blood Pressure 118/74 01/30/2025 3:03 PM EST Pulse 80 01/30/2025 3:03 PM EST Temperature 36.4 C (97.6 F) 02/02/2025 9:11 AM EST Respiratory Rate - - Oxygen Saturation 98% 01/30/2025 3:03 PM EST Inhaled Oxygen Concentration - - Weight 104 kg (230 lb) 01/30/2025 3:03 PM EST Height 175.3 cm (5' 9 ) 12/28/2024 11:18 AM EDT Body Mass Index 33.97 12/28/2024 11:18 AM EDT Plan of Treatment Upcoming Encounters Date Type Department Care Team (Late st Contact Info) Description 03/07/2025 9:45 AM EST Office Visit [facility] [address] [place] [phone] Linda Barba LLD [address] [place] [phone] 04/03/2025 8:00 AM EST Office Visit [facility] [address] [place] [phone] Suzy Delgado FNP [address] [place] [address] 04/04/2025 9:45 AM EST Office Visit [address] [phone] Linda Barba[address] [address] 04/18/2025 7:30 AM EST Office Visit [address] [phone] [address] [address] 05/02/2025 9:45 AM EST Office Visit [address] [phone] Linda Barba[address] [address] 05/17/2025 9:45 AM EDT Office Visit [address] [phone] Bismark Barba[address] [address] Health Maintenance Due Date Last Done Comments CT Colonography 1958 Dental Prophylaxis 1958 Dental X-Ray: Bitewings 1958 FIT 1958 Sigmoidoscopy 1958 Alcohol/Substance Use Screening 1970 Mammogram 1998 RSV Patients and Patients Aged 60 years or older (1 - Risk 50-74 years 1-dose series) 01/22/2008 Lung Cancer Screening 11/05/2023 11/04/2022 FOBT 05/31/2024 06/01/2023 Depression Screening 10/15/2024 10/16/2023, 10/16/19 24 SDOH Screening 10/15/2024 10/16/2023 Dental Oral Exam 04/07/2025 10/04/2024 COVID-19 Vaccine ( season) 2025 02/02/2025, 12/23/2021, 03/13/2021, Additional history exists Tobacco Screening 12/30/2025 12/30/2024, 08/08/2022 FIT DNA/Cologuard 05/31/2026 06/01/2023 Colonoscopy 09/16/2026 09/17/2023 Colorectal Cancer Screening 09/16/2026 Dental X-Ray: Full Mouth 10/06/2027 10/04/2024 Lipid Panel 05/03/2029 05/03/2024, 08/0 08/2023, 04/01/2023, Additional history exists DTaP/Tdap/Td Vaccines (3 - Td or Tdap) 01/03/2035 01/03/2025, 02/08/2014 Zoster Vaccines Completed 01/02/2024, 09/27/2023 Pneumococcal Vaccine: 50+ Years Completed 09/19/2024, 01/20/2011 Hepatitis C Screening Completed 12/28/2024, 024 Influenza Vaccine Completed 01/03/2025, , 12/23/2021, Additional history exists HIB Vaccines Aged Out [...] Procedure Name Priority Date/Time Associated Diagnosis Comments POCT URINALYSIS DIPSTICK Routine 01/30/2025 3:20 PM EST UTI (urinary tract infection), uncomplicated SURESWAB(R) ADVANCED VAGINITIS PLUS, TMA Routine 01/30/2025 3:00 PM EST CULTURE, URINE, ROUTINE Routine 01/31/20 3:00 PM EST UTI (urinary tract infection), uncomplicated AMB REFERRAL TO GASTROENTEROLOGY Routine 01/24/2025 Generalized abdominal pain T4, FREE Routine 12/28/2024 11:54 AM EDT VITAMIN D,25-OH,TOTAL,IA Routine 12/28/2024 11:54 AM EDT Vitamin D deficiency TSH W/REFLEX TO FT4 Routine 12/28/2024 1 1:54 AM EDT Other specified hypothyroidism HEPATITIS A IGM ANTIBODY Routine 12/28/2024 11:52 AM EDT Generalized abdominal pain HEPATITIS B CORE ANTIBODY (IGM) Routine 12/28/2024 11:52 AM EDT Generalized abdominal pain HEPATITIS C AB W/REFL TO HCV RNA, QN, PCR Routine 12/28/2024 11:52 AM EDT Generalized abdominal pain CBC Routine 12/28/2024 11:52 AM EDT Generalized abdominal pain COMPREHENSIVE METABOLIC PANEL Routine 12/28/2024 11:52 AM EDT Generalized abdominal pain AMYLASE Routine 12/28/2024 11:52 AM EDT Generalized abdominal pain LIPASE Routine 12/28/2024 11:52 AM EDT Generalized abdominal pain TISSUE TRANSGLUTAMINASE AB, IGA Routine 12/28/2024 11:52 AM EDT Generalized abdominal pain POCT URINALYSIS DIPSTICK Routine 12/28/2024 11:32 AM EDT Dysuria Full PANORAMIC RADIOGRAPHIC IMAGE Routine 10/04/2024 9:45 AM EDT COMPREHENSIVE ORAL EVALUATION - NEW OR ESTABLISHED PATIENT Routine 10/04/2024 9:45 AM EDT LIPID PANEL, STANDARD Routine 05/03/2024 8:16 AM EST HM COLONOSCOPY Routine 09/17/2023 2:17 PM EDT LAB COLOGUARD COLON CANCER SCREEN Routine 06/01/2023 9:00 AM EDT Encounter for screening for malignant neoplasm of colon CT LOW DOSE SCREENING Routine 11/04/2022 9:06 AM EDT from Last 3 Months or Most Recently Relevant to Health Maintenance Results * (ABNORMAL) POCT urinalysis dipstick manually resulted (CPT 57710) (01/30/2025 3:20 PM EST) Only the most recent of2 resultswithin the time period is included. Glucose, UA Negative Bilirubin, UA Negative Ketones, UA Negative Spec Grav, UA 1.010 Blood, UA Negative Negative, None Detected pH, UA 6.0 Protein, UA Negative Urobilinogen, UA 0.2 Leukocytes, UA Negative Negative, Rare, Trace, 1+ (17), 2+ (35), 3+ (70), Trace (15) Nitrite, UA Positive(A) Negative, None Detected Urine (Urine, Random) 01/30/2025 3:20 PM EST Raymond Cerna MD POINT OF CARE TEST ENTER/EDIT ORDERABLES Final Result * (ABNORMAL) SureSwab?? Advanced Vaginitis Plus, TMA (01/30/2025 3:00 PM EST) SureSwab 9R) ADV Bacterial Vaginosis (BV), TMA POSITIVE(A) NEGATIVE [employer] Bianca Species NOT DETECTED NOT DETECTED [employer] Bianca glabrata NOT DETECTED NOT DETECTED [employer] Comment: Bianca species C. albicans, C. tropicalis, C. parapsilosis, and/or C. dubliniensis can be detected, but not differentiated, in the Bianca spp. result. Trichomonas vaginalis (TV), TMA NOT DETECTED NOT DETECTED [employer] [employer] Chlamydia trachomatis RNA, TMA, Urogenital NOT DETECTED NOT DETECTED [employer] Neisseria gonorrhoeae RNA, TMA, Urogenital NOT DETECTED NOT DETECTED [employer] Comment: For additional information, please refer to https://education.[employer]/faq/ZIT455 (This link is being provided for information/ educational purposes only.) 01/30/2025 3:00 PM EST 01/30/2025 3:54 PM EST Result [facility] Raymond Cerna MD LAB BODY FLUIDS AND STOOLS ORD ERABLES Final Result Performing Organization Address City/[facility]/ZIP Co de Phone Number [address], [place] [address] [employer] [address] [place] [phone] * Culture, Urine, Routine (01/30/2025 3:00 PM EST) Culture, Urine, Routine SEE NOTE [employer] Comment: CULTURE, URINE, ROUTINE Micro Number: [id number] Test Status: Final Specimen Source: Urine Specimen Quality: Adequate Result: Mixed genital cristina isolated. These superficial bacteria are not indicative of a urinary tract infection. No further organism identification is warranted on this specimen. If clinically indicated, recollect clean-catch, mid-stream urine and transfer immediately to Urine Culture Transport Tube. Urine Urine specimen obtained by clean catch procedure / Unknown 01/30/2025 3:00 PM EST 01/30/2025 3:54 PM EST Result [facility] Raymond Cerna MD LAB MICROBIOLOGY - GENERAL ORD ERABLES Final Result Performing Organization Address City/[facility]/ZIP Co de Phone Number [address], [place] [address] [employer] [employer] [address] [place] [phone] * Referral to Gastroenterology (01/24/2025) Result [facility] Suzy Delgado TOOL GRINDER SET UP OPERATOR GEAR OUTPATIENT REFERRAL ORDERA BLES Final Result * (ABNORMAL) Vitamin D, 25-Hydroxy, Total, Immunoassay (12/28/2024 11:54 AM EDT) Vitamin D,25-OH, Total, IA 17(L) 30 - 100 ng/mL [employer] [employer] Comment: Vitamin D Status 25-OH Vitamin D: Deficiency: <20 ng/mL Insufficiency: 20 - 29 ng/mL Optimal: > or = 30 ng/mL For 25-OH Vitamin D testing on patients on D2-supplementation and patients for whom quantitation of D2 and D3 fractions is required, the QuestAssureD(TM) 25-OH VIT D, (D2,D3), LC/MS/MS is recommended: order code 98716 (patients >2yrs). See Note 1 Note 1 For additional information, please refer to http://education.[employer]/faq/JQU141 (This link is being provided for informational/ educational purposes only.) Blood Venous blood specimen / Unknown 12/28/2024 11:54 AM EDT 12/28/2024 11:54 AM EDT Narrative Marqeta - 12/29/2024 10:56 AM EDT FASTING:NO FASTING: NO Result [facility] Suzy Delgado [facility] LAB BLOOD ORDERABLES Final Result [facility] [address], [place] [address] [employer] [employer] [address] [place] [phone] * (ABNORMAL) TSH with Reflex to Free T4 (12/28/2024 11:54 AM EDT) TSH w/Reflex to FT4 14.26(H) 0.40 - 4.50 mIU/L [employer] [employer] Blood Venous blood specimen / Unknown 12/28/2024 11:54 AM EDT 12/28/2024 11:54 AM EDT Narrative Marqeta - 12/29/2024 10:56 AM EDT FASTING:NO FASTING: NO Suzy Fortuneich TOOL GRINDER SET UP OPERATOR GEAR LAB BLOOD ORDERABLES Final Result Performing Organization Address [facility]/ZIP Co de Phone Number [address], [place] [address] [facility] [phone] * T4, Free (12/28/2024 11:54 AM EDT) Pathologist [facility] T4, Free 1.3 0.8 - 1.8 ng/dL [facility] 12/28/2024 11:5 4 AM EDT 12/28/2024 11:54 AM EDT Narrative [facility] - 12/29/2024 10:56 AM EDT FASTING:NO FASTING: NO Result [facility] LAB BLOOD ORDERABLES Final Result Performing Organization Address [facility] [[email or web address]] de Phone Number [address], [place] [address] [facility] [phone] * Hepatitis C Antibody with Reflex to HCV, RNA, Quantitative, Real-Time PCR (12/28/2024 11:52 AM EDT) [facility] Hepatitis C Antibody NON-REACT IRON NON-REACT IRON [facility] Comment: HCV antibody was non-reactive. There is no laboratory evidence of HCV infection. In most cases, no further action is required. However, if recent HCV exposure is suspected, a test for HCV RNA (test code 40931) is suggested. For additional information please refer to http://education.[employer]/faq/PHV82d5 (This link is being provided for informational/ educational purposes only.) Blood Venous blood specimen / Unknown 12/28/2024 11:52 AM EDT 12/28/2024 11:52 AM EDT Narrative [facility] - 12/29/2024 10:19 PM EDT FASTING:NO FASTING: NO Result [facility] LAB BLOOD ORDERABLES Final Result Performing Organization Address [facility] de Phone Number [facility] [address] [place] [phone] [employer] [employer] [address] [place] [phone] * Hepatitis A IgM (12/28/2024 11:52 AM EDT) Hepatitis A IgM NON-REACT IRON NON-REACT IRON [employer] [employer] Comment: For additional information, please refer to http://education.[employer]/faq/PBH563 (This link is being provided for informational/ educational purposes only.) Blood Venous blood specimen / Unknown 12/28/2024 11:52 AM EDT 12/28/2024 11:52 AM EDT Narrative [facility] - 12/29/2024 10:19 PM EDT FASTING:NO FASTING: NO [facility] LAB BLOOD ORDERABLES Final Result Performing Organization Address [facility] de Phone Number [address] [phone] [employer] [employer] [phone] * Tissue Transglutaminase Antibody, IgA (12/28/2024 11:52 AM EDT) Tissue Transglutaminase Antibody IgA <1.0 U/mL [facility] Comment: Value Interpretation ----- <15.0 Antibody not detected > or = 15.0 Antibody detected Blood Venous blood specimen / Unknown 12/28/2024 11:52 AM EDT 12/28/2024 11:52 AM EDT Narrative [facility] - 12/29/2024 10:19 PM EDT FASTING:NO FASTING: NO [facility] LAB BLOOD ORDERABLES Final Result Performing Organization Address [facility] [[email or web address]] de Phone Number [address] [place] [address] [facility] [place] [facility] [address] [place] [address] * Hepatitis B Core??Antibody (IgM) (12/28/2024 11:52 AM EDT) [facility] Hepatitis B Core Antibody IgM NON-REACT IRON NON-REACT IRON [facility] [place] [employer] Comment: For additional information, please refer to http://education.TrendBent/faq/CDF960 (This link is being provided for informational/ educational purposes only.) Blood Venous blood specimen / Unknown 12/28/2024 11:52 AM EDT 12/28/2024 11:52 AM EDT Narrative [facility] 12/29/2024 10:19 PM EDT FASTING:NO FASTING: NO Suzy Delgado [facility] LAB BLOOD ORDERABLES Final Result [facility] [address], [place] [address] [facility] [place] [employer] [address] [place] [address] * CBC (12/28/2024 11:52 AM EDT) [facility] White Blood Cell Count 5.7 3.8 - 10.8 Thousand/ uL [facility] [place] [employer] Red Blood Cell Count 4.40 3.80 - 5.10 Million/u L [facility] [place] [employer] [facility] Hemoglobin 13.4 11.7 - 15.5 g/dL [facility] [place] [employer] [facility] Hematocrit 40.6 35.0 - 45.0 % [facility] [place] [employer] [facility] MCV 92.3 80.0 - 100.0 fL [facility] [place] [employer] [facility] MCH 30.5 27.0 - 33.0 pg [facility] [place] [employer] [facility] MCHC 33.0 32.0 - 36.0 g/dL [facility] [place] [employer] [facility] Comment: For adults, a slight decrease in the calculated MCHC value (in the range of 30 to 32 g/dL) is most likely not clinically significant; however, it should be interpreted with caution in correlation with other red cell parameters and the patient's clinical condition. RDW 12.8 11.0 - 15.0 % [facility] Platelet Count 265 140 - 400 Thousand/ uL [facility] [place] [facility] MPV 10.2 7.5 - 12.5 fL [facility] [place] [facility] Blood Venous blood specimen / Unknown 12/28/2024 11:52 AM EDT 12/28/2024 11:52 AM EDT Narrative [facility] - 12/29/2024 10:19 PM EDT FASTING:NO FASTING: NO [facility] LAB BLOOD ORDERABLES Final Result Performing Organization Address [facility]/ZIP Co de Phone Number [address] [phone] [facility] [place] [facility] [address] [place] [phone] * Lipase (12/28/2024 11:52 AM EDT) Lipase 38 7 - 60 U/L [facility] [place] [employer] [facility] Blood Venous blood specimen / Unknown 12/28/2024 11:52 AM EDT 12/28/2024 11:52 AM EDT Narrative [facility] - 12/29/2024 10:19 PM EDT FASTING:NO FASTING: NO [facility] LAB BLOOD ORDERABLES Final Result Performing Organization Address City/[facility]/ZIP Co de Phone Number [address] [address] [facility] [place] [employer] [address] [place] [phone] * Amylase (12/28/2024 11:52 AM EDT) Amylase 23 21 - 101 U/L [facility] [place] [facility] Blood Venous blood specimen / Unknown 12/28/2024 11:52 AM EDT 12/28/2024 11:52 AM EDT Narrative [facility] - 12/29/2024 10:19 PM EDT FASTING:NO FASTING: NO Suzy Delgado [facility] LAB BLOOD ORDERABLES Final Result [facility] [address], [place] [address] [facility] [place] [employer] [address] [place] [address] * Comprehensive Metabolic Panel (12/28/2024 11:52 AM EDT) Glucose 86 65 - 139 mg/dL [facility] [place] [facility] Comment: Non-fasting reference interval Urea Nitrogen (BUN) 10 7 - 25 mg/dL [facility] [place] [facility] Creatinine, Serum 0.84 0.50 - 1.05 mg/dL [facility] [place] [employer] eGFR 77 > OR = 60 mL/min/1. 73m2 [facility] [place] [employer] [facility] BUN/Creatinine Ratio SEE NOTE: 6 - 22 (calc) [facility] Comment: Not Reported: BUN and Creatinine are within reference range. Sodium 137 135 - 146 mmol/L [facility] [place] [employer] Potassium 4.2 3.5 - 5.3 mmol/L [facility] [place] [facility] [facility] Chloride 104 98 - 110 mmol/L [facility] [place] [employer] Carbon Dioxide 25 20 - 32 mmol/L [facility] [place] [employer] [facility] Calcium 9.4 8.6 - 10.4 mg/dL [facility] [place] [employer] Protein, Total 7.0 6.1 - 8.1 g/dL [facility] Albumin 4.5 3.6 - 5.1 g/dL [facility] [place] [employer] [facility] Globulin 2.5 1.9 - 3.7 g/dL (calc) [facility] [place] [facility] [facility] Albumin/Globuli n Ratio 1.8 1.0 - 2.5 (calc) [facility] [place] [facility] Bilirubin, Total 0.5 0.2 - 1.2 mg/dL [facility] [place] [facility] [facility] Alkaline Phosphatase 59 37 - 153 U/L [facility] [place] [employer] [facility] AST 14 10 - 35 U/L [facility] ALT 18 6 - 29 U/L [facility] [place] [employer] Blood Venous blood specimen / Unknown 12/28/2024 11:52 AM EDT 12/28/2024 11:52 AM EDT Narrative [facility] - 12/29/2024 10:19 PM EDT FASTING:NO FASTING: NO Suzy Delgado [facility] LAB BLOOD ORDERABLES Final Result [facility] [address], [place] [address] [facility] [address] [place] [address] * (ABNORMAL) Lipid Panel, Standard (05/03/2024 8:16 AM EST) Cholesterol, Total 182 <200 mg/dL [facility] [place] [employer] HDL Cholesterol 59 > OR = 50 mg/dL [facility] [place] [employer] Triglycerides 127 <150 mg/dL [facility] [place] [employer] LDL Cholesterol 101(H) mg/dL [facility] [place] [employer] Comment: Reference range: <100 Desirable range <100 mg/dL for primary prevention; <70 mg/dL for patients with CHD or diabetic patients with > or = 2 CHD risk factors. LDL-C is now calculated using the Mart-Ha calculation, which is a validated novel method providing better accuracy than the Friedewald equation in the estimation of LDL-C. Mart SS et al. DEQUAN. 2013;310(19): 0563-6477 (http://education.[employer]/faq/YVP740) Chol/HDLC Ratio 3.1 <5.0 (calc) [facility] [place] [employer] Non-HDL Cholesterol 123 <130 mg/dL [facility] [place] [employer] Comment: For patients with diabetes plus 1 major ASCVD risk factor, treating to a non-HDL-C goal of <100 mg/dL (LDL-C of <70 mg/dL) is considered a therapeutic option. 05/03/2024 8:16 AM EST 05/03/2024 8:16 AM EST Narrative [facility] - 05/03/2024 9:31 PM EST FASTING:YES FASTING: YES us Ele Jara [facility] LAB BLOOD ORDERABLES Final Resul t [facility] [address] [facility], [place] [address] [facility] [place] [facility] [address] [place] [address] * Hm Colonoscopy (09/17/2023 2:17 PM EDT) us Not In System Provider HEALTH MAINTENANCE Edited Result - Final * (ABNORMAL) Cologuard?? colon cancer screening (06/01/2023 9:00 AM EDT) Cologuard Result Positive( A) Negative 06/05/2023 10:05 AM EDT [employer] (CLIA #:[id number]) Comment: POSITIVE TEST RESULT. A positive Cologuard [...] (Tatianna Ochoa al, N Engl J Med 2014;370(14):4472-3418.) Cologuard may produce a false negative or false positive result (no colorectal cancer or precancerous polyp present at colonoscopy follow up). A negative Cologuard test result does not guarantee the absence of CRC or advanced adenoma (pre-cancer). The current Cologuard screening interval is every 3 years. ([place] Cancer Society and U.S. Multi-Society Task Force). Cologuard performance data in a 10,000 patient pivotal study using colonoscopy as the reference method can be accessed at the following location: www.[employer]/results. Additional description of the Cologuard test process, warnings and precautions can be found at www.cologuard.com. Stool specimen (specimen) Rectal contents / Unknown 06/01/2023 9:00 AM EDT 06/02/2023 10:52 AM EDT [facility] LAB MOLECULAR DIAGNOSTICS ORDERABLES Final Result [employer] (CLIA #:[id number]) [place] [address], * CT Low Dose Screening (11/04/2022 9:06 AM EDT) Anatomical Region Laterality Modality Chest Computed Tomogra phy 11/04/2022 9:06 AM EDT Narrative 11/04/2022 10:[address] Chest LDCT Lung Program Reason: Other:; LDCT LUNG CANCER SCREENING PROGRAM, CURRENT SMOKER, 62 PK YR HX; Clinical Question(s): Other:; Special Instructions: BOOK AT [address] [place] [address] BOOK AFTER 10 08 2022 NO CHEST [...] lingular nodule, image 194, unchanged. OTHER FINDINGS: Oracle Iam Consultant view findings, lines and tubes: None. [...] above. Categorization based on Lung-RADS 2022 criteria. [email or web address] WSN: [id number] Ordering Physician: Lenora Cabrera Dictated By: Mayuri [...] Clinical Question(s): Other:; Special Instructions: BOOK AT [address] [place] [address]., [place], [place] BOOK AFTER 10 08 2022 NO [...] lingular nodule, image 194, unchanged. OTHER FINDINGS: Oracle Iam Consultant view findings, lines and tubes: None. [...] above. Categorization based on Lung-RADS 2022 criteria. [email or web address] WSN: [id number] Ordering Physician: Lenora Cabrera Dictated By: Mayuri Guerrero MD Dictated Date/Time: 11/04/22 10:34 a Reviewed By: Mayuri Guerrero MD Signed By: Mayuri Guerrero MD Signed Date/Time: 11/04/22 10:34 am Transcribed By: MIGNON Transcribed Date/Time: 11/04/22 10:18 am Lenora CHAVEZ IM CT PROCEDURES Final Result from Last 3 Months or Most Recently Relevant to Health Maintenance Insurance [facility] ST[facility] OPTIONS (HMO D-SNP) HSN FULL DENTAL - HSN FULL (MEDICAID) Care Teams Charge Account Authorizer Relationship Specialty Start Date End Date Suzy Delgado FNP [address] [place] [address] PCP - General Family Medicine 08/22/22 Vane Das [address] [place] [address] Community [facility] Behavioral [facility] 09/29/22 Tesfaye Barr MD [address] [place] [address] Pulmonary Disease 09/19/24
--- OUTSIDE RECORDS SUMMARY | 2025-02-22 10:59 | XMS_ITS | Encounter Summary ---
Author Organization [facility] Address [address] [place] [address] [place] [address] Phone Care Team Providers Care Freight Shipping Agent Name Role Phone Raymond Cerna MD Primary Care Provider [phone] Suzy Delgado NP Primary Care Provide r Encounter Details Date Type Department Care Team (Late st Contact Info) Description 04/13/2023 Procedure Pass [facility], Ct Scan - [address] [address] Social History Tobacco Use Types Packs/Day Years [...] on filedocumented in this encounter Care Teams Freight Shipping Agent Relationship Specialty Start Date End Date Raymond Cerna MD [address] [place] [address] [phone] PCP - General Internal Medicine 04/06/23 09/14/23 Suzy Delgado NP [address] [place] [address] PCP - General Nurse Practitioner 09/15/23 documented as of this encounter Additional Source Comments The information contained in this document represents components of the legal health record. It is not the complete legal health record.[facility]
--- OUTSIDE RECORDS SUMMARY | 2025-02-22 10:59 | XMS_ITS | Clinical Summary ---
Author Organization [facility] Address [address] [place] [address] Phone Care Team Providers Care Group Home Manager Name Role Phone Ritu Delgado NP Primary Care Provide r Allergies Active Allergy Reactions Criticality Noted Date [...] was provided with the number for the [place] Smokers Helpline at 1-329-RTEB-NOW. She does not feel as though she [...] pump in refilled every 3 months at [facility], followed by Dr. Mcmanus. She reports no [...] history exists SCREENING FOR DIABETES 04/13/2026 04/13/2023 COLONOSCOPY 09/29/2026 09/17/2023 COLORECTAL CANCER SCREENING 09/29/2026 LIPID PANEL 04/01/2028 04/01/2023 RSV VACCINE (1 - 1-dose 75+ series) 2033 HEPATITIS A VACCINES Aged Out No long [...] this topic Medical Devices Implanted Type Area Branch Operation Evaluation Manager Device Identifier Shelf Expiration Date Model / Serial / Lot Prosthetic Joint Prosthetic Joint Left: Hip Morphine Pump Clip Hemostasis 16mm /5ea - [id number] Implanted:Qty : 1 on 09/17/2023 by Pinky Eastman MD at [facility] [employer] [facility] 1170 Description:Polyp site Procedures Procedure Name Priority Date/Time Associated Diagnosis Comments ENDOSCOPY, COLON 09/17/2023 9:32 AM EDT BI MAMMOGRAM OUTSIDE (NO INTERPRETATION) Routine 04/29/2017 12:00 AM EST from Last 3 Months or Most Recently Relevant to Health Maintenance Results * ENDOSCOPY, COLON (09/17/2023 9:32 AM EDT) Narrative Transcriptions Pinky Eastman MD, MPH - 09/17/2023 9:32 AM EDT [facility] Patient Name: Danielle Starkey Attending MD:: PINKY EASTMAN MD, Procedure Date: 09/17/2023 9:32 AM Date of : 1960 Age: 63 Admit Type: Outpatient Gender: Female Room: [facility] Referring MD: Ritu Delgado Exam Type: Colonoscopy [...] monitored continuously. The Olympus adult variable colonoscope [id number] #2 was introduced through the anus and advanced to the cecum, identified by appendiceal orifice andileocecal valve. The colonoscopy was performed without difficulty. The patient tolerated the procedurewell. The quality of the bowel preparation was evaluated using the BBPS ([place] Bowel Preparation Scale)with scores of: Right Colon [...] 9:32 AM Procedure Code(s): --- Professional --- 23564, Colonoscopy, flexible; with removal of tumor(s), polyp(s), or other lesion(s) by snare technique --- Technical --- 13737, Colonoscopy, flexible; with removal of tumor(s), polyp(s), [...] R19.5, Other fecal abnormalities CPT copyright 2021 [employer]. All rights reserved. The codes documented in this report are preliminary and upon electrotype molder reviewmay be revised to meet current compliance requirements. Procedure Date: 09/17/2023 9:32:[address] [place] [address] Ritu Delgado NP GI PROCEDURE ORDERABL ES Final Result * Mammogram Outside (No Interpretation) [...] Most Recently Relevant to Health Maintenance Insurance [facility]IC[facility] PART A & [facility] & [facility] & [facility] MEDICARE PART A & B Care Teams Group Home Manager Relationship Specialty Start Date End Date Ritu Delgado NP [address] [place] [address] PCP - General Nurse Practitioner 09/15/23 Additional Source Comments The information contained in this document represents components of the legal health record. It is not the complete legal health record.[facility]
--- OUTSIDE RECORDS SUMMARY | 2025-02-22 10:59 | XMS_ITS | Clinical Summary ---
Author Organization [facility] ity Address [address] [place] [address] Care Team Providers Care A&P Mechanic Name Role Phone Lucien Costa MD Primary Care Provider [phone] Social History Tobacco Use Types Packs/Day Years [...] Depression Screening 03/02/2024 COVID-19 Vaccine (1 - 2024-2 6 season) 2024 Influenza Vaccine (#1) 2024 RSV [...] age to complete this topic Care Teams A&P Mechanic Relationship Specialty Start Date End Date Lucien Costa MD [address] [place] [phone] PCP - General Family Medicine 07/07/17
--- OUTSIDE RECORDS SUMMARY | 2025-02-22 10:59 | XMS_ITS | Encounter Summary ---
Author Organization [facility] Address [address] [place] [address] Phone Care Team Providers Care Communication Center Coordinator Name Role Phone Raymond Cerna MD Primary Care Provider [phone] Suzy Delgado NP Primary Care Provide r Encounter Details Date Type Department Care Team (Late st Contact Info) Description 06/19/2023 Procedure Pass [facility] Endoscopy Admitting Dept Virtual Department [address] [place] [address] Social History Tobacco Use Types Packs/Day Years [...] on filedocumented in this encounter Care Teams Communication Center Coordinator Relationship Specialty Start Date End Date Raymond Cerna MD [address] [place] [address] [phone] PCP - General Internal Medicine 04/06/23 09/14/23 Suzy Delgado NP [address] [place] [phone] PCP - General Nurse Practitioner 09/15/23 documented as of this encounter Additional Source Comments The information contained in this document represents components of the legal health record. It is not the complete legal health record.[facility]
--- OUTSIDE RECORDS SUMMARY | 2025-02-22 10:59 | XMS_ITS | Encounter Summary ---
Author Organization [employer] [facility] Address [address] [place] [address] Care Team Providers Care Service Electrician Name Role Phone Suzy Delgado KATHY Primary Care Provider [phone] Vane Das Unavailable Tesfaye Barr MD Unavailable [phone] Encounter Details Date Type Department Care Team (Late st Contact Info) Description 09/17/2023 Orders Only [facility] Information Management [address] [place] [address] Provider, Not In System Social History Tobacco [...] AM EST Office Visit [facility] [address] [place] [phone] Linda Barba LLD [address] [place] [address] 04/03/2025 8:00 AM EST Office Visit [facility] [address] [place] [phone] Suzy Delgado FNP [address] [place], [place] 04/04/2025 9:45 AM EST Office Visit [address] [phone] Linda Barba [address] [address] 04/18/2025 7:30 AM EST Office Visit [address] [phone] [address] 05/02/2025 9:45 AM EST Office Visit [address] [phone] Linda Barba [address] [address] 05/17/2025 9:45 AM EDT Office Visit [address] [phone] Linda Barba[address] [address] documented as of this encounter Procedures Procedure Name Priority Date/Time Associated Diagnosis Comments HM COLONOSCOPY Routine 09/17/2023 2:17 PM EDT documented in this encounter Results * Hm Colonoscopy (09/17/2023 2:17 PM EDT) us Not In System Provider [facility] Edited Result - Final documented in this encounter Visit Diagnoses Not on filedocumented in this encounter Care Teams Service Electrician Relationship Specialty Start Date End Date Suzy Delgado FNP [address] [place] [address] PCP - General Family Medicine 08/22/22 Vane Das [address] [place] [address] Community [facility] Behavioral [facility] 09/29/22 Tesfaye Barr MD [address] [place] [address] Pulmonary Disease 09/19/24 documented as of this encounter
--- OUTSIDE RECORDS SUMMARY | 2025-02-22 10:59 | XMS_ITS | Encounter Summary ---
Author Organization [employer] [facility] Address [address] [place] [address] 7[address] [place] [address] Care Team Providers Care Vp Product Name Role Phone Suzy Delgado DIRECTOR PRISON Primary Care Provider [phone] Vane Das Unavailable Tesfaye Barr MD Unavailable [phone] Encounter Details Date Type Department Care Team (Late st Contact Info) Description 12/30/2024 Results Follow-Up [facility] [address] [place] [address] Suzy Delgado FNP [address] [place], [place] [phone] TSH with Reflex to Free T4, Vitamin D, 25-Hydroxy, Total, Immunoassay, T4, Free Social History Tobacco Use Types Packs/Day Years [...] your housing situation today? I have paresh sing 10/16/[address] you li [...] AM EST Office Visit [facility] [address] [place] [phone] Linda Barba[address] [address] 04/03/2025 8:00 AM EST Office Visit [facility] [address] [place] [phone] Suzy Delgado FNP [address] [place] [address] 04/04/2025 9:45 AM EST Office Visit [facility] [address] [place] [phone] Linda Barba[address] [address] 04/18/2025 7:30 AM EST Office Visit [facility] [address] [place] [phone] Linda Barba[address] [address] 05/02/2025 9:45 AM EST Office Visit [facility] [address] [place] [phone] Linda Barba[address] [address] 05/17/2025 9:45 AM EDT Office Visit [facility] [address] [place] [phone] Linda Barba[address] [address] documented as of this encounter Visit Diagnoses Not on filedocumented in this encounter Additional Health Concerns Assessment Noted Time PHQ-9 Depression Total Score: 4 10/15/ 24 9:49 AM EDT documented as of this encounter Care Teams Vp Product Relationship Specialty Start Date End Date Suzy Delgado FNP [address] [place] [address] PCP - General Family Medicine 08/22/22 Vane Das [address] [place] [address] Community Partner Behavioral Health 09/29/22 Tesfaye Barr MD [address] [place] [address] Pulmonary Disease 09/19/24 documented as of this encounter
--- OUTSIDE RECORDS SUMMARY | 2025-02-22 10:59 | XMS_ITS | Encounter Summary ---
Author Organization [employer] Address [address] [place] [address] Care Team Providers Care Diet Supervisor Name Role Phone Suzy Delgado KATHY Primary Care Provider [phone] Vane Das Unavailable Tesfaye Barr MD Unavailable [phone] Encounter Details Date Type Department Care Team (Late st Contact Info) Description 09/21/2023 Orders Only [facility] Information Management [address] [place] [address] Provider, Not In System Social History Tobacco [...] Description 03/07/2025 9:45 AM EST Office Visit [facility] [address] [place] [phone] Linda Barba LLD [address] [place] [address] 04/03/2025 8:00 AM EST Office Visit [facility] [address] [place] [phone] Suzy Delgado FNP [address] [place], [place] 04/04/2025 9:45 AM EST Office Visit [address] [phone] Linda Barba [address] [address] 04/18/2025 7:30 AM EST Office Visit [address] [phone] [address] 05/02/2025 9:45 AM EST Office Visit [address] [phone] Linda Barba [address] [address] 05/17/2025 9:45 AM EDT Office Visit [address] [phone] Linda Barba[address] [address] documented as of this encounter Procedures Procedure Name Priority Date/Time Associated Diagnosis Comments SURGICAL PATHOLOGY Routine 09/17/2023 1:54 PM EDT documented in this encounter Results * Surgical Pathology (09/17/2023 1:54 PM EDT) us Not In System Provider LAB PATHOLOGY ORDERABLES Edited Result - Final documented in this encounter Visit Diagnoses Not on filedocumented in this encounter Care Teams Diet Supervisor Relationship Specialty Start Date End Date Suzy Delgado FNP [address] [place] [phone] PCP - General Family Medicine 08/22/22 Vane Das [address] [place] [phone] [facility] 09/29/22 Tesfaye Barr MD [address] [place] [phone] Pulmonary Disease 09/19/24 documented as of this encounter
--- OUTSIDE RECORDS SUMMARY | 2025-02-22 10:59 | XMS_ITS | Encounter Summary ---
Author Organization [employer] Address [address] [facility] 7t [place] [address] Care Team Providers Care Physician Extender Name Role Phone Sandy Suzy ASSOCIATE THEATRE PROFESSOR Primary Care Provider [phone] Vane Das Unavailable Tesfaye Barr MD Unavailable [phone] Encounter Details Date Type Department Care Team ([facility] st Contact Info) Description 09/08/[address] [phone] Suzy Delgado FNP [address] [place], [place] [phone] Social History Tobacco Use Types Packs/Day Years [...] AM EDT Noted * Telephone Encounter - Kira Solis - 09/08/2024 9:20 AM EDT Symptoms: Coughing [...] Comp / Auto: No Insurance: Name: Address: Multiple Effect Evaporator Operator's Name: Date of Injury: Phone Number: Fax Number: Claim Number Additional Comments: Appointment made for today in location for 420 with MK is the booked correctly . documented in this encounter Plan of Treatment Upcoming Encounters Date Type Department Care Team (Late st Contact Info) Description 03/07/2025 9:45 AM EST Office Visit [facility] [address] [place] [phone] Linda Barba [address] [address] 04/03/2025 8:00 AM EST Office Visit [facility] [address] [place] [phone] Suzy Delgado [address] [address] 04/04/2025 9:45 AM EST Office Visit [facility] [address] [place] [phone] Linda Barba [address] [address] 04/18/2025 7:30 AM EST Office Visit [facility] [address] [place] [phone] Linda Barba [address] [address] 05/02/2025 9:45 AM EST Office Visit [facility] [address] [place] [phone] Linda Barba [facility] [address] [place] [address] 05/17/2025 9:45 AM EDT Office Visit [facility] [address] [place] [phone] Linda Barba [place] [address] [place] [address] documented as of this encounter Visit Diagnoses Not on filedocumented in this encounter Additional Health Concerns Assessment Noted Time PHQ-9 Depression Total Score: 4 10/16/19 24 9:49 AM EDT documented as of this encounter Care Teams Physician Extender Relationship Specialty Start Date End Date Suzy Delgado FNP [address] [place] [phone] PCP - General Family Medicine 08/22/22 Vane Das [address] [place] [phone] [facility] 09/29/22 Tesfaye Barr MD [address] [place] [phone] Pulmonary Disease 09/19/24 documented as of this encounter
--- OUTSIDE RECORDS SUMMARY | 2025-02-22 10:59 | XMS_ITS | Encounter Summary ---
Author Organization [facility] Address [address] [place] [phone] Phone Care Team Providers Care Supervisor Wound Name Role Phone Lucien Costa MD Primary Care Provider [phone] Lenora Cabrera NP Primary Care Provider Raymond Cerna MD Primary Care Provider [phone] Suzy Delgado NP Primary Care Provide r Encounter Details Date Type Department Care Team (Late st Contact Info) Description 04/16/2021 Ancillary Orders [facility],Outside Imaging [address] [place] [address] System, Provider Not In, [place] [address] Social History Tobacco Use Types Packs/Day Years [...] on filedocumented in this encounter Care Teams Supervisor Wound Relationship Specialty Start Date End Date Lucien Costa MD [address] [place] [phone] [email or web address] PCP - General Family Medicine 11/08/13 04/25/21 Lenora Cabrera NP [address] [place] [address] PCP - General Family Medicine 04/26/21 04/05/23 Raymond Cerna MD [address] [place] [address] PCP - General Internal Medicine 04/06/23 09/14/23 Suzy Delgado NP [address] [place] [phone] PCP - General Nurse Practitioner 09/15/23 documented as of this encounter Additional Source Comments The information contained in this document represents components of the legal health record. It is not the complete legal health record.[facility]
--- OUTSIDE RECORDS SUMMARY | 2025-02-22 10:59 | XMS_ITS | Encounter Summary ---
Author Organization [facility] Address [address] [facility] [address] [place] [address] Phone Care Team Providers Care Senior Planner Name Role Phone Raymond Cerna MD Primary Care Provider [phone] Suzy Delgado NP Primary Care Provide r Encounter Details Date Type Department Care Team (Late st Contact Info) Description 04/06/2023 Transcribe Orders Virtual Department [address] [place] [address] System, Provider Not In, [facility] [address] [address] Acute bilateral low back pain without sciatica [...] clinician's provided indication for this examination in [facility]: Outside Radiology Order; ACUTE BILATERAL LOW BACK [...] clinician's provided indication for this examination in [facility]:Outside Radiology Order; ACUTE BILATERAL LOW BACK PAIN [...] sciatica documented in this encounter Care Teams Senior Planner Relationship Specialty Start Date End Date Raymond Cerna MD [address] [place] [address] PCP - General Internal Medicine 04/06/23 09/14/23 Suzy Delgado NP [address] [place] [phone] PCP - General Nurse Practitioner 09/15/23 documented as of this encounter Additional Source Comments The information contained in this document represents components of the legal health record. It is not the complete legal health record.[facility]
[2025-02-22 11:24] VITALS: BP 136/71; PULSE 79; RESP 16; O2SAT 98; BMI 33.3
--- NOTE | 2025-02-22 11:24 | MHC.OFFVIS ---
Vital Signs 02/22/25 11:24 Height 5 ft 10 in Weight 232 lb BMI 33.3 BP 136/71 Blood Pressure Location Lt brachial Position Supine Respiration 16 Pulse 79 Pulse Source Pulse Oximeter Pulse Oximetry (%) 98 Oxygen Delivery Method Room Air Intake Visit Reasons: [facility] REFILL Contact Center Professional Required: No Accompanied by: Self / Same As Patient Allergies codeine Allergy (Unknown, Verified 02/22/25 11:25) Unknown nabumetone Allergy (Unknown, Verified 02/22/25 11:25) unknown adhesive tape Allergy (Severe, Uncoded 06/30/24 11:25) Rash latex Allergy (Severe, Uncoded 06/30/24 11:25) Rash pollen Allergy (Unknown, Uncoded 06/30/24 11:25) Unknown [facility] Medical History Presence of intrathecal pump Sleep apnea Chronic pain syndrome Increased BMI Presence of intrathecal pump Back pain Hypothyroid GERD (gastroesophageal reflux disease) COPD (chronic obstructive pulmonary disease) Postlaminectomy syndrome Surgical History History of hip surgery History of hysterectomy Social History Patient Tobacco Use Status: Current everyday Tobacco user Tobacco use type: Cigarette Cigarette Packs Per Day: 1 Cigarettes Per Day: 20.0 Physical Exam Vital Signs: Last Vital Signs Pulse 79 02/22/25 11:24 Resp 16 02/22/25 11:24 BP 136/71 02/22/25 11:24 Pulse Ox 98 02/22/25 11:24 Oxygen Delivery Method Room Air 02/22/25 11:24 BMI result Body Mass Index 33.3 Assessment & Plan Assessment & Plan (1) Postlaminectomy syndrome: Code(s): M96.1 - Postlaminectomy syndrome, not elsewhere classified Category: Medical Plan: THE PATIENT CAME TODAY IN THE office FOR THE CHANGE OF THE MEDICATION IN her PAIN PUMP. The name and date of were verified and informed consent was obtained for the procedure. The pump was interrogated and the residual amount of fluid was found to be 0.7 mL. SHE WAS POSITIONED supine on the bed AND THE AREA OF THE INTRATHECAL PUMP WAS PREPPED WITH CHLORAPREP. The fenestrated drape was sterilely applied over the area of the pump. Sterile gloves were worn and of the aspiration system was assembled containing 2 in 22 gauge non-coring needle, the needle was connected to extension tubing which was connected to the 20 cc sterile syringe. The pain pump was palpated under the skin in the patient's left abdominal area. The needle was inserted through the skin and the central plug of the pain pump and fluid was aspirated. The clear fluid was going into the syringe the total amount of the fluid was 1.6 mL. After that a new batch of medication was obtained which was containing morphine 2 mg and bupivacaine 15 mg per mL. The admixture was made in two 20 cc syringes prepared by [facility] compounding pharmacy. The syringe was connected to the bacterial filter, and then connected to the extension tubing. After that the medication in the syringe was slowly instilled into the pump with aspirations at 35 , 25 and 10 and 5 cc sanchez. The programing of the pump left as it was before. Her next appointment is02/22/2025, the meds concentrations will stay as prior in 40 mL preservative-free normal saline divided between 2 20 cc syringes. The next batch of the medication will remain the same and will contain morphine 2 mg and bupivacaine 15 milligrams/mL the patient receives continuous 0.7 mg of morphine with corresponding 5.258 mg of bupivacaine a day, she is also able to receive 0.0005 mg of morphine on demand with corresponding dose of bupivacaine twice a day. (2) Bilateral knee pain: Code(s): M25.561 - Pain in right knee; M25.562 - Pain in left knee Category: Medical Plan: Naloxone is prescribed for the potential respiratory depression on 10/01/2023 she filled it up that in 10/02/2023. Her pump is getting to the end of the life. We would need to replace the pump in April of 2024. We will schedule her for the procedure. - (3) Left knee pain: Code(s): M25.562 - Pain in left knee Category: Medical Plan: (4) Chronic pain syndrome: Code(s): G89.4 - Chronic pain syndrome Category: Medical Plan: Coding Level of Care Code Procedure Only Diagnoses Postlaminectomy syndrome M96.1 Bilateral knee pain M25.561; M25.562 Left knee pain M25.562 Chronic pain syndrome G89.4
== END 2025-02-22 11:30 | disposition home or self-care (01) ==
PROVIDERS: PCP Nurse Practitioner Women's Health; Visit Provider Anesthesiology
DX: M96.1 Postlaminectomy syndrome, not elsewhere classified (principal); M25.561 Pain in right knee; M25.562 Pain in left knee; G89.4 Chronic pain syndrome; Z45.1 Encounter for adjustment and management of infusion pump
CPT/HCPCS: 95991

== ENCOUNTER → 2025-02-22 10:52 | Outpatient (BNVA) | payer OTHER, SELFPAY | PROVIDERS: PCP Nurse Practitioner Women's Health; Visit Provider Anesthesiology | DX: M96.1 Postlaminectomy syndrome, not elsewhere classified (principal); M25.561 Pain in right knee; M25.562 Pain in left knee; G89.4 Chronic pain syndrome | CPT/HCPCS: 95991 ==